=== PATIENT | male | born 1935 | race Caucasian/White ===

== ENCOUNTER 2016-09-07 09:44 | Observation (INO) | payer MEDICARE, MEDICAID ==
[~2016-09-07] VITALS: Ht 170.2 cm; Wt 79.4 kg
[~2016-09-07 09:44] MED LIST: ALLO15TA PO; AMLO5TAB2 PO; ASPI325T PO; ASPI32ECTA PO; CIPR-250 PO; EZETIMIBE 10 MG TAB (ZETIA) PO SCH; FEBU40TA PO; FEBUXOSTAT 40 MG TABLET (ULORIC) PO SCH; FERR325T3 PO; FLAG250T PO; FLOM5CAP PO; HYDR-4267 PO; HYDR25TAB PO; ISOS30TA4 PO; ISOSORBIDE MON. (IMDUR) 30 MG XR TAB PO SCH; LEVO25TA5 PO; LEVO500T32 PO; LEVO75TA4 PO; LEVOTHYROXINE 0.025 MG TAB (25 MCG) PO SCH; METO100T PO; METOPROLOL TARTRATE 100 MG TAB PO SCH; PROC1INJ5 INJ; TAMSULOSIN 0.4 MG CAP PO SCH; VITAMIN D 1,000 INTERNATIONAL UNITS TABLET PO SCH; ZETI10TA2 PO; ZYLO300T4 PO; [UNRECOGNIZED DRUG - OTHER] PO; amLODIPine 5 MG TAB PO SCH
[2016-09-07] MEDS ORDERED: IPRATROPIUM 0.5MG/ALBUTEROL 2.5MG INH SOL UD 3ML (DUONEB)(J7620) As Ordered ONE ×2 (10:26→15:51)
[2016-09-07] MEDS ORDERED: ALBUTEROL SULFATE 2.5 MG/0.5 ML INH NEB SOLN As Ordered ONE (10:27)
[2016-09-07] MEDS ORDERED: ONDANSETRON 4MG/2ML VIAL (J2405) As Ordered ONE ×2 (10:34→13:14)
[2016-09-07] MEDS ORDERED: MORPHINE 2 MG/ML 1ML SYRINGE As Ordered ONE ×4 (10:34→15:01)
[2016-09-07 11:08] LABS: BASO % 0.2 % (0.0-1.0); EOS # 0.2 K/mm3 (0.0-0.50); EOS % 1.8 % (0.0-3.0); LARGE UNSTAINED CELL # 0.2 K/mm3 (0.0-0.4); LARGE UNSTAINED CELL % 1.7 % (0.0-4.0); LYMPH # 0.5 K/mm3 (1.5-4.5); LYMPH % 4.6 % (24.0-44.0); MEAN CORPUSCULAR HGB CONC 32.2 g/dl (32.0-36.5); MEAN CORPUSCULAR VOLUME 96.4 fl (80.0-96.0); MONO # 0.6 K/mm3 (0.0-0.8); NEUTROPHILS # 9.9 K/mm3 (1.8-7.7); NEUTROPHILS % 86.7 % (36.0-66.0); RED CELL DISTRIBUTION WIDTH 14.6 % (11.5-14.5); WHITE BLOOD COUNT 11.4 K/mm3 (4.0-10.0)
[2016-09-07 11:12] LABS: PLATELET COUNT, AUTOMATED 81 k/mm3 (150-450)
[2016-09-07 11:43] LABS: ALBUMIN 3.2 GM/DL (3.2-5.2); ALBUMIN/GLOBULIN RATIO 0.73 (1.00-1.93); ALKALINE PHOSPHATASE 73 U/L (45-117); ALT/SGPT 12 U/L (12-78); AMYLASE 66 U/L (25-115); ANION GAP 12 MEQ/L (8-16); AST/SGOT 7 U/L (15-37); BILIRUBIN,DIRECT 0.1 MG/DL (0.0-0.2); BILIRUBIN,TOTAL 0.4 MG/DL (0.2-1.0); BLOOD UREA NITROGEN 54 MG/DL (7-18); CALCIUM LEVEL 8.1 MG/DL (8.8-10.2); CARBON DIOXIDE LEVEL 27 MEQ/L (21-32); CHLORIDE LEVEL 103 MEQ/L (98-107); CREATININE FOR GFR 7.62 MG/DL (0.70-1.30); GLOMERULAR FILTRATION RATE 7.3 (>35); GLUCOSE, FASTING 96 MG/DL (83-110); SODIUM LEVEL 142 MEQ/L (136-145); TOTAL PROTEIN 7.6 GM/DL (6.4-8.2)
[2016-09-07] MEDS ORDERED: PERCOCET 5MG/325MG TAB As Ordered ONE (12:15)
[2016-09-07] MEDS ORDERED: CYCLOBENZAPRINE 10 MG TAB As Ordered ONE (12:15)
[2016-09-07] MEDS ORDERED: AZITHROMYCIN INJ 500MG VIAL (J0456) As Ordered ONE (12:31)
[2016-09-07] MEDS ORDERED: cefTRIAXone SOD 1 GM VIAL (J0696) As Ordered ONE (12:31)
[2016-09-07] MEDS ORDERED: IBUP800T23 PO (12:54)
[2016-09-07] MEDS ORDERED: VITA100066 PO (12:54)
[2016-09-07] MEDS ORDERED: AMLO5TAB2 PO (12:54)
[2016-09-07] MEDS ORDERED: RENV2TAB PO (12:54)
--- NOTE | 2016-09-07 13:08 | REP ---
AP PORTABLE CHEST: 09/07/2016. Comparison: 02/19/2016. Clinical history: Dyspnea. Findings: Aortic stent graft in the descending aorta is seen from about the level of the left hilum inferior margin to the upper abdomen is unchanged. Heart size shows slight increase compared to previous study but there is a lower level of inflation. Pulmonary artery hypertension is noted prominently. There is some venous hypertension noted without pulmonary edema. Some basilar atelectasis or patchy infiltrate in the right infrahilar region seen. No gross effusion or dense consolidation with air bronchograms. Airway intact. Impression: 1. Infrahilar patchy atelectasis or infiltrate on the right with lesser degree of inflation which may be exaggerating heart size. 2. Aortic stent graft in the descending thoracic aorta unchanged with some tortuosity. 3. Degenerative changes of spine and shoulders with airway midline. No definite effusion. Signed by Caesar Zelaya MD 09/07/2016 06:40 P
[2016-09-07 13:11] LABS: ABG BASE EXCESS -4.7 (-2.0-2.0); ABG DEVICE NASAL CANN; ABG HCO3 20.6 MEQ/L (22.0-26.0); ABG PARTIAL PRESSURE O2 86.3 mmHg (75.0-100.0); ABG STANDARD HCO3 20.6 MEQ/L (22.0-26.0); ABG TOTAL CO2 21.8 MEQ/L (23.0-31.0); ABG pH (ARTERIAL) 7.341 UNITS (7.350-7.450)
[2016-09-07] MEDS ORDERED: ONDANSETRON 4MG/2ML VIAL (J2405) IV PRN (13:15)
[2016-09-07] MEDS ORDERED: MORPHINE 2 MG/ML 1ML SYRINGE IV PRN (13:15)
[2016-09-07] MEDS ORDERED: MORPHINE 4 MG/ML 1ML SYRINGE IV ONE (13:15)
[2016-09-07] MEDS ORDERED: ACETAMINOPHEN TAB 650MG DOSE (2X325MG) PO PRN (13:15)
[2016-09-07] MEDS ORDERED: PERCOCET 5MG/325MG TAB PO PRN (13:15)
[2016-09-07] MEDS ORDERED: ALBUTEROL SULFATE 2.5 MG/0.5 ML INH NEB SOLN INH PRN (13:30)
--- NOTE | 2016-09-07 13:32 | HPEPDOC ---
Medical History and Physical Date of Admission 09/07/16 History and Physical PRIMARY CARE PROVIDER: ATTENDING: Adelina Alegre M.D. CHIEF COMPLAINT: Intractable back pain HISTORY OF PRESENT ILLNESS: This is a 80-year-old male past medical history of CAD status post PCI, AAA repair, thoracic aortic aneurysm repair, hypertension, hypothyroidism, pancytopenia, COPD, BPH, ESRD on HD //Fri who presents complaining of intractable back pain. Patient states that he was throwing some Wood on Friday or afterwards he started to right sided shoulder/scapular pain on . Patient states pain has pressure-like, nonradiating, nonexertional, non-positional. States that the right shoulder/scapular pain is nonreproducible. Patient also complains of right lower thoracic/lumbar pain with radiation to the mid abdomen. States that pain occurred around the same time. This pain is reproducible on palpation. States the pain is excruciating, and has not responded to morphine, Percocet, Flexeril in the ED. Patient has also been short of breath over the past few days denies any cough. Was found to be hypoxic in the ED 88% in room air. Received nebs with some improvement. He does have a history of COPD however is not on oxygen and no prior intubations. Denies chest pain/palpitations/syncopal episodes. Was supposed to go for hemodialysis today however states the pain was excruciating and he was unable to go hemodialysis. PAST MEDICAL HISTORY: As per HPI PAST SURGICAL HISTORY: AAA repair, thoracic aortic aneurysm repair, PCI, aVF left arm SOCIAL HISTORY: History of 1 pack per day tobacco abuse 30 years. No alcohol or illicit drug use. FAMILY HISTORY: Noncontributory ALLERGIES: Please see below. REVIEW OF SYSTEMS: HEENT: Denies sore throat/headache CARDIOVASCULAR: Denies chest pain/palpitations RESPIRATORY: + shortness of breath. No cough GASTROINTESTINAL: denies nausea/vomiting GENITOURINARY: Denies dysuria/urinary urgency. MUSCULOSKELETAL: Denies myalgias/arthralgias NEUROLOGICAL: Denies any focal weakness Rest of ROS negative. HOME MEDICATIONS: Please see below. PHYSICAL EXAMINATION: Vitals: (see below) General: No acute distress, laying comfortably in bed. HEENT: Moist mucous membranes. Neck: No JVD or lymphadenopathy Cardiac: RRR, No murmurs Pulm: Diminished breath sounds and minimal coarse crackles at the bases b/l. No wheezing. Prolonged expiration. Minimal bilateral rhonchi. No stridor use of accessory muscles. Abd: NT/ND + BS Ext: No edema or cyanosis. Right shoulder with full range of motion and no pain elicited with active movements. Distal pulses intact. Right thoracic/lumbar paraspinal pain, as well as right flank and mid abdominal pain on palpation. LABORATORY DATA: See below. IMAGING: CXR 09/07/16 Impression: 1. Infrahilar patchy atelectasis or infiltrate on the right with lesser degree of inflation which may be exaggerating heart size. 2. Aortic stent graft in the descending thoracic aorta unchanged with some tortuosity. 3. Degenerative changes of spine and shoulders with airway midline. No definite effusion. MICROBIOLOGY: Please see below. ASSESSMENT/PLAN Endovascular T11 leak, with prior thoracic aortic aneurysm repair. Presented with intractable scapular/ lumbar/mid abdominal pain - CTA of the chest/abd noting T11 2.5x1.2x2.5 endo leak per radiology. I have spoken to Dr. Niño at [facility] in [place], who has accepted the patient to his service so that the patient may get this repaired. H/H stable. Hemodynamically stable. In the meantime will avoid NSAIDs given the thrombocytopenia. Percocet, morphine as needed. Will be sending CD with all the CT scans on it. HCAP with loculated right pleural effusion. Cultures sent. Started on Vanc/ zosyn. May need thoracentesis. COPD exacerbation, questionable infiltrates in the right lower lung field. Continue nebs, steroids, antibiotics. End-stage renal disease on hemodialysis- Friday//Friday- will be getting hemodialysis today. Please make note of the dialyzer he is allergic to. He is currently being dialyzed with Exeltra High Flux Dialyzer Model Exeltra 170. History of CAD status post PCI- continue aspirin, metoprolol, and statin Hypertension - controlled continue home meds. Thrombocytopenia- chronic, no active bleeding, we'll continue to monitor. Avoid NSAIDs. Hypothyroidism- continue Synthroid Vital Signs Blood pressure 130/69, heart rate 77, respiratory 16, afebrile, oxygen saturation 95% on room air. Laboratory Data Labs 24H Laboratory Tests 2 09/07/16 10:48: Aspartate Amino Transf (AST/SGOT) 7L, Alanine Aminotransferase (ALT/SGPT) 12, Alkaline Phosphatase 73, Total Bilirubin 0.4, Direct Bilirubin 0.1, Albumin 3.2 , Albumin/Globulin Ratio 0.73L, Amylase Level 66, Anion Gap 12, White Blood Count 11.4H, Red Blood Count 3.61L, Hemoglobin 11.2L, Hematocrit 34.8L, Mean Corpuscular Volume 96.4H, Mean Corpuscular Hemoglobin 31.0, Mean Corpuscular Hemoglobin Concent 32.2, Red Cell Distribution Width 14.6H, Platelet Count 81L, Neutrophils (%) (Auto) 86.7H, Lymphocytes (%) (Auto) 4.6L, Monocytes (%) (Auto) 5.0, Eosinophils (%) (Auto) 1.8, Basophils (%) (Auto) 0.2, Neutrophils # (Auto) 9.9H, Lymphocytes # (Auto) 0.5L, Monocytes # (Auto) 0.6, Eosinophils # (Auto) 0.2, Basophils # (Auto) 0.0, Calcium Level 8.1L, Creatine Kinase MB 1.5, Creatine Kinase MB Relative Index 3.57, Glomerular Filtration Rate 7.3L, Large Unclassified Cells # 0.2, Large Unclassified Cells % 1.7, Lipase 217, Total Creatine Kinase 42, Total Protein 7.6, Troponin I < 0.02 09/07/16 12:27: Arterial Blood pH 7.341L, Arterial Blood Partial Pressure CO2 39.0, Arterial Blood Partial Pressure O2 86.3, Arterial Blood Total CO2 21.8L, Arterial Blood HCO3 20.6L, Arterial Blood Base Excess -4.7L, Arterial Blood Oxygen Saturation 95.7, Blood Gas Bicarbonate Standard 20.6L, Oxygen Delivery Device NASAL CAMRYN CBC/BMP Laboratory Tests 09/07/16 10:48 Red Blood Count 3.61 L, Mean Corpuscular Volume 96.4 H, Mean Corpuscular Hemoglobin 31.0, Mean Corpuscular Hemoglobin Concent 32.2, Red Cell Distribution Width 14.6 H, Neutrophils (%) (Auto) 86.7 H, Lymphocytes (%) (Auto ) 4.6 L, Monocytes (%) (Auto) 5.0, Eosinophils (%) (Auto) 1.8, Basophils (%) ( Auto) 0.2, Neutrophils # (Auto) 9.9 H, Lymphocytes # (Auto) 0.5 L, Monocytes # ( Auto) 0.6, Eosinophils # (Auto) 0.2, Basophils # (Auto) 0.0 Microbiology Microbiology 09/07/16 Blood Culture, Received Pending 09/07/16 Blood Culture, Received Pending 09/07/16 Influenza Virus Type A Antigen - Final, Complete 09/07/16 Influenza Virus Type B Antigen - Final, Complete Home Medications Scheduled Amlodipine Besylate (Amlodipine Besylate) 5 Mg Tab 5 MG PO DAILY Cholecalciferol (Vitamin D) 1,000 Unit Tab 1,000 UNIT PO DAILY Ezetimibe (Zetia) 10 Mg Tab 10 MG PO DAILY Febuxostat (Uloric) 40 Mg Tab 40 MG PO DAILY Isosorbide Mononitrate (Isosorbide Mononitrate ER) 30 Mg Tab 30 MG PO DAILY Levothyroxine Sodium (Synthroid) 25 Mcg Tab 25 MCG PO DAILY Metoprolol Tartrate (Metoprolol Tartrate) 100 Mg Tab 100 MG PO BID Sevelamer Carbonate (Renvela) 800 Mg Tab 800 MG PO WM Tamsulosin Hydrochloride (Flomax) 0.4 Mg Cap 0.4 MG PO DAILY Scheduled PRN Ibuprofen (Ibuprofen) 800 Mg Tab 800 MG PO TID PRN PRN PAIN Allergies Coded Allergies: Unclassified Drugs (Unverified Allergy, Unknown, "SLEEPING PILLS", 02/17/16 ) Heparin (Verified Adverse Reaction, Intermediate, bleeding, 02/23/16) Patient with bleeding tendency, noted to have mildly elvated Heparin induced antibody, would avoid in future if possible Uncoded Allergies: [id number] Optiflux polysulfone Dialyzer (Allergy, Intermediate, thrombocytopenia and hemoptysis, 09/07/16) ADELINA ALEGRE MD Sep 07, 2016 13:32
[2016-09-07] MEDS ORDERED: ISOVUE-370 76% 100ML VIAL (Q9967) As Ordered ONE (14:20)
[2016-09-07] MEDS ORDERED: IPRATROPIUM 0.5MG/ALBUTEROL 2.5MG INH SOL UD 3ML (DUONEB)(J7620) NEB SCH (16:00)
[2016-09-07] MEDS ORDERED: PIPERACILLIN/TAZOBACTAM SOD 3.375 GM in D5W MINI-BAG PLUS 50 ML IV SCH (16:30)
[2016-09-07] MEDS ORDERED: (RENVELA) SEVELAMER **CARBONate** 800 MG TAB PO SCH (18:00)
[2016-09-07] MEDS ORDERED: VANCOMYCIN HCL 1,000 MG, VIAL MATE ADAPTER 1 EACH in D5W 250 ML IV ONE (18:00)
[2016-09-07] MEDS ORDERED: hydrALAZINE INJ 20 MG/ML VIAL As Ordered ONE (18:40)
[2016-09-07] MEDS ORDERED: MORPHINE 4 MG/ML 1ML SYRINGE As Ordered ONE (18:40)
[2016-09-07] MEDS ORDERED: LABETALOL HCL 100 MG/20 ML VIAL As Ordered ONE (18:42)
[2016-09-07] MEDS ORDERED: fentaNYL 100 MCG/2 ML INJECTION (J3010) As Ordered ONE ×2 (18:49→19:14)
[2016-09-07 19:14] LABS: MEAN CORPUSCULAR HEMOGLOBIN 31.6 pg (27.0-33.0); MEAN CORPUSCULAR HGB CONC 31.6 g/dl (32.0-36.5); MEAN CORPUSCULAR VOLUME 100.1 fl (80.0-96.0); RED CELL DISTRIBUTION WIDTH 14.4 % (11.5-14.5); WHITE BLOOD COUNT 12.1 K/mm3 (4.0-10.0)
--- NOTE | 2016-09-07 19:25 | EDDOCDS ---
Physician Documentation [facility] Name: Donovan Gibson Age: 80 yrs Sex: Male : 1935 Arrival Date: 09/07/2016 Time: 09:44 Bed 2 Private MD: Luca Bernabe P Disposition: 09/07/16 12:27 Hospitalization ordered by Austin Alegre for Inpatient Admission. Preliminary diagnosis are Pneumonia, unspecified organism, Acute respiratory failure with hypoxia, Acute pain due to trauma - upper back . - Bed requested for Admit. - Status is Inpatient Admission. sls1 - Condition is Stable. - Problem is new. - Symptoms are unchanged. Historical: - Allergies: Ambien; - Home Meds: 1. tamsulosin 0.4 mg oral cp24 1 cap once daily 2. Zetia 10 mg Oral tab 1 tab once daily 3. levothyroxine 25 mcg Oral tab 1 tab once daily 4. Isosorbide ER 30 mg daily 5. metoprolol tartrate 50 mg Oral tab 2 tabs 2 times per day 6. ibuprofen 800 mg Oral tab 1 tab 3 times per day as needed (Last dose: 09/07/2016 03:00) 7. Uloric 40 mg oral tab 1 tab once daily 8. isosorbide mononitrate 30 mg Oral Tb24 1 tab once daily 9. Kionex 15 gram/60 mL oral susp 60 mL once daily as needed 10. Renvela 800 mg oral tab 1 tab 3 times per day 11. amlodipine 5 mg Oral tab 1 tab once daily - PMHx: AAA; High Cholesterol; Hypertension; NE; Renal Failure with Dialysis; Thyroid problem; - PSHx: Stents, Coronary; AV Fistula- Left arm; AAA Repair; - Social history: Smoking status: Patient states former smoker of tobacco. No barriers to communication noted, The patient speaks fluent Moroccan, Speaks appropriately for age. - Family history: Not pertinent. - : The pt / caregiver states he / she is not on anticoagulants. Home medication list is obtained from the patient. - Exposure Risk Screening:: None identified. Vital Signs: 09/07 09:47 BP 151 / 69; Pulse 77; Resp 22; Temp 97.4; Pulse Ox 95% on R/A; Weight 79.38 kg / 175 dem1 lbs (R); Height 5 ft. 7 in. (170.18 cm) (R); 10:24 BP 136 / 63 (auto/); jjr 10:25 Pulse 66 MON; Pulse Ox 97% ; jjr 11:04 BP 162 / 69 (auto/); jjr 11:06 Pulse 76 MON; Pulse Ox 94% ; jjr 11:24 BP 138 / 60 (auto/); jjr 11:24 Pulse 78 MON; Resp 20; Pulse Ox 94% on 3 lpm NC; jjr 11:44 BP 128 / 58 (auto/); jjr 11:44 Pulse 82 MON; Pulse Ox 94% ; jjr 12:04 BP 133 / 60 (auto/); jjr 12:04 Pulse 84 MON; Pulse Ox 90% ; jjr 12:44 BP 143 / 65 (auto/); jjr 12:44 Pulse 92 MON; Pulse Ox 96% ; jjr 13:04 BP 130 / 71 (auto/); jjr 13:04 Pulse 86 MON; Resp 20; Pulse Ox 96% on 3 lpm NC; jjr 15:08 Temp 96.9(O); jjr 18:48 BP 133 / 65; Pulse 110; Resp 36; Temp 98.5(TE); Pulse Ox 93% 5 lpm ; rn1 18:57 BP 133 / 65 (auto/); jjr 19:03 Pulse Ox 95% on 3 lpm NC; jjr 19:04 BP 144 / 67 (auto/); jjr 19:04 Pulse 111 MON; Pulse Ox 95% ; jjr 19:10 BP 154 / 65 (auto/); jjr 19:10 Pulse 117 MON; Resp 24; Pulse Ox 94% on 3 lpm NC; jjr 09:47 Body Mass Index 27.41 (79.38 kg, 170.18 cm) dem1 18:48 PT O2 stat ranges from 88 to 94 rn1 MDM: 10:10 ECG WITH READING ER PHYS+CARDIAG ordered. EDMS 10:24 IV Saline Lock ordered. ml 10:24 -Blood Culture (Adults Only), peripheral from different site, or from device/port/PICC ml etc. if present ordered. 10:24 Albuterol 5 mg Nebulizer once ordered. ml 10:24 Albuterol-Ipratropium 3 ml Inhalation once ordered. ml 10:24 Call Respiratory ordered. ml 10:25 Oxygen at 4L/Min NC or Home dosage ordered. ml 10:25 Ondansetron 4 mg IVP once ordered. ml 10:25 morphine 2 mg IVP once ordered. ml 10:25 CBC with Diff Ordered. EDMS 10:25 MED Profile Ordered. EDMS 10:25 CIP Ordered. EDMS 10:25 Troponin Ordered. EDMS 10:25 Liver Profile Ordered. EDMS 10:25 Lipase Ordered. EDMS 10:25 Amylase Ordered. EDMS 10:26 Call Respiratory complete. jrd 10:26 Chest, 1 View Ordered. EDMS 10:26 -Blood Culture (Adults Only), peripheral from different site, or from device/port/PICC deg etc. if present complete. 10:27 BLOOD CULTURES Ordered. EDMS 10:35 Financial registration complete. mm15 10:36 [facility] Payment Agreement was scanned into adicate timeads and attached to record. mm15 10:56 morphine 2 mg IVP every 15 minutes; Document pain score/vitals after each dose (Hold if ml SBP < 90mmHg) x3 ordered. 11:38 CBC with Diff Reviewed. ml 11:59 MED Profile Reviewed. ml 11:59 Liver Profile Reviewed. ml 11:59 CIP Reviewed. ml 11:59 Troponin Reviewed. ml 11:59 Lipase Reviewed. ml 11:59 Amylase Reviewed. ml 12:00 Obtain sample by nasopharyngeal swab ordered. ml 12:01 -Influenza A&B Rapid Antigen - Nose Ordered. EDMS 12:08 oxyCODONE-acetaminophen 5 mg-325 mg 1 tabs PO once ordered. ml 12:08 Cyclobenzaprine 10 mg PO once ordered. ml 12:21 cefTRIAXone 1 grams IVPB once over 30 mins; dilute in 50mL of NS or D5W ordered. ml 12:21 azithromycin 500 mg IVPB once over 1 hrs; dilute in 250mL of D5W or NS ordered. ml 12:22 Call Respiratory ordered. ml 12:23 Call Respiratory complete. deg 12:23 BED REQUEST+ADM ordered. EDMS 12:23 -Arterial Blood Gas Ordered. EDMS 12:33 BLOOD CULTURES Ordered. EDMS 13:02 Ondansetron 4 mg IVP once ordered. ml 13:06 CT ANGIO CHEST Ordered. EDMS 13:06 CT ANGIO ABDOMEN Ordered. EDMS 13:06 CT Spine, lumbar w/o contrast Ordered. EDMS 13:07 CT Spine,thoracic w/o contrast Ordered. EDMS 13:20 LEGIONELLA ANTIGEN URINE Ordered. EDMS 13:20 URINE STREP PNEUMONIAE ANTIGEN Ordered. EDMS 13:21 INFLUENZA A&B RAPID ANTIGEN Ordered. EDMS 13:21 SPUTUM CULTURE AND GRAM STAIN Ordered. EDMS 13:22 Admission / Observation Status ordered. EDMS 13:23 CONSISTENT CARBOHYDRATES ordered. EDMS 13:29 -Arterial Blood Gas Reviewed. ml 13:29 -Influenza A&B Rapid Antigen - Nose Reviewed. ml 18:41 Type and Cross, Packed Cells Ordered. EDMS 18:41 TYPE & SCREEN Ordered. EDMS 18:53 fentaNYL (PF) 25 mcg IVP once ordered. jjr 18:55 Transfuse PRBC's 2 units, ensure PRBCs ordered in lab ordered. dy 19:01 fentaNYL (PF) 25 mcg IVP once ordered. jjr 19:02 Labetalol 10 mg IVP at bolus once over 2 mins ordered. jjr 19:10 CBC Ordered. EDMS 19:10 MED Profile Ordered. EDMS 19:13 fentaNYL (PF) 25 mcg IVP once ordered. jjr 19:13 fentaNYL (PF) 25 mcg IVP once ordered. jjr Administered Medications: 10:40 Drug: Albuterol 5 mg [albuterol sulfate 2.5 mg/0.5 mL solution for nebulization (1 mL)] [facility] Route: Nebulizer; 10:47 Follow up: Response: Nebulizer completed [facility] 10:40 Drug: Albuterol-Ipratropium 3 ml [ipratropium-albuterol 0.5 mg-3 mg(2.5 mg base)/3 mL [facility] nebulization soln (3 mL)] Route: Inhalation; 10:47 Follow up: Response: Nebulizer completed [facility] 10:40 Drug: Ondansetron 4 mg [ondansetron HCl 2 mg/mL intravenous solution (2 mL)] Route: jjr IVP; Site: right hand; 10:40 Drug: morphine 2 mg [morphine 2 mg/mL intravenous cartridge (1 mL)] Route: IVP; Site: jjr right hand; 11:17 Drug: morphine 2 mg [morphine 2 mg/mL intravenous cartridge (1 mL)] Route: IVP; Site: dy right hand; 11:38 Drug: morphine 2 mg [morphine 2 mg/mL intravenous cartridge (1 mL)] Route: IVP; Site: [facility] right hand; 12:18 Drug: oxyCODONE-acetaminophen 5 mg-325 mg 1 tabs Route: PO; jr 12:18 Drug: Cyclobenzaprine 10 mg [cyclobenzaprine 10 mg tablet (1 tabs)] Route: PO; jr 12:41 Drug: cefTRIAXone 1 grams [ceftriaxone 1 gram solution for injection] Route: IVPB; jjr Infused Over: 30 mins; Site: right hand; Delivery: Syringe pump; 13:09 Drug: azithromycin 500 mg [azithromycin 500 mg intravenous solution] Route: IVPB; jjr Infused Over: 1 hrs; Site: right hand; 14:13 Follow up: IV Status: Completed infusion; IV Intake: 250ml r 13:20 Drug: Ondansetron 4 mg [ondansetron HCl 2 mg/mL intravenous solution (2 mL)] Route: jr IVP; Site: right hand; 15:06 Drug: morphine 2 mg [morphine 2 mg/mL intravenous cartridge (1 mL)] Route: IVP; Site: r right hand; 18:50 Drug: Labetalol 10 mg [labetalol 5 mg/mL intravenous solution (2 mL)] {Note: verbal Dr jameson Ahbed at bedside given by Jacquie FIELDS.} Route: IVP; Rate: bolus; Infused Over: 2 mins; Site: right antecubital; 18:53 Drug: fentaNYL (PF) 25 mcg [fentanyl (PF) 50 mcg/mL injection solution (0.5 mL)] Route: jjr IVP; Site: right antecubital; 19:02 Drug: fentaNYL (PF) 25 mcg [fentanyl (PF) 50 mcg/mL injection solution (0.5 mL)] Route: jjr IVP; Site: right hand; 19:08 Drug: fentaNYL (PF) 25 mcg [fentanyl (PF) 50 mcg/mL injection solution (0.5 mL)] Route: jjr IVP; Site: right hand; 19:13 Drug: fentaNYL (PF) 25 mcg [fentanyl (PF) 50 mcg/mL injection solution (0.5 mL)] Route: jjr IVP; Site: right hand; Signatures: Dispatcher [employer] EDMS Chester Elkins MD MD ml Fernando, Benita, Applications Trainer Unit deg Jaziel , Magalis, RN RN daq Chuck Gracia, RN RN Maxime Sarmiento RN RN [id number] Queta Richards, RN RN jChina Ibrahim RN RN sls1 Shaka Reynoso mm15 Lazaro Kraus, [employer] RECEIVABLE SPECIALIST jrd Treva Henson [id number] The chart was reviewed and I authenticate all verbal orders and agree with the evaluation and treatment provided.Corrections: (The following items were deleted from the chart) 12:33 10:26 -BLOOD CULTURES+CATHERINE ordered. EDMS EDMS 19:14 19:06 COMPLETE BLOOD COUNT ordered. EDMS EDMS Attachments: 10:36 [facility] Payment Agreement mm15 MTDD
--- NOTE | 2016-09-07 19:26 | EDDOCDS ---
Nurse's Notes [facility] Name: Donovan Gibson Age: 80 yrs Sex: Male : 1935 Arrival Date: 09/07/2016 Time: 09:44 Bed 2 Private MD: Luca Bernabe P Diagnosis: Pneumonia, unspecified organism;Acute respiratory failure with hypoxia;Acute pain due to trauma-upper back Presentation: 09/07 09:50 Presenting complaint: Patient states: Right anterior and posterior chest wall pain mlb1 radiating to left scapular area began . Adult Sepsis Screening: The patient does not have new or worsening altered mentation. Patient's respiratory rate is less than 22. Systolic blood pressure is greater than 100. Patient has a qSOFA score of 0- Negative Sepsis Screen. Suicide/Homicide risk assessment- the patient denies having any suicidal and/or homicidal ideations and does not present with any other emotional, behavioral or mental health complaints. 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 Transition of care: patient was not received from another setting of care. 09:50 Acuity: MARLENA Level 3 mlb1 09:50 Method Of Arrival: Walkin/Carried/Asstd mlb1 Triage Assessment: 09:57 General: Appears distressed, Behavior is anxious, cooperative. Pain: Location: right mlb1 lateral anterior chest and right lateral posterior chest Pain currently is 8 out of 10 on a pain scale. Pain radiates to right scapular area. Historical: - Allergies: Ambien; - Home Meds: 1. tamsulosin 0.4 mg oral cp24 1 cap once daily 2. Zetia 10 mg Oral tab 1 tab once daily 3. levothyroxine 25 mcg Oral tab 1 tab once daily 4. Isosorbide ER 30 mg daily 5. metoprolol tartrate 50 mg Oral tab 2 tabs 2 times per day 6. ibuprofen 800 mg Oral tab 1 tab 3 times per day as needed (Last dose: 09/07/2016 03:00) 7. Uloric 40 mg oral tab 1 tab once daily 8. isosorbide mononitrate 30 mg Oral Tb24 1 tab once daily 9. Kionex 15 gram/60 mL oral susp 60 mL once daily as needed 10. Renvela 800 mg oral tab 1 tab 3 times per day 11. amlodipine 5 mg Oral tab 1 tab once daily - PMHx: AAA; High Cholesterol; Hypertension; PR; Renal Failure with Dialysis; Thyroid problem; - PSHx: Stents, Coronary; AV Fistula- Left arm; AAA Repair; - Social history: Smoking status: Patient states former smoker of tobacco. No barriers to communication noted, The patient speaks fluent Samoan, Speaks appropriately for age. - Family history: Not pertinent. - : The pt / caregiver states he / she is not on anticoagulants. Home medication list is obtained from the patient. - Exposure Risk Screening:: None identified. Screenin:57 Fall Risk. jjr 11:28 Screening information is obtained from the patient. Fall risk: At risk due to age, The jjr following interventions are performed due to a positive Fall Risk Screen: added to special handling. Assistance ADL's: Requires assistance with meal preparation, this assistance is provided by family members, housework, assistance is provided by family members. Abuse/DV Screen: The patient / caregiver reports he/she is: not in a situation that causes fear, pain or injury. Nutritional screening: No deficits noted. Advance Directives: Currently, there is a health care proxy, Destini Gibson . There is no active DNR order. home support is adequate. Assessment: 10:57 General: Appears uncomfortable, well nourished, well groomed, Behavior is appropriate jjr for age. Pain: Location: right trapezius, thoracic area and anterior aspect of right shoulder. Pain: Aggravated by increased activity. Neurological: No deficits noted. Respiratory: Airway is patent Respiratory effort is even, labored, Respiratory pattern is regular, congested cough. Derm: Skin is pink, warm & dry. 11:25 Respiratory: Breath sounds are diminished bilaterally. jjr 12:10 General: Appears in no apparent distress, Behavior is appropriate for age, sitting in jjr chair at bedside continues to report ache to thoracic spine abdomen and right shoulder. Neurological: No deficits noted. Cardiovascular: Rhythm is sinus rhythm. Respiratory: Reports pain with movement pain with respiration. Derm: No deficits noted. 13:10 General: Appears in no apparent distress, no change in pain to back right shoulder and jjr tender to palpation to right lateral abdomen. Cardiovascular: Rhythm is sinus rhythm. Respiratory: Airway is patent Respiratory effort is even, unlabored, Respiratory pattern is regular. Derm: No deficits noted. (+) thrill to left biceps AV fistula. 14:29 General: Appears in no apparent distress, reports some relief of back right shoulder jjr and right lateral abdominal pain, family attentive at bedside. Neurological: No deficits noted. Cardiovascular: Rhythm is sinus rhythm. Respiratory: Airway is patent Respiratory effort is even, unlabored, Respiratory pattern is regular. GI: other pt tolerated jello. Derm: Skin is pink, warm & dry. 15:09 General: pt to dialysis via WC. jjr 18:54 General: Appears uncomfortable, Behavior is restless. Neurological: No deficits noted. jjr Cardiovascular: Rhythm is sinus tachycardia. Respiratory: Airway is patent Respiratory effort is even, unlabored, Respiratory pattern is regular. Derm: Skin is dry, Skin temperature is warm. Vital Signs: 09:47 BP 151 / 69; Pulse 77; Resp 22; Temp 97.4; Pulse Ox 95% on R/A; Weight 79.38 kg (R); dem1 Height 5 ft. 7 in. (170.18 cm) (R); 10:24 BP 136 / 63 (auto/); jjr 10:25 Pulse 66 MON; Pulse Ox 97% ; jjr 11:04 BP 162 / 69 (auto/); jjr 11:06 Pulse 76 MON; Pulse Ox 94% ; jjr 11:24 BP 138 / 60 (auto/); jjr 11:24 Pulse 78 MON; Resp 20; Pulse Ox 94% on 3 lpm NC; jjr 11:44 BP 128 / 58 (auto/); jjr 11:44 Pulse 82 MON; Pulse Ox 94% ; jjr 12:04 BP 133 / 60 (auto/); jjr 12:04 Pulse 84 MON; Pulse Ox 90% ; jjr 12:44 BP 143 / 65 (auto/); jjr 12:44 Pulse 92 MON; Pulse Ox 96% ; jjr 13:04 BP 130 / 71 (auto/); jjr 13:04 Pulse 86 MON; Resp 20; Pulse Ox 96% on 3 lpm NC; jjr 15:08 Temp 96.9(O); jjr 18:48 BP 133 / 65; Pulse 110; Resp 36; Temp 98.5(TE); Pulse Ox 93% 5 lpm ; rn1 18:57 BP 133 / 65 (auto/); jjr 19:03 Pulse Ox 95% on 3 lpm NC; jjr 19:04 BP 144 / 67 (auto/); jjr 19:04 Pulse 111 MON; Pulse Ox 95% ; jjr 19:10 BP 154 / 65 (auto/); jjr 19:10 Pulse 117 MON; Resp 24; Pulse Ox 94% on 3 lpm NC; jjr 09:47 Body Mass Index 27.41 (79.38 kg, 170.18 cm) dem1 18:48 PT O2 stat ranges from 88 to 94 rn1 Vitals: 09:47 Log In Time: September 07, 2016 at 09:45. [facility] ED Course: 09:46 Patient visited by Yuri Beavers. dem1 09:46 Patient moved to Waiting dem1 09:47 Luca Bernabe is Private Physician. dem1 09:48 Patient visited by Yuri Beavers. dem1 09:49 Patient moved to Pre RCE dem1 09:50 Patient visited by Maxime Hunter, RN. mlb1 09:51 Triage Initiated mlb1 09:58 Patient visited by Maxime Hunter, RN. mlb1 09:58 Patient moved to Triage 3 mlb1 09:59 Patient visited by Maxime Hunter, RN. mlb1 10:07 Queta Richards, RN is Primary Nurse. ck1 10:07 Patient moved to 17 ck1 10:15 Chester Elkins MD is Attending Physician. ml 10:15 Patient visited by Chester Elkins MD. ml 10:24 EKG done. (by ED staff). Reviewed by Chester Elkins MD. jrd 10:36 [facility] Payment Agreement was scanned into [employer] and attached to record. mm15 10:57 Inserted saline lock: 20 gauge in right hand and blood collected. Labs/Blood culture jjr drawn. 10:57 Missed attempts: 20 gauge X 1 in right antecubital area, Bleeding controlled, band aid jjr applied, catheter tip intact. 10:58 Patient visited by Queta Richards, RN. jjr 10:58 The patient / caregiver is instructed regarding the plan of care and ED course. Cardiac jjr monitor on. Pulse ox on. NIBP on. 10:58 O2 via nasal cannula \T\ 3L/min. jjr 12:11 Patient visited by Queta Richards RN. jjr 12:11 -Influenza A&B Rapid Antigen - Nose Sent. jjr 12:27 Austin Alegre is Hospitalizing Provider. ml 12:32 Patient visited by Suzie Myers. sew 12:32 Labs/Blood culture drawn. sew 12:38 -Arterial Blood Gas Sent. km6 13:11 Patient visited by Queta Richards RN. jjr 13:31 Chest, 1 View Returned. EDMS 14:30 Patient visited by Queta Richards, DONNIE. jjr 15:29 Patient moved to Admit Hold dy 15:38 Patient moved to 21 dy 18:48 Patient moved to 2 rn1 18:55 Patient visited by Queta Richards, DONNIE. jjr 18:59 Patient visited by William Ibarra. rn1 19:03 No procedures done that require assistance. jjr 19:11 Samantha Knutosn,RN is Primary Nurse. af2 19:15 Primary Nurse role handed off by Queta Richards, DONNIE jjr Administered Medications: 10:40 Drug: Albuterol 5 mg [albuterol sulfate 2.5 mg/0.5 mL solution for nebulization (1 mL)] [facility] Route: Nebulizer; 10:47 Follow up: Response: Nebulizer completed 6 10:40 Drug: Albuterol-Ipratropium 3 ml [ipratropium-albuterol 0.5 mg-3 mg(2.5 mg base)/3 mL [facility] nebulization soln (3 mL)] Route: Inhalation; 10:47 Follow up: Response: Nebulizer completed 6 10:40 Drug: Ondansetron 4 mg [ondansetron HCl 2 mg/mL intravenous solution (2 mL)] Route: jjr IVP; Site: right hand; 10:40 Drug: morphine 2 mg [morphine 2 mg/mL intravenous cartridge (1 mL)] Route: IVP; Site: jjr right hand; 11:17 Drug: morphine 2 mg [morphine 2 mg/mL intravenous cartridge (1 mL)] Route: IVP; Site: dy right hand; 11:38 Drug: morphine 2 mg [morphine 2 mg/mL intravenous cartridge (1 mL)] Route: IVP; Site: [facility] right hand; 12:18 Drug: oxyCODONE-acetaminophen 5 mg-325 mg 1 tabs Route: PO; jr 12:18 Drug: Cyclobenzaprine 10 mg [cyclobenzaprine 10 mg tablet (1 tabs)] Route: PO; jr 12:41 Drug: cefTRIAXone 1 grams [ceftriaxone 1 gram solution for injection] Route: IVPB; jjr Infused Over: 30 mins; Site: right hand; Delivery: Syringe pump; 13:09 Drug: azithromycin 500 mg [azithromycin 500 mg intravenous solution] Route: IVPB; jjr Infused Over: 1 hrs; Site: right hand; 14:13 Follow up: IV Status: Completed infusion; IV Intake: 250ml jr 13:20 Drug: Ondansetron 4 mg [ondansetron HCl 2 mg/mL intravenous solution (2 mL)] Route: jr IVP; Site: right hand; 15:06 Drug: morphine 2 mg [morphine 2 mg/mL intravenous cartridge (1 mL)] Route: IVP; Site: r right hand; 18:50 Drug: Labetalol 10 mg [labetalol 5 mg/mL intravenous solution (2 mL)] {Note: verbal Dr jameson Ahbed at bedside given by Jacquie FIELDS.} Route: IVP; Rate: bolus; Infused Over: 2 mins; Site: right antecubital; 18:53 Drug: fentaNYL (PF) 25 mcg [fentanyl (PF) 50 mcg/mL injection solution (0.5 mL)] Route: jjr IVP; Site: right antecubital; 19:02 Drug: fentaNYL (PF) 25 mcg [fentanyl (PF) 50 mcg/mL injection solution (0.5 mL)] Route: jjr IVP; Site: right hand; 19:08 Drug: fentaNYL (PF) 25 mcg [fentanyl (PF) 50 mcg/mL injection solution (0.5 mL)] Route: jjr IVP; Site: right hand; 19:13 Drug: fentaNYL (PF) 25 mcg [fentanyl (PF) 50 mcg/mL injection solution (0.5 mL)] Route: jjr IVP; Site: right hand; Intake: 14:13 IV: 250.00ml; Total: 250.00ml. jjr RT: 10:46 Initial Med Neb Given as ordered Patient was instructed and evaluated on procedure km6 Patient tolerated procedure well without adverse effect. Respiratory: Breath sounds are coarse bilaterally. Breath sounds with rhonchi bilaterally. 12:38 ABG's drawn from right radial artery allens test done and positive pressure held for 5 km6 minutes specimen sent pt. tolerated well. Order Results: Lab Order: CBC with Diff; SPEC'M 09/07/16 10:48 Test: WHITE BLOOD COUNT; Value: 11.4; Range: 4.0-10.0; Abnormal: Above high normal; Units: K/mm3; Status: F Test: RED BLOOD COUNT; Value: 3.61; Range: 4.30-6.10; Abnormal: Below low normal; Units: M/mm3; Status: F Test: HEMOGLOBIN; Value: 11.2; Range: 14.0-18.0; Abnormal: Below low normal; Units: g/dl; Status: F Test: HEMATOCRIT; Value: 34.8; Range: 42.0-52.0; Abnormal: Below low normal; Units: %; Status: F Test: MEAN CORPUSCULAR VOLUME; Value: 96.4; Range: 80.0-96.0; Abnormal: Above high normal; Units: fl; Status: F Test: MEAN CORPUSCULAR HEMOGLOBIN; Value: 31.0; Range: 27.0-33.0; Units: pg; Status: F Test: MEAN CORPUSCULAR HGB CONC; Value: 32.2; Range: 32.0-36.5; Units: g/dl; Status: F Test: RED CELL DISTRIBUTION WIDTH; Value: 14.6; Range: 11.5-14.5; Abnormal: Above high normal; Units: %; Status: F Test: PLATELET COUNT, AUTOMATED; Value: 81; Range: 150-450; Abnormal: Below low normal; Units: k/mm3; Status: F Test: NEUTROPHILS %; Value: 86.7; Range: 36.0-66.0; Abnormal: Above high normal; Units: %; Status: F Test: LYMPH %; Value: 4.6; Range: 24.0-44.0; Abnormal: Below low normal; Units: %; Status: F Test: MONO %; Value: 5.0; Range: 0.0-5.0; Units: %; Status: F Test: EOS %; Value: 1.8; Range: 0.0-3.0; Units: %; Status: F Test: BASO %; Value: 0.2; Range: 0.0-1.0; Units: %; Status: F Test: LARGE UNSTAINED CELL %; Value: 1.7; Range: 0.0-4.0; Units: %; Status: F Test: NEUTROPHILS #; Value: 9.9; Range: 1.8-7.7; Abnormal: Above high normal; Units: K/mm3; Status: F Test: LYMPH #; Value: 0.5; Range: 1.5-4.5; Abnormal: Below low normal; Units: K/mm3; Status: F Test: MONO #; Value: 0.6; Range: 0.0-0.8; Units: K/mm3; Status: F Test: EOS #; Value: 0.2; Range: 0.0-0.50; Units: K/mm3; Status: F Test: BASO #; Value: 0.0; Range: 0.0-0.2; Units: K/mm3; Status: F Test: LARGE UNSTAINED CELL #; Value: 0.2; Range: 0.0-0.4; Units: K/mm3; Status: F Lab Order: MED Profile; SPEC'M 09/07/16 10:48 Test: GLUCOSE, FASTING; Value: 96; Range: 83-110; Units: MG/DL; Status: F Test: BLOOD UREA NITROGEN; Value: 54; Range: 7-18; Abnormal: Above high normal; Units: MG/DL; Status: F Test: CREATININE FOR GFR; Value: 7.62; Range: 0.70-1.30; Abnormal: Above high normal; Units: MG/DL; Status: F Test: GLOMERULAR FILTRATION RATE; Value: 7.3; Range: >35; Abnormal: Below low normal; Status: F Test: SODIUM LEVEL; Value: 142; Range: 136-145; Units: MEQ/L; Status: F Test: POTASSIUM SERUM; Value: 4.0; Range: 3.5-5.1; Units: MEQ/L; Status: F Test: CHLORIDE LEVEL; Value: 103; Range: 98-107; Units: MEQ/L; Status: F Test: CARBON DIOXIDE LEVEL; Value: 27; Range: 21-32; Units: MEQ/L; Status: F Test: ANION GAP; Value: 12; Range: 8-16; Units: MEQ/L; Status: F Test: CALCIUM LEVEL; Value: 8.1; Range: 8.8-10.2; Abnormal: Below low normal; Units: MG/DL; Status: F Test Note: ; Units are mL/min/1.73 m2 Chronic Kidney Disease Staging per NKF: Stage I & II GFR >=60 Normal to Mildly Decreased Stage III GFR 30-59 Moderately Decreased Stage IV GFR 15-29 Severely Decreased Stage V GFR <15 Very Little GFR Left ESRD GFR <15 on [employer] Lab Order: CIP; [facility] 09/07/16 10:48 Test: CPK CREATINE PHOSPHOKINASE; Value: 42; Range: 39-308; Units: U/L; Status: F Test: CK-MB VALUE MASS; Value: 1.5; Range: 0.0-3.6; Units: NG/ML; Status: F Test: MB/CK RELATIVE INDEX; Value: 3.57; Range: < OR =4; Status: F Test Note: ; DIAGNOSIS CRITERIA MMB ng/ml Relative Index (RI) NON-AMI < or = 5 N/A ROMERO ZONE > 5 < or = 4 AMI > 5 > 4 Lab Order: Troponin; [facility] 09/07/16 10:48 Test: TROPONIN I; Value: < 0.02; Range: < 0.10; Units: NG/ML; Status: F Test Note: ; Troponin I Reference Interval for [employer] LOCI: 99th Percentile= 0.00-0.045 ng/ml Risk Stratification: <= 0.10 ng/ml Decreased Risk for Adverse Clinical Events. 0.10-1.50 ng/ml Increased Risk for Adverse Clinical Events. Evaluation of additional criterion and/or repeat testing in 2-6 hours is suggested to rule out myocardial damage. >= 1.50 ng/ml Indicative of Myocardial Injury. Lab Order: Liver Profile; SPEC09/07/16 10:48 Test: AST/SGOT; Value: 7; Range: 15-37; Abnormal: Below low normal; Units: U/L; Status: F Test: ALT/SGPT; Value: 12; Range: 12-78; Units: U/L; Status: F Test: ALKALINE PHOSPHATASE; Value: 73; Range: 45-117; Units: U/L; Status: F Test: BILIRUBIN,TOTAL; Value: 0.4; Range: 0.2-1.0; Units: MG/DL; Status: F Test: BILIRUBIN,DIRECT; Value: 0.1; Range: 0.0-0.2; Units: MG/DL; Status: F Test: TOTAL PROTEIN; Value: 7.6; Range: 6.4-8.2; Units: GM/DL; Status: F Test: ALBUMIN; Value: 3.2; Range: 3.2-5.2; Units: GM/DL; Status: F Test: ALBUMIN/GLOBULIN RATIO; Value: 0.73; Range: 1.00-1.93; Abnormal: Below low normal; Status: F Lab Order: Lipase; [facility]' 09/07/16 10:48 Test: LIPASE; Value: 217; Range: 73-393; Units: U/L; Status: F Lab Order: Amylase; SPEC'M 09/07/16 10:48 Test: AMYLASE; Value: 66; Range: 25-115; Units: U/L; Status: F Lab Order: -Influenza A&B Rapid Antigen - Nose; SPEC' 09/07/16 12:08 Test: INFLUENZA A RAPID SCR by ICA; Value: INFLUENZA A RESULTS NEGATIVE; Status: F Test: INFLUENZA A RAPID SCR by ICA; Value: Comments:; Status: F Test: INFLUENZA B RAPID SCR by ICA; Value: INFLUENZA B RESULTS NEGATIVE; Status: F Test Note: ; The Influenza test is a direct rapid immunoassay for the qualitative detection of Influenza viral antigen. Cell culture (Viral Culture) testing should be considered to confirm NEGATIVE results and to assist in detecting other viruses that can provide similar clinical symptoms. Please contact the lab within 24 hours [phone]) if confirmatory testing is desired. Lab Order: -Arterial Blood Gas; SPEC'M 09/07/16 12:27 Test: ABG pH (ARTERIAL); Value: 7.341; Range: 7.350-7.450; Abnormal: Below low normal; Units: UNITS; Status: F Test: ABG PARTIAL PRESSURE CO2; Value: 39.0; Range: 35.0-45.0; Units: mmHg; Status: F Test: ABG PARTIAL PRESSURE O2; Value: 86.3; Range: 75.0-100.0; Units: mmHg; Status: F Test: ABG TOTAL CO2; Value: 21.8; Range: 23.0-31.0; Abnormal: Below low normal; Units: MEQ/L; Status: F Test: ABG HCO3; Value: 20.6; Range: 22.0-26.0; Abnormal: Below low normal; Units: MEQ/L; Status: F Test: ABG BASE EXCESS; Value: -4.7; Range: -2.0-2.0; Abnormal: Below low normal; Status: F Test: ABG STANDARD HCO3; Value: 20.6; Range: 22.0-26.0; Abnormal: Below low normal; Units: MEQ/L; Status: F Test: ABG O2 SATURATION; Value: 95.7; Range: 95.0-99.0; Units: %; Status: F Test: ABG DEVICE; Value: NASAL CAMRYN; Status: F Lab Order: CBC; SPEC'M 09/07/16 19:08 Test: WHITE BLOOD COUNT; Value: 12.1; Range: 4.0-10.0; Abnormal: Above high normal; Units: K/mm3; Status: F Test: RED BLOOD COUNT; Value: 3.03; Range: 4.30-6.10; Abnormal: Below low normal; Units: M/mm3; Status: F Test: HEMOGLOBIN; Value: 9.6; Range: 14.0-18.0; Abnormal: Below low normal; Units: g/dl; Status: F Test: HEMATOCRIT; Value: 30.3; Range: 42.0-52.0; Abnormal: Below low normal; Units: %; Status: F Test: MEAN CORPUSCULAR VOLUME; Value: 100.1; Range: 80.0-96.0; Abnormal: Above high normal; Units: fl; Status: F Test: MEAN CORPUSCULAR HEMOGLOBIN; Value: 31.6; Range: 27.0-33.0; Units: pg; Status: F Test: MEAN CORPUSCULAR HGB CONC; Value: 31.6; Range: 32.0-36.5; Abnormal: Below low normal; Units: g/dl; Status: F Test: RED CELL DISTRIBUTION WIDTH; Value: 14.4; Range: 11.5-14.5; Units: %; Status: F Test: PLATELET COUNT, AUTOMATED; Value: 63; Range: 150-450; Abnormal: Below low normal; Units: k/mm3; Status: F Radiology Order: Chest, 1 View Test: Chest, 1 View REASON FOR EXAMINATION: sob; AP PORTABLE CHEST: 09/07/2016.; ; Comparison: 02/19/2016.; ; Clinical history: Dyspnea.; ; Findings: Aortic stent graft in the descending aorta is seen from about the; level of the left hilum inferior margin to the upper abdomen is unchanged. Heart; size shows slight increase compared to previous study but there is a lower level; of inflation. Pulmonary artery hypertension is noted prominently. There is some; venous hypertension noted without pulmonary edema. Some basilar atelectasis or; patchy infiltrate in the right infrahilar region seen. No gross effusion or; dense consolidation with air bronchograms. Airway intact.; ; Impression:; ; 1. Infrahilar patchy atelectasis or infiltrate on the right with lesser degree; of inflation which may be exaggerating heart size.; ; 2. Aortic stent graft in the descending thoracic aorta unchanged with some; tortuosity.; ; 3. Degenerative changes of spine and shoulders with airway midline. No definite; effusion.; ; ; Signed by; Caesar Zelaya MD 09/07/2016 06:40 P; Outcome: 12:27 Decision to Hospitalize by Provider. 19:22 Discharge Assessment: patient administered narcotics - yes. Patient was admitted to the [address] or transferred to another facility. The following High Risk Discharge criteria are identified: Yes, critical transport. Transferred to [facility]. by EMS ground [facility]. critical. CT Study completed. Property :Personal belongings accompany Pt. 19:25 Patient left the ED. [facility] Signatures: Dispatcher [employer] EDMS Chester Elkins MD MD ml Youngs, David, DONNIE FIELDS dy Maxime Hunter RN RN mlb1 Treva Henson 6 Leigh Mendieta RN RN ck1 Queta Richards RN RN China Armstrong RN RN sls1 uYri Beavers dem1 Suzie Myers Marlynn mm15 Lazaro Kraus, LEONARDO TIMBER CRUISER d Samantha Knutson,RN RN af2 William Ibarra rn1 Corrections: (The following items were deleted from the chart) 12:33 12:32 -BLOOD CULTURES+CATHERINE sent. yonathan EDMS MTDD
[2016-09-07 19:27] LABS: GLOMERULAR FILTRATION RATE 22.6 (>35); POTASSIUM SERUM 3.2 MEQ/L (3.5-5.1)
[2016-09-07 19:48] LABS: CALCIUM LEVEL 6.6 MG/DL (8.8-10.2); CREATININE FOR GFR 2.87 MG/DL (0.70-1.30)
[2016-09-07] MEDS ORDERED: PIPERACILLIN/TAZOBACTAM SOD 2.25 GM in D5W MINI-BAG PLUS 50 ML IV SCH (20:00)
--- NOTE | 2016-09-07 20:05 | CR ---
DATE OF CONSULTATION: 09/07/2016 REQUESTING PHYSICIAN: Dr. Austin Alegre CONSULTING PHYSICIAN: Dr. Walton REASON FOR CONSULTATION: Management of end stage renal disease and hemodialysis. CHIEF COMPLAINT: The patient presented to the emergency room with intractable right sided chest pain and back pain. HISTORY OF PRESENT ILLNESS: Mr. Donovan Gibson is an 80-year-old male with a past medical history of end stage renal disease on hemodialysis every Friday, and Friday, extensive comorbidities in the past, including coronary artery disease, history of thoracic aortic aneurysm repair, history of abdominal aortic aneurysm repair as well, hypertension, multiple other comorbidities, as mentioned below, he presented to the emergency room today with a severe right sided chest pain radiating to the back, almost 10/10 intensity, and going to the right shoulder as well. It was a pressure like pain. It was not positional. The patient also reported some cough, chills, and rigors. He denied any fevers. The patient missed his hemodialysis today so nephrology service was called for further management of end stage renal disease. The patient was admitted for further investigation of his thoracic aortic aneurysm and possible right sided pneumonia, which was shown on the chest x-ray. The patient got a CT angiogram of the chest and abdomen, which showed right sided lung consolidation and preliminary report also showed small endovascular leak. Primary team is trying to arrange transportation of the patient from our hospital to a higher level of care after hemodialysis is done today. PAST MEDICAL HISTORY: He has a history of: 1. End stage renal disease on hemodialysis every Friday, and Friday. 2. Coronary artery disease status post stents. 3. History of abdominal aortic aneurysm repair, status post thoracic aortic aneurysm repair. 4. Hypertension. 5. Hypothyroidism. 6. History of pancytopenia. 7. Chronic obstructive pulmonary disease (COPD). 8. Benign prostatic hypertrophy (BPH) . PAST SURGICAL HISTORY: 1. Abdominal aortic aneurysm repair. 2. Thoracic aortic aneurysm repair. 3. PCI and stent to the coronaries. 4. Status post left arm AV fistula placement. ALLERGIES: The patient is allergic to HEPARIN and he is allergic to FRESENIUS F160 OPTI FLUX DIALYZER. Now he is being dialyzed with a Cunningham dialyzer membrane. FAMILY HISTORY: No significant family history of end stage renal disease requiring hemodialysis. SOCIAL HISTORY: The patient denies any alcohol abuse or drug abuse. There is a past history of 30 pack years of smoking. REVIEW OF SYSTEMS: CONSTITUTIONAL: The patient reports chills and rigors. He denies any fever. EYES: He denies any blurry vision or decreased vision or double vision. ENT: He denies any dysphagia or odynophagia or any ear discharge. CARDIOVASCULAR: The patient does report right sided chest pain. There is no left sided chest pain. He denies any palpitations. RESPIRATORY : The patient did report some shortness of breath and mild cough. He is not bringing up any phlegm at this time. GASTROINTESTINAL: He denies any nausea or vomiting or diarrhea. GENITOURINARY: The patient denies any dysuria or hematuria. MUSCULOSKELETAL: The patient denies any muscle aches or pains. NEUROLOGIC: The patient denies any history of strokes or seizures. He denies any weakness. PSYCHIATRIC: He denies any history of depression or anxiety. HEMATOLOGIC/ONCOLOGIC: The patient reports a history of pancytopenia and anemia secondary to end stage renal disease. ENDOCRINE: The patient has a history of secondary hyperparathyroidism. All other review of systems is negative. CURRENT MEDICATIONS: The patient is currently on: - Zosyn 3.375 grams IV every 6 hours - vancomycin 1 gram IV with hemodialysis - Tylenol as needed - albuterol as needed - amlodipine 5 mg by mouth daily - DuoNeb every 4 hours - Zetia 10 mg by mouth daily - Uloric 40 mg by mouth daily - isosorbide 30 mg by mouth daily - levothyroxine 25 mcg by mouth daily - Solu-Medrol 60 mg IV twice a day - metoprolol 100 mg by mouth twice a day - morphine 2 mg IV every 2 hours as needed - Zofran 4 mg IV every 4 hours as needed for nausea - Percocet one tablet every 4 hours as needed for moderate pain - Renvela 800 mg by mouth with meals - Flomax 0.4 mg by mouth daily - vitamin D PHYSICAL EXAMINATION: GENERAL: The patient is awake, alert, oriented times three. Sitting in bed in moderate pain at this time. He reports that the morphine is working now. VITAL SIGNS: Temperature 98 degrees Fahrenheit. Blood pressure is 130/69, pulse is 77, respiratory rate of 16, saturating 95% on room air. HEAD AND NECK EXAM: Extraocular muscles intact. Pupils are equal, round and reactive to light. Mucous membranes are moist. NECK: Supple. There is no jugular venous distention (JVD). CARDIOVASCULAR: S1, S2. Regular rate. No murmur, rub or gallop. RESPIRATORY: The patient has decreased breath sounds and some crepitations on the right base. There are no rhonchi. ABDOMEN: Soft. Positive bowel sounds. Nontender. No ascites. No organomegaly. EXTREMITIES: No clubbing or cyanosis. Normal range of movement of all extremities. NEUROLOGIC: No focal neurological deficits. Power is 5/5 in all extremities. PSYCHIATRIC: Normal mood and affect. AV ACCESS: The patient has a left upper arm AV fistula with positive thrill and bruit. LABORATORY REVIEW: Complete blood count (CBC) showed a WBC of 11.4, hemoglobin 11.2, platelets 81. Basic metabolic panel (BMP) showed sodium 142, potassium 4.0, chloride 103, bicarbonate 27, BUN 54, creatinine 7.6, calcium is 8.1. Microbiology: Blood cultures are pending. Influenza A is negative. IMAGING: Chest x-ray done in the emergency room showed infrahilar patchy infiltrate on the right side. The patient had a CT angiogram of the chest and abdomen, official report is still pending, but as per preliminary report reported to me by the primary team, the patient has pneumonia on the right side and he has an endovascular leak as well. ASSESSMENT: 80-year-old male with a past medical history of end stage renal disease on hemodialysis every Friday, , Friday, history of thoracic and abdominal aortic repair in the past, admitted this time with healthcare associated pneumonia and endovascular leakage in the aortic graft. PLAN: 1. End stage renal disease on hemodialysis. The patient is being dialyzed at this time in the dialysis center. We are going to dialyze him for 3-1/2 hours with a 3K bath. I am not going to remove a lot of fluid in this patient, who is sick and has pneumonia. Ultrafiltration will be only 1 liter today. 2. Healthcare-associated pneumonia. The patient has already been started on vancomycin and Zosyn by the primary team. 3. Endovascular leak in the aortic graft. Primary team is actively trying to get a bed for the patient in [place] once a vascular surgeon accepts the patient. 4. Hypertension. Blood pressure is acceptable at this time. Continue current dose of antihypertensive medications. 5. Chronic kidney disease, mineral bone disease. Continue current dose of Renvela 800 mg by mouth three times a day with meals. 6. History of gout secondary to end stage renal disease. Continue current dose of Uloric 40 mg by mouth daily. 7. 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 The patient's hemoglobin is above 11 at this time. I will not give him a dose of Aranesp today. Thank you for involving us in the care of this patient. We shall be happy to follow the patient along with you tomorrow morning. Plan of care was discussed with the hospitalist team, Dr. Austin Alegre. I also informed the patient about the preliminary CAT scan results and possible need to transfer the patient to a higher level of care in [place]. We shall keep on dialyzing the patient at this time. As soon as a bed is available in [place], the patient will be transferred.
[2016-09-07] MEDS ORDERED: methylPREDNISolone INJ 125 MG/2 ML VIAL (J2930) IV SCH (21:00)
--- NOTE | 2016-09-08 06:26 | ECGEPIP ---
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
[2016-09-08] MEDS ORDERED: IPRATROPIUM 0.5MG/ALBUTEROL 2.5MG INH SOL UD 3ML (DUONEB)(J7620) As Ordered ONE (06:48)
--- NOTE | 2016-09-08 07:15 | REP ---
CT THORACIC SPINE WITHOUT CONTRAST: 09/07/2016. Comparison: Bone windows from CT angiogram chest 02/17/2016. Clinical history: Intractable thoracic pain. Findings: The patient has had a CT angiogram of the chest dedicated thoracic reconstructions are provided. There is discogenic endplate change at C5-6 with posterior osteophytic ridging. I do not see any acute compression deformities from the thoracic vertebral levels. There is minor endplate spurs at multiple levels of the thoracic spine. Mild thoracic kyphosis is seen. I do not see definite central canal stenosis. Posterior rib articulations and foramina were intact. The spinous processes, lamina, facets, and transverse processes were all unremarkable. Right pleural effusion and compressive atelectatic changes in the right base. The aortic stent graft lower thoracic aorta into the upper abdominal aorta is noted. Posterior and just to the right aspect of the stent graft is a curvilinear 2.5 x 1.2 x 2.5 cm hyperdense collection representing an endoleak which was not present at that same location on the 02/17/2016 study. I do not see dissection. This is just below the area where the very large aneurysm projects which is otherwise unchanged, I did not see leak into it. Please see the CT angiogram report this date for further detail . Impression: 1. There is no acute compression deformity or destructive lesion in the thoracic spine. No central canal stenosis or foraminal encroachment present. 2. The aortic stent graft from the lower thoracic to upper abdominal aorta shows an endoleak at about the T11 level. This measures 2.5 x 1.2 x 2.5 cm and is immediately adjacent to the posterior right aspect of that aortic stent graft and was not present on the previous CT angio in January 2016. Please see the CT angio report this date. Signed by Caesar Zelaya MD 09/08/2016 07:28 A
--- NOTE | 2016-09-08 07:18 | REP ---
CT LUMBAR SPINE WITHOUT CONTRAST: 09/07/2016. Axial thin-section images from the T11 through L5-S1 were performed. Coronal and sagittal bone window reconstructions were provided. Clinical history intractable back pain. Fur Finisher Tailor image shows the distal thoracic proximal abdominal aortic stent graft. Findings: The disc space heights of the lumbar spine are intact. There is mild superior endplate depression of the right lateral aspect of L1 as noted on a previous CT angio chest 02/17/2016, unchanged. There is no acute compression deformity. Degenerative disc changes are noted at multiple levels with posterior osteophytes at L4-5 and disc bulges at L4-5 and L5-S1, but no significant central canal stenosis. There is an aortic stent graft in the proximal aspect of the aorta which terminates at the superior aspect of L1. Please see the CT angiogram chest and abdomen this date for more detail. No paraspinal hematoma or retroperitoneal leak noted. There are degenerative changes in the facets of the lower lumbar spine. Vacuum phenomenon at L5- S1. SI joints grossly intact. Atherosclerotic calcifications and ectasia of the iliacs. Impression: 1. Degenerative disc changes at L3-4 through L5-S1 with old minor superior endplate depression right lateral L1, stable. No acute compression fracture, spinal or foraminal stenosis. Please see description of the stent graft on the CT angiogram this date. Signed by Caesar Zelaya MD 09/08/2016 07:38 A
--- NOTE | 2016-09-08 07:47 | REP ---
CT ANGIOGRAM ABDOMEN WITH CONTRAST: 09/07/2016. Clinical history: Intractable back pain as endovascular stent graft of the distal thoracic and upper abdominal aorta. Helical scanning through the abdomen and pelvis after bolus of 100 mL of Isovue 370. Coronal and sagittal reconstructions to evaluate the thoracic and abdominal aorta in this field of view. Findings: There is a right pleural effusion of moderate size. Consolidative atelectatic changes in the right lower lobe with compressive atelectasis in the right lower and middle lobes. There is also a left base subsegmental atelectatic or change peripherally versus lesion in the left lower lobe. No left effusion, calcified pleural plaque in the paraspinal region of the posterior medial basal segment of both lower lungs. The heart is mildly enlarged. There is no pericardial thickening or effusion. Stent graft is seen from the uppermost image in the lower chest to the L1 level. There is patency of the lumen without thrombus however at the T11 level there is a 2.5 x 1.2 x 2.5 cm endoleak along the posterior and right lateral aspect of the stent graft and this is new compared to the CT angiogram in 02/17/2016. The large aneurysm adjacent is otherwise remained clotted and unchanged. This is the only site of Endograft leak. That portion of liver included is unremarkable. The gallbladder was without calcified stone or masses. There is no splenomegaly hepatomegaly, focal hepatic or splenic lesion. There is no retroperitoneal hematoma. Adrenal gland show somewhat nodular appearance, left greater than right suggesting adrenal adenomas and hyperplasia. No hiatal hernia. 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 There is a gradual caliber change as seen on images 72-67. The small bowel loops are unremarkable. Distally small bowel loops and colon grossly intact. There are a few scattered diverticula in the colon. In the pelvis inguinal canals are slightly distended with omental fat. There are surgical clips in the right inguinal region vascular clips are also noted at the periaortic region below the stent graft. Bladder is not enlarged. There is no stone or mass. Prostate indents the bladder base diverticulosis distal left colon and sigmoid noted without diverticulitis, colitis, stricture or mass. Post surgical changes in both inguinal regions. Impression: 1. Aortic stent graft from the lower thoracic through upper abdominal aorta but now with an endoleak at the level of T11 posterior toward the right, new since the January 2016 study. The graft has patent lumen throughout. There are no other leaks. The large thrombosed component of the aneurysm at the thoracolumbar junction is otherwise unchanged with no other new finding. No retroperitoneal hematoma. 2. Dilated bowel loops and central upper abdomen that appear to be colon.3. Moderate sized right pleural effusion with compressive atelectasis or consolidative atelectasis, infiltrate right base. Soft tissue lesion or atelectasis left base. Please see CT chest report. Signed by Caesar Zelaya MD 09/08/2016 06:51 P
--- NOTE | 2016-09-08 07:54 | REP ---
CT ANGIOGRAM OF THE CHEST: 09/07/2016. Clinical history: Intractable back pain. Known thoracic and abdominal aortic stent graft for aneurysm. Comparison: CT angiogram 02/17/2016. Portable chest 09/07/2016. Technique: Bolus of 100 mL of Isovue 370 with scanning through the chest with our CT angiogram protocol. Findings: Small to moderate right pleural effusion as suggested on chest x-ray with compressive/consolidative atelectasis or infiltrate right lower lobe and some in the right middle lobe. There is compressive atelectatic change in the left base as well in the left lower lobe near the fissure anteriorly. These areas could certainly hide small nodules or lesions. I do not see a left effusion. There is some minor calcified pleural plaques evident paraspinal regions. Mid and upper lung zones were clear. There is some loculated fluid in the upper lung zone separate from the lower lung zone on that right side. Heart size is enlarged. There is left atrial and ventricular enlargement. No pericardial thickening or effusion. The main, right, left and lobar pulmonary arteries are without filling defects. There is no pathologic sized mediastinal or hilar adenopathy. No supraclavicular mass. Atherosclerotic calcifications are noted in the ascending and/or arch portion of the aorta which are not dilated. However, the descending thoracic aorta shows a stent graft from its mid course into the upper abdomen to the level of upper aspect L1. There is contrast through the lumen of the stent graft. However, at the level of T11 posteriorly and towards the right is a 2.5 x 1.2 x 2.5 cm curvilinear contrast collection representing an endoleak. This is new compared to the 02/17/2016 prior. The remainder of the large aneurysm at this level does not show any a change nor further projection of the endoleak into that thrombosed aneurysmal segment. The distal end of the Endograft was intact. The upper abdominal aorta without thrombus or aneurysm below that graft. Adrenal glands show nodular appearance. Origins of the great vessels off the arch are unchanged. There were no other findings. Please see the CT thoracic spine this date for discussion of the bony structures. Impression: 1. Descending thoracic and upper abdominal aortic aneurysm with a Endograft stent from the mid descending thoracic aorta to the upper abdominal aorta at the level of superior endplate of L1. An endoleak is now present at about the T11 level posteriorly and towards the right as a new finding compared to the January 2016 study. A phone call pending to the requesting physician about this finding. 2. Right effusions lower and upper chest separate with consolidative compressive atelectasis or infiltrate right lower lobe and some right middle lobe. This is a new finding compared to the previous study which had extensive consolidation in the right lower lobe. The mass-like density at the base on the previous chest CT cannot be clearly defined on this study and may have been consolidation. Due to extensive consolidation and effusion, a lesion could still be hidden by the these findings. There is some minor atelectatic change in the left base. Signed by Caesar Zelaya MD 09/08/2016 06:52 P
[2016-09-08] MEDS ORDERED: MOXIFLOXACIN HCL 400 MG in APPROPRIATE DILUENT 1 EA IV SCH (09:00)
[2016-09-08] MEDS ORDERED: CHECK TO SEE IF PATIENT IS RECEIVING DIALYSIS TODAY AND REFER TO THE VANCOMYCIN ORDER XX SCH (16:00)
[2016-09-08] MEDS ORDERED: VANCOMYCIN HCL 1,000 MG, VIAL MATE ADAPTER 1 EACH in D5W 250 ML IV SCH (16:45)
--- NOTE | 2016-09-09 20:26 | EDDOCDS ---
Physician Documentation [facility] Name: Donovan Gibson Age: 80 yrs Sex: Male : 1935 Arrival Date: 09/07/2016 Time: 09:44 Bed 2 Private MD: Luca Bernabe P Disposition: 09/07/16 12:27 Hospitalization ordered by Austin Alegre for Inpatient Admission. Preliminary diagnosis are Pneumonia, unspecified organism, Acute respiratory failure with hypoxia, Acute pain due to trauma - upper back . - Bed requested for Admit. - Status is Inpatient Admission. sls1 - Condition is Stable. - Problem is new. - Symptoms are unchanged. Historical: - Allergies: Ambien; - Home Meds: 1. tamsulosin 0.4 mg oral cp24 1 cap once daily 2. Zetia 10 mg Oral tab 1 tab once daily 3. levothyroxine 25 mcg Oral tab 1 tab once daily 4. Isosorbide ER 30 mg daily 5. metoprolol tartrate 50 mg Oral tab 2 tabs 2 times per day 6. ibuprofen 800 mg Oral tab 1 tab 3 times per day as needed (Last dose: 09/07/2016 03:00) 7. Uloric 40 mg oral tab 1 tab once daily 8. isosorbide mononitrate 30 mg Oral Tb24 1 tab once daily 9. Kionex 15 gram/60 mL oral susp 60 mL once daily as needed 10. Renvela 800 mg oral tab 1 tab 3 times per day 11. amlodipine 5 mg Oral tab 1 tab once daily - PMHx: AAA; High Cholesterol; Hypertension; [place]; Renal Failure with Dialysis; Thyroid problem; - PSHx: Stents, Coronary; AV Fistula- Left arm; AAA Repair; - Social history: Smoking status: Patient states former smoker of tobacco. No barriers to communication noted, The patient speaks fluent Brazilian, Speaks appropriately for age. - Family history: Not pertinent. - : The pt / caregiver states he / she is not on anticoagulants. Home medication list is obtained from the patient. - Exposure Risk Screening:: None identified. Vital Signs: 09/07 09:47 BP 151 / 69; Pulse 77; Resp 22; Temp 97.4; Pulse Ox 95% on R/A; Weight 79.38 kg / 175 dem1 lbs (R); Height 5 ft. 7 in. (170.18 cm) (R); 10:24 BP 136 / 63 (auto/); jjr 10:25 Pulse 66 MON; Pulse Ox 97% ; jjr 11:04 BP 162 / 69 (auto/); jjr 11:06 Pulse 76 MON; Pulse Ox 94% ; jjr 11:24 BP 138 / 60 (auto/); jjr 11:24 Pulse 78 MON; Resp 20; Pulse Ox 94% on 3 lpm NC; jjr 11:44 BP 128 / 58 (auto/); jjr 11:44 Pulse 82 MON; Pulse Ox 94% ; jjr 12:04 BP 133 / 60 (auto/); jjr 12:04 Pulse 84 MON; Pulse Ox 90% ; jjr 12:44 BP 143 / 65 (auto/); jjr 12:44 Pulse 92 MON; Pulse Ox 96% ; jjr 13:04 BP 130 / 71 (auto/); jjr 13:04 Pulse 86 MON; Resp 20; Pulse Ox 96% on 3 lpm NC; jjr 15:08 Temp 96.9(O); jjr 18:48 BP 133 / 65; Pulse 110; Resp 36; Temp 98.5(TE); Pulse Ox 93% 5 lpm ; rn1 18:57 BP 133 / 65 (auto/); jjr 19:03 Pulse Ox 95% on 3 lpm NC; jjr 19:04 BP 144 / 67 (auto/); jjr 19:04 Pulse 111 MON; Pulse Ox 95% ; jjr 19:10 BP 154 / 65 (auto/); jjr 19:10 Pulse 117 MON; Resp 24; Pulse Ox 94% on 3 lpm NC; jjr 09:47 Body Mass Index 27.41 (79.38 kg, 170.18 cm) dem1 18:48 PT O2 stat ranges from 88 to 94 rn1 MDM: 10:10 ECG WITH READING ER PHYS+CARDIAG ordered. EDMS 10:24 IV Saline Lock ordered. ml 10:24 -Blood Culture (Adults Only), peripheral from different site, or from device/port/PICC ml etc. if present ordered. 10:24 Albuterol 5 mg Nebulizer once ordered. ml 10:24 Albuterol-Ipratropium 3 ml Inhalation once ordered. ml 10:24 Call Respiratory ordered. ml 10:25 Oxygen at 4L/Min NC or Home dosage ordered. ml 10:25 Ondansetron 4 mg IVP once ordered. ml 10:25 morphine 2 mg IVP once ordered. ml 10:25 CBC with Diff Ordered. EDMS 10:25 MED Profile Ordered. EDMS 10:25 CIP Ordered. EDMS 10:25 Troponin Ordered. EDMS 10:25 Liver Profile Ordered. EDMS 10:25 Lipase Ordered. EDMS 10:25 Amylase Ordered. EDMS 10:26 Call Respiratory complete. jrd 10:26 Chest, 1 View Ordered. EDMS 10:26 -Blood Culture (Adults Only), peripheral from different site, or from device/port/PICC deg etc. if present complete. 10:27 BLOOD CULTURES Ordered. EDMS 10:35 Financial registration complete. mm15 10:36 [facility] [place] Agreement was scanned into [employer] and attached to record. mm15 10:56 morphine 2 mg IVP every 15 minutes; Document pain score/vitals after each dose (Hold if ml SBP < 90mmHg) x3 ordered. 11:38 CBC with Diff Reviewed. ml 11:59 MED Profile Reviewed. ml 11:59 Liver Profile Reviewed. ml 11:59 CIP Reviewed. ml 11:59 Troponin Reviewed. ml 11:59 Lipase Reviewed. ml 11:59 Amylase Reviewed. ml 12:00 Obtain sample by nasopharyngeal swab ordered. ml 12:01 -Influenza A&B Rapid Antigen - Nose Ordered. EDMS 12:08 oxyCODONE-acetaminophen 5 mg-325 mg 1 tabs PO once ordered. ml 12:08 Cyclobenzaprine 10 mg PO once ordered. ml 12:21 cefTRIAXone 1 grams IVPB once over 30 mins; dilute in 50mL of NS or D5W ordered. ml 12:21 azithromycin 500 mg IVPB once over 1 hrs; dilute in 250mL of D5W or NS ordered. ml 12:22 Call Respiratory ordered. ml 12:23 Call Respiratory complete. deg 12:23 BED REQUEST+ADM ordered. EDMS 12:23 -Arterial Blood Gas Ordered. EDMS 12:33 BLOOD CULTURES Ordered. EDMS 13:02 Ondansetron 4 mg IVP once ordered. ml 13:06 CT ANGIO CHEST Ordered. EDMS 13:06 CT ANGIO ABDOMEN Ordered. EDMS 13:06 CT Spine, lumbar w/o contrast Ordered. EDMS 13:07 CT Spine,thoracic w/o contrast Ordered. EDMS 13:20 LEGIONELLA ANTIGEN URINE Ordered. EDMS 13:20 URINE STREP PNEUMONIAE ANTIGEN Ordered. EDMS 13:21 INFLUENZA A&B RAPID ANTIGEN Ordered. EDMS 13:21 SPUTUM CULTURE AND GRAM STAIN Ordered. EDMS 13:22 Admission / Observation Status ordered. EDMS 13:23 CONSISTENT CARBOHYDRATES ordered. EDMS 13:29 -Arterial Blood Gas Reviewed. ml 13:29 -Influenza A&B Rapid Antigen - Nose Reviewed. ml 18:41 Type and Cross, Packed Cells Ordered. EDMS 18:41 TYPE & SCREEN Ordered. EDMS 18:53 fentaNYL (PF) 25 mcg IVP once ordered. jjr 18:55 Transfuse PRBC's 2 units, ensure PRBCs ordered in lab ordered. dy 19:01 fentaNYL (PF) 25 mcg IVP once ordered. jjr 19:02 Labetalol 10 mg IVP at bolus once over 2 mins ordered. jjr 19:10 CBC Ordered. EDMS 19:10 MED Profile Ordered. EDMS 19:13 fentaNYL (PF) 25 mcg IVP once ordered. jjr 19:13 fentaNYL (PF) 25 mcg IVP once ordered. jjr 21:54 T-Sheet-- Draft Copy was scanned into W[employer] and attached to record. klr 02/ 10:22 ECG/EKG was scanned into [employer] and attached to record. gb 10:23 Radiology Report was scanned into W[employer]able and attached to record. gb Administered Medications: 09/07 10:40 Drug: Albuterol 5 mg [albuterol sulfate 2.5 mg/0.5 mL solution for nebulization (1 mL)] [facility] Route: Nebulizer; 10:47 Follow up: Response: Nebulizer completed km6 10:40 Drug: Albuterol-Ipratropium 3 ml [ipratropium-albuterol 0.5 mg-3 mg(2.5 mg base)/3 mL [facility] nebulization soln (3 mL)] Route: Inhalation; 10:47 Follow up: Response: Nebulizer completed km6 10:40 Drug: Ondansetron 4 mg [ondansetron HCl 2 mg/mL intravenous solution (2 mL)] Route: jjr IVP; Site: right hand; 10:40 Drug: morphine 2 mg [morphine 2 mg/mL intravenous cartridge (1 mL)] Route: IVP; Site: jr right hand; 11:17 Drug: morphine 2 mg [morphine 2 mg/mL intravenous cartridge (1 mL)] Route: IVP; Site: dy right hand; 11:38 Drug: morphine 2 mg [morphine 2 mg/mL intravenous cartridge (1 mL)] Route: IVP; Site: jjr right hand; 12:18 Drug: oxyCODONE-acetaminophen 5 mg-325 mg 1 tabs Route: PO; jjr 12:18 Drug: Cyclobenzaprine 10 mg [cyclobenzaprine 10 mg tablet (1 tabs)] Route: PO; jjr 12:41 Drug: cefTRIAXone 1 grams [ceftriaxone 1 gram solution for injection] Route: IVPB; jjr Infused Over: 30 mins; Site: right hand; Delivery: Syringe pump; 13:09 Drug: azithromycin 500 mg [azithromycin 500 mg intravenous solution] Route: IVPB; jjr Infused Over: 1 hrs; Site: right hand; 14:13 Follow up: IV Status: Completed infusion; IV Intake: 250ml jjr 13:20 Drug: Ondansetron 4 mg [ondansetron HCl 2 mg/mL intravenous solution (2 mL)] Route: jjr IVP; Site: right hand; 15:06 Drug: morphine 2 mg [morphine 2 mg/mL intravenous cartridge (1 mL)] Route: IVP; Site: jr right hand; 18:50 Drug: Labetalol 10 mg [labetalol 5 mg/mL intravenous solution (2 mL)] {Note: verbal Dr jameson Ahbed at bedside given by Jacquie RESENDIZ} Route: IVP; Rate: bolus; Infused Over: 2 mins; Site: right antecubital; 18:53 Drug: fentaNYL (PF) 25 mcg [fentanyl (PF) 50 mcg/mL injection solution (0.5 mL)] Route: jjr IVP; Site: right antecubital; 19:02 Drug: fentaNYL (PF) 25 mcg [fentanyl (PF) 50 mcg/mL injection solution (0.5 mL)] Route: jjr IVP; Site: right hand; 19:08 Drug: fentaNYL (PF) 25 mcg [fentanyl (PF) 50 mcg/mL injection solution (0.5 mL)] Route: jjr IVP; Site: right hand; 19:13 Drug: fentaNYL (PF) 25 mcg [fentanyl (PF) 50 mcg/mL injection solution (0.5 mL)] Route: jjr IVP; Site: right hand; Signatures: Dispatcher Med[employer] EDMS Chester Elkins MD MD ml Murray, Benita, Track Laborer Unit deg [place] HC, Magalis, RN RN daPadma Watt, Reg Reg gb Chuck Garcia, RN RN Maxime Sarmiento, RN RN mlb1 Queta Richards, RN RN jjChina Fry RN RN sls1 Shaka Reynoso mm15 aLzaro Kraus, RUG HOOKER RUG HOOKER Queenie Vaca Kimberly [facility] The chart was reviewed and I authenticate all verbal orders and agree with the evaluation and treatment provided.Corrections: (The following items were deleted from the chart) 12:33 10:26 -BLOOD CULTURES+CATHERINE ordered. EDMS EDMS 19:14 19:06 COMPLETE BLOOD COUNT ordered. EDMS EDMS Attachments: 10:36 [facility] Payment Agreement mm15 21:54 T-Sheet-- Draft Copy [facility] 09/09 10:22 ECG/EKG gb Chart Complete MTDD
--- NOTE | 2016-09-09 20:26 | EDDOCDS ---
Physician Documentation [facility] Name: Donovan Gibson Age: 80 yrs Sex: Male : 1935 Arrival Date: 09/07/2016 Time: 09:44 Bed 2 Private MD: Luca Bernabe P Disposition: 09/07/16 12:27 Hospitalization ordered by Austin Alegre for Inpatient Admission. Preliminary diagnosis are Pneumonia, unspecified organism, Acute respiratory failure with hypoxia, Acute pain due to trauma - upper back . - Bed requested for Admit. - Status is Inpatient Admission. sls1 - Condition is Stable. - Problem is new. - Symptoms are unchanged. Historical: - Allergies: Ambien; - Home Meds: 1. tamsulosin 0.4 mg oral cp24 1 cap once daily 2. Zetia 10 mg Oral tab 1 tab once daily 3. levothyroxine 25 mcg Oral tab 1 tab once daily 4. Isosorbide ER 30 mg daily 5. metoprolol tartrate 50 mg Oral tab 2 tabs 2 times per day 6. ibuprofen 800 mg Oral tab 1 tab 3 times per day as needed (Last dose: 09/07/2016 03:00) 7. Uloric 40 mg oral tab 1 tab once daily 8. isosorbide mononitrate 30 mg Oral Tb24 1 tab once daily 9. Kionex 15 gram/60 mL oral susp 60 mL once daily as needed 10. Renvela 800 mg oral tab 1 tab 3 times per day 11. amlodipine 5 mg Oral tab 1 tab once daily - PMHx: AAA; High Cholesterol; Hypertension; [place]; Renal Failure with Dialysis; Thyroid problem; - PSHx: Stents, Coronary; AV Fistula- Left arm; AAA Repair; - Social history: Smoking status: Patient states former smoker of tobacco. No barriers to communication noted, The patient speaks fluent Palauan, Speaks appropriately for age. - Family history: Not pertinent. - : The pt / caregiver states he / she is not on anticoagulants. Home medication list is obtained from the patient. - Exposure Risk Screening:: None identified. Vital Signs: 09/07 09:47 BP 151 / 69; Pulse 77; Resp 22; Temp 97.4; Pulse Ox 95% on R/A; Weight 79.38 kg / 175 dem1 lbs (R); Height 5 ft. 7 in. (170.18 cm) (R); 10:24 BP 136 / 63 (auto/); jjr 10:25 Pulse 66 MON; Pulse Ox 97% ; jjr 11:04 BP 162 / 69 (auto/); jjr 11:06 Pulse 76 MON; Pulse Ox 94% ; jjr 11:24 BP 138 / 60 (auto/); jjr 11:24 Pulse 78 MON; Resp 20; Pulse Ox 94% on 3 lpm NC; jjr 11:44 BP 128 / 58 (auto/); jjr 11:44 Pulse 82 MON; Pulse Ox 94% ; jjr 12:04 BP 133 / 60 (auto/); jjr 12:04 Pulse 84 MON; Pulse Ox 90% ; jjr 12:44 BP 143 / 65 (auto/); jjr 12:44 Pulse 92 MON; Pulse Ox 96% ; jjr 13:04 BP 130 / 71 (auto/); jjr 13:04 Pulse 86 MON; Resp 20; Pulse Ox 96% on 3 lpm NC; jjr 15:08 Temp 96.9(O); jjr 18:48 BP 133 / 65; Pulse 110; Resp 36; Temp 98.5(TE); Pulse Ox 93% 5 lpm ; rn1 18:57 BP 133 / 65 (auto/); jjr 19:03 Pulse Ox 95% on 3 lpm NC; jjr 19:04 BP 144 / 67 (auto/); jjr 19:04 Pulse 111 MON; Pulse Ox 95% ; jjr 19:10 BP 154 / 65 (auto/); jjr 19:10 Pulse 117 MON; Resp 24; Pulse Ox 94% on 3 lpm NC; jjr 09:47 Body Mass Index 27.41 (79.38 kg, 170.18 cm) dem1 18:48 PT O2 stat ranges from 88 to 94 rn1 MDM: 10:10 ECG WITH READING ER PHYS+CARDIAG ordered. EDMS 10:24 IV Saline Lock ordered. ml 10:24 -Blood Culture (Adults Only), peripheral from different site, or from device/port/PICC ml etc. if present ordered. 10:24 Albuterol 5 mg Nebulizer once ordered. ml 10:24 Albuterol-Ipratropium 3 ml Inhalation once ordered. ml 10:24 Call Respiratory ordered. ml 10:25 Oxygen at 4L/Min NC or Home dosage ordered. ml 10:25 Ondansetron 4 mg IVP once ordered. ml 10:25 morphine 2 mg IVP once ordered. ml 10:25 CBC with Diff Ordered. EDMS 10:25 MED Profile Ordered. EDMS 10:25 CIP Ordered. EDMS 10:25 Troponin Ordered. EDMS 10:25 Liver Profile Ordered. EDMS 10:25 Lipase Ordered. EDMS 10:25 Amylase Ordered. EDMS 10:26 Call Respiratory complete. jrd 10:26 Chest, 1 View Ordered. EDMS 10:26 -Blood Culture (Adults Only), peripheral from different site, or from device/port/PICC deg etc. if present complete. 10:27 BLOOD CULTURES Ordered. EDMS 10:35 Financial registration complete. mm15 10:36 [facility] Payment Agreement was scanned into [employer] and attached to record. mm15 10:56 morphine 2 mg IVP every 15 minutes; Document pain score/vitals after each dose (Hold if ml SBP < 90mmHg) x3 ordered. 11:38 CBC with Diff Reviewed. ml 11:59 MED Profile Reviewed. ml 11:59 Liver Profile Reviewed. ml 11:59 CIP Reviewed. ml 11:59 Troponin Reviewed. ml 11:59 Lipase Reviewed. ml 11:59 Amylase Reviewed. ml 12:00 Obtain sample by nasopharyngeal swab ordered. ml 12:01 -Influenza A&B Rapid Antigen - Nose Ordered. EDMS 12:08 oxyCODONE-acetaminophen 5 mg-325 mg 1 tabs PO once ordered. ml 12:08 Cyclobenzaprine 10 mg PO once ordered. ml 12:21 cefTRIAXone 1 grams IVPB once over 30 mins; dilute in 50mL of NS or D5W ordered. ml 12:21 azithromycin 500 mg IVPB once over 1 hrs; dilute in 250mL of D5W or NS ordered. ml 12:22 Call Respiratory ordered. ml 12:23 Call Respiratory complete. deg 12:23 BED REQUEST+ADM ordered. EDMS 12:23 -Arterial Blood Gas Ordered. EDMS 12:33 BLOOD CULTURES Ordered. EDMS 13:02 Ondansetron 4 mg IVP once ordered. ml 13:06 CT ANGIO CHEST Ordered. EDMS 13:06 CT ANGIO ABDOMEN Ordered. EDMS 13:06 CT Spine, lumbar w/o contrast Ordered. EDMS 13:07 CT Spine,thoracic w/o contrast Ordered. EDMS 13:20 LEGIONELLA ANTIGEN URINE Ordered. EDMS 13:20 URINE STREP PNEUMONIAE ANTIGEN Ordered. EDMS 13:21 INFLUENZA A&B RAPID ANTIGEN Ordered. EDMS 13:21 SPUTUM CULTURE AND GRAM STAIN Ordered. EDMS 13:22 Admission / Observation Status ordered. EDMS 13:23 CONSISTENT CARBOHYDRATES ordered. EDMS 13:29 -Arterial Blood Gas Reviewed. ml 13:29 -Influenza A&B Rapid Antigen - Nose Reviewed. ml 18:41 Type and Cross, Packed Cells Ordered. EDMS 18:41 TYPE & SCREEN Ordered. EDMS 18:53 fentaNYL (PF) 25 mcg IVP once ordered. jjr 18:55 Transfuse PRBC's 2 units, ensure PRBCs ordered in lab ordered. dy 19:01 fentaNYL (PF) 25 mcg IVP once ordered. jjr 19:02 Labetalol 10 mg IVP at bolus once over 2 mins ordered. jjr 19:10 CBC Ordered. EDMS 19:10 MED Profile Ordered. EDMS 19:13 fentaNYL (PF) 25 mcg IVP once ordered. jjr 19:13 fentaNYL (PF) 25 mcg IVP once ordered. jjr 21:54 T-Sheet-- Draft Copy was scanned into [employer] and attached to record. klr 02/ 10:22 ECG/EKG was scanned into [employer] and attached to record. gb 10:23 Radiology Report was scanned into [employer] and attached to record. gb Administered Medications: 09/07 10:40 Drug: Albuterol 5 mg [albuterol sulfate 2.5 mg/0.5 mL solution for nebulization (1 mL)] [facility] Route: Nebulizer; 10:47 Follow up: Response: Nebulizer completed km6 10:40 Drug: Albuterol-Ipratropium 3 ml [ipratropium-albuterol 0.5 mg-3 mg(2.5 mg base)/3 mL [facility] nebulization soln (3 mL)] Route: Inhalation; 10:47 Follow up: Response: Nebulizer completed km6 10:40 Drug: Ondansetron 4 mg [ondansetron HCl 2 mg/mL intravenous solution (2 mL)] Route: jjr IVP; Site: right hand; 10:40 Drug: morphine 2 mg [morphine 2 mg/mL intravenous cartridge (1 mL)] Route: IVP; Site: jr right hand; 11:17 Drug: morphine 2 mg [morphine 2 mg/mL intravenous cartridge (1 mL)] Route: IVP; Site: dy right hand; 11:38 Drug: morphine 2 mg [morphine 2 mg/mL intravenous cartridge (1 mL)] Route: IVP; Site: jjr right hand; 12:18 Drug: oxyCODONE-acetaminophen 5 mg-325 mg 1 tabs Route: PO; jjr 12:18 Drug: Cyclobenzaprine 10 mg [cyclobenzaprine 10 mg tablet (1 tabs)] Route: PO; jjr 12:41 Drug: cefTRIAXone 1 grams [ceftriaxone 1 gram solution for injection] Route: IVPB; jjr Infused Over: 30 mins; Site: right hand; Delivery: Syringe pump; 13:09 Drug: azithromycin 500 mg [azithromycin 500 mg intravenous solution] Route: IVPB; jjr Infused Over: 1 hrs; Site: right hand; 14:13 Follow up: IV Status: Completed infusion; IV Intake: 250ml jjr 13:20 Drug: Ondansetron 4 mg [ondansetron HCl 2 mg/mL intravenous solution (2 mL)] Route: jjr IVP; Site: right hand; 15:06 Drug: morphine 2 mg [morphine 2 mg/mL intravenous cartridge (1 mL)] Route: IVP; Site: jr right hand; 18:50 Drug: Labetalol 10 mg [labetalol 5 mg/mL intravenous solution (2 mL)] {Note: verbal Dr jameson Ahbed at bedside given by Jacquie RESENDIZ} Route: IVP; Rate: bolus; Infused Over: 2 mins; Site: right antecubital; 18:53 Drug: fentaNYL (PF) 25 mcg [fentanyl (PF) 50 mcg/mL injection solution (0.5 mL)] Route: jjr IVP; Site: right antecubital; 19:02 Drug: fentaNYL (PF) 25 mcg [fentanyl (PF) 50 mcg/mL injection solution (0.5 mL)] Route: jjr IVP; Site: right hand; 19:08 Drug: fentaNYL (PF) 25 mcg [fentanyl (PF) 50 mcg/mL injection solution (0.5 mL)] Route: jjr IVP; Site: right hand; 19:13 Drug: fentaNYL (PF) 25 mcg [fentanyl (PF) 50 mcg/mL injection solution (0.5 mL)] Route: jjr IVP; Site: right hand; Signatures: Dispatcher Med[employer] EDMS Chester Elkins MD MD ml Murray, Benita, Machine Ii Cutter Unit deg [place] HC, Magalis, RN RN daPadma Watt, Reg Reg gb Chuck Garcia, RN RN Maxime Sarmiento, RN RN mlb1 Queta Richards, RN RN jjChina Fry RN RN sls1 Shaka Reynoso mm15 Lazaro Kraus, PASTA MAKER PASTA MAKER Queenie Vaca Kimberly [facility] The chart was reviewed and I authenticate all verbal orders and agree with the evaluation and treatment provided.Corrections: (The following items were deleted from the chart) 12:33 10:26 -BLOOD CULTURES+CATHERINE ordered. EDMS EDMS 19:14 19:06 COMPLETE BLOOD COUNT ordered. EDMS EDMS Attachments: 10:36 [facility] Payment Agreement mm15 21:54 T-Sheet-- Draft Copy [facility] 09/09 10:22 ECG/EKG gb Chart Complete MTDD
--- NOTE | 2016-09-09 20:26 | EDDOCDS ---
Nurse's Notes [facility] Name: Donovan Gibson Age: 80 yrs Sex: Male : 1935 Arrival Date: 09/07/2016 Time: 09:44 Bed 2 Private MD: Luca Bernabe P Diagnosis: Pneumonia, unspecified organism;Acute respiratory failure with hypoxia;Acute pain due to trauma-upper back Presentation: 09/07 09:50 Presenting complaint: Patient states: Right anterior and posterior chest wall pain mlb1 radiating to left scapular area began . Adult Sepsis Screening: The patient does not have new or worsening altered mentation. Patient's respiratory rate is less than 22. Systolic blood pressure is greater than 100. Patient has a qSOFA score of 0- Negative Sepsis Screen. Suicide/Homicide risk assessment- the patient denies having any suicidal and/or homicidal ideations and does not present with any other emotional, behavioral or mental health complaints. Status: Patient is not a environmental services aide or dependent. Transition of care: patient was not received from another setting of care. 09:50 Acuity: MARLENA Level 3 mlb1 09:50 Method Of Arrival: Walkin/Carried/Asstd mlb1 Triage Assessment: 09:57 General: Appears distressed, Behavior is anxious, cooperative. Pain: Location: right mlb1 lateral anterior chest and right lateral posterior chest Pain currently is 8 out of 10 on a pain scale. Pain radiates to right scapular area. Historical: - Allergies: Ambien; - Home Meds: 1. tamsulosin 0.4 mg oral cp24 1 cap once daily 2. Zetia 10 mg Oral tab 1 tab once daily 3. levothyroxine 25 mcg Oral tab 1 tab once daily 4. Isosorbide ER 30 mg daily 5. metoprolol tartrate 50 mg Oral tab 2 tabs 2 times per day 6. ibuprofen 800 mg Oral tab 1 tab 3 times per day as needed (Last dose: 09/07/2016 03:00) 7. Uloric 40 mg oral tab 1 tab once daily 8. isosorbide mononitrate 30 mg Oral Tb24 1 tab once daily 9. Kionex 15 gram/60 mL oral susp 60 mL once daily as needed 10. Renvela 800 mg oral tab 1 tab 3 times per day 11. amlodipine 5 mg Oral tab 1 tab once daily - PMHx: AAA; High Cholesterol; Hypertension; [place]; Renal Failure with Dialysis; Thyroid problem; - PSHx: Stents, Coronary; AV Fistula- Left arm; AAA Repair; - Social history: Smoking status: Patient states former smoker of tobacco. No barriers to communication noted, The patient speaks fluent Bahamian, Speaks appropriately for age. - Family history: Not pertinent. - : The pt / caregiver states he / she is not on anticoagulants. Home medication list is obtained from the patient. - Exposure Risk Screening:: None identified. Screenin:57 Fall Risk. jjr 11:28 Screening information is obtained from the patient. Fall risk: At risk due to age, The jjr following interventions are performed due to a positive Fall Risk Screen: added to special handling. Assistance ADL's: Requires assistance with meal preparation, this assistance is provided by family members, housework, assistance is provided by family members. Abuse/DV Screen: The patient / caregiver reports he/she is: not in a situation that causes fear, pain or injury. Nutritional screening: No deficits noted. Advance Directives: Currently, there is a health care proxy, Destini Gibson . There is no active DNR order. home support is adequate. Assessment: 10:57 General: Appears uncomfortable, well nourished, well groomed, Behavior is appropriate jjr for age. Pain: Location: right trapezius, thoracic area and anterior aspect of right shoulder. Pain: Aggravated by increased activity. Neurological: No deficits noted. Respiratory: Airway is patent Respiratory effort is even, labored, Respiratory pattern is regular, congested cough. Derm: Skin is pink, warm & dry. 11:25 Respiratory: Breath sounds are diminished bilaterally. jjr 12:10 General: Appears in no apparent distress, Behavior is appropriate for age, sitting in jjr chair at bedside continues to report ache to thoracic spine abdomen and right shoulder. Neurological: No deficits noted. Cardiovascular: Rhythm is sinus rhythm. Respiratory: Reports pain with movement pain with respiration. Derm: No deficits noted. 13:10 General: Appears in no apparent distress, no change in pain to back right shoulder and jjr tender to palpation to right lateral abdomen. Cardiovascular: Rhythm is sinus rhythm. Respiratory: Airway is patent Respiratory effort is even, unlabored, Respiratory pattern is regular. Derm: No deficits noted. (+) thrill to left biceps AV fistula. 14:29 General: Appears in no apparent distress, reports some relief of back right shoulder jjr and right lateral abdominal pain, family attentive at bedside. Neurological: No deficits noted. Cardiovascular: Rhythm is sinus rhythm. Respiratory: Airway is patent Respiratory effort is even, unlabored, Respiratory pattern is regular. GI: other pt tolerated jello. Derm: Skin is pink, warm & dry. 15:09 General: pt to dialysis via WC. jjr 18:54 General: Appears uncomfortable, Behavior is restless. Neurological: No deficits noted. jjr Cardiovascular: Rhythm is sinus tachycardia. Respiratory: Airway is patent Respiratory effort is even, unlabored, Respiratory pattern is regular. Derm: Skin is dry, Skin temperature is warm. Vital Signs: 09:47 BP 151 / 69; Pulse 77; Resp 22; Temp 97.4; Pulse Ox 95% on R/A; Weight 79.38 kg (R); dem1 Height 5 ft. 7 in. (170.18 cm) (R); 10:24 BP 136 / 63 (auto/); jjr 10:25 Pulse 66 MON; Pulse Ox 97% ; jjr 11:04 BP 162 / 69 (auto/); jjr 11:06 Pulse 76 MON; Pulse Ox 94% ; jjr 11:24 BP 138 / 60 (auto/); jjr 11:24 Pulse 78 MON; Resp 20; Pulse Ox 94% on 3 lpm NC; jjr 11:44 BP 128 / 58 (auto/); jjr 11:44 Pulse 82 MON; Pulse Ox 94% ; jjr 12:04 BP 133 / 60 (auto/); jjr 12:04 Pulse 84 MON; Pulse Ox 90% ; jjr 12:44 BP 143 / 65 (auto/); jjr 12:44 Pulse 92 MON; Pulse Ox 96% ; jjr 13:04 BP 130 / 71 (auto/); jjr 13:04 Pulse 86 MON; Resp 20; Pulse Ox 96% on 3 lpm NC; jjr 15:08 Temp 96.9(O); jjr 18:48 BP 133 / 65; Pulse 110; Resp 36; Temp 98.5(TE); Pulse Ox 93% 5 lpm ; rn1 18:57 BP 133 / 65 (auto/); jjr 19:03 Pulse Ox 95% on 3 lpm NC; jjr 19:04 BP 144 / 67 (auto/); jjr 19:04 Pulse 111 MON; Pulse Ox 95% ; jjr 19:10 BP 154 / 65 (auto/); jjr 19:10 Pulse 117 MON; Resp 24; Pulse Ox 94% on 3 lpm NC; jjr 09:47 Body Mass Index 27.41 (79.38 kg, 170.18 cm) dem1 18:48 PT O2 stat ranges from 88 to 94 rn1 Vitals: 09:47 Log In Time: September 07, 2016 at 09:45. [facility] ED Course: 09:46 Patient visited by Yuri Beavers. dem1 09:46 Patient moved to Waiting dem1 09:47 Luca Bernabe is Private Physician. dem1 09:48 Patient visited by Yuri Beavers. dem1 09:49 Patient moved to Pre RCE dem1 09:50 Patient visited by Maxime Hunter, RN. mlb1 09:51 Triage Initiated mlb1 09:58 Patient visited by Maxime Hunter, RN. mlb1 09:58 Patient moved to Triage 3 mlb1 09:59 Patient visited by Maxime Hunter, RN. mlb1 10:07 Queta Richards, RN is Primary Nurse. ck1 10:07 Patient moved to 17 ck1 10:15 Chester Elkins MD is Attending Physician. ml 10:15 Patient visited by Chester Elkins MD. ml 10:24 EKG done. (by ED staff). Reviewed by Chester Elkins MD. jrd 10:36 [facility] Payment Agreement was scanned into [employer]vers[employer] and attached to record. mm15 10:57 Inserted saline lock: 20 gauge in right hand and blood collected. Labs/Blood culture jjr drawn. 10:57 Missed attempts: 20 gauge X 1 in right antecubital area, Bleeding controlled, band aid jjr applied, catheter tip intact. 10:58 Patient visited by Queta Richards, RN. jjr 10:58 The patient / caregiver is instructed regarding the plan of care and ED course. Cardiac jjr monitor on. Pulse ox on. NIBP on. 10:58 O2 via nasal cannula \T\ 3L/min. jjr 12:11 Patient visited by Queta Richards, DONNIE. jjr 12:11 -Influenza A&B Rapid Antigen - Nose Sent. jjr 12:27 Sis Austin is Hospitalizing Provider. ml 12:32 Patient visited by Suzie Myers. sew 12:32 Labs/Blood culture drawn. sew 12:38 -Arterial Blood Gas Sent. km6 13:11 Patient visited by Queta Richards, DONNIE. jjr 13:31 Chest, 1 View Returned. EDMS 14:30 Patient visited by Queta Richards, DONNIE. jjr 15:29 Patient moved to Admit Hold dy 15:38 Patient moved to 21 dy 18:48 Patient moved to 2 rn1 18:55 Patient visited by Queta Richards, DONNIE. jjr 18:59 Patient visited by William Ibarra. rn1 19:03 No procedures done that require assistance. jjr 19:11 Samantha Knutson,RN is Primary Nurse. af2 19:15 Primary Nurse role handed off by Queta Richards, RN jjr 21:54 T-Sheet-- Draft Copy was scanned into Uvers[employer] and attached to record. klr 09/08 06:44 EKG-ADULT Returned. EDMS 07:42 CT Spine,thoracic w/o contrast Returned. EDMS 07:42 CT Spine, lumbar w/o contrast Returned. EDMS 08:11 CT ANGIO ABDOMEN Returned. EDMS 08:11 CT ANGIO CHEST Returned. EDMS 02 10:22 ECG/EKG was scanned into [employer] and attached to record. gb 10:23 Radiology Report was scanned into Uversity and attached to record. gb Administered Medications: 09/07 10:40 Drug: Albuterol 5 mg [albuterol sulfate 2.5 mg/0.5 mL solution for nebulization (1 mL)] [facility] Route: Nebulizer; 10:47 Follow up: Response: Nebulizer completed km6 10:40 Drug: Albuterol-Ipratropium 3 ml [ipratropium-albuterol 0.5 mg-3 mg(2.5 mg base)/3 mL [facility] nebulization soln (3 mL)] Route: Inhalation; 10:47 Follow up: Response: Nebulizer completed km6 10:40 Drug: Ondansetron 4 mg [ondansetron HCl 2 mg/mL intravenous solution (2 mL)] Route: jjr IVP; Site: right hand; 10:40 Drug: morphine 2 mg [morphine 2 mg/mL intravenous cartridge (1 mL)] Route: IVP; Site: jjr right hand; 11:17 Drug: morphine 2 mg [morphine 2 mg/mL intravenous cartridge (1 mL)] Route: IVP; Site: dy right hand; 11:38 Drug: morphine 2 mg [morphine 2 mg/mL intravenous cartridge (1 mL)] Route: IVP; Site: jr right hand; 12:18 Drug: oxyCODONE-acetaminophen 5 mg-325 mg 1 tabs Route: PO; jjr 12:18 Drug: Cyclobenzaprine 10 mg [cyclobenzaprine 10 mg tablet (1 tabs)] Route: PO; jjr 12:41 Drug: cefTRIAXone 1 grams [ceftriaxone 1 gram solution for injection] Route: IVPB; jjr Infused Over: 30 mins; Site: right hand; Delivery: Syringe pump; 13:09 Drug: azithromycin 500 mg [azithromycin 500 mg intravenous solution] Route: IVPB; jjr Infused Over: 1 hrs; Site: right hand; 14:13 Follow up: IV Status: Completed infusion; IV Intake: 250ml jjr 13:20 Drug: Ondansetron 4 mg [ondansetron HCl 2 mg/mL intravenous solution (2 mL)] Route: jjr IVP; Site: right hand; 15:06 Drug: morphine 2 mg [morphine 2 mg/mL intravenous cartridge (1 mL)] Route: IVP; Site: jr right hand; 18:50 Drug: Labetalol 10 mg [labetalol 5 mg/mL intravenous solution (2 mL)] {Note: verbal Dr jameson Ahbed at bedside given by Jacquie RESENDIZ} Route: IVP; Rate: bolus; Infused Over: 2 mins; Site: right antecubital; 18:53 Drug: fentaNYL (PF) 25 mcg [fentanyl (PF) 50 mcg/mL injection solution (0.5 mL)] Route: jjr IVP; Site: right antecubital; 19:02 Drug: fentaNYL (PF) 25 mcg [fentanyl (PF) 50 mcg/mL injection solution (0.5 mL)] Route: jjr IVP; Site: right hand; 19:08 Drug: fentaNYL (PF) 25 mcg [fentanyl (PF) 50 mcg/mL injection solution (0.5 mL)] Route: jjr IVP; Site: right hand; 19:13 Drug: fentaNYL (PF) 25 mcg [fentanyl (PF) 50 mcg/mL injection solution (0.5 mL)] Route: jjr IVP; Site: right hand; Intake: 14:13 IV: 250.00ml; Total: 250.00ml. jjr RT: 10:46 Initial Med Neb Given as ordered Patient was instructed and evaluated on procedure km6 Patient tolerated procedure well without adverse effect. Respiratory: Breath sounds are coarse bilaterally. Breath sounds with rhonchi bilaterally. 12:38 ABG's drawn from right radial artery allens test done and positive pressure held for 5 km6 minutes specimen sent pt. tolerated well. Order Results: Lab Order: CBC with Diff; SPEC'M 09/07/16 10:48 Test: WHITE BLOOD COUNT; Value: 11.4; Range: 4.0-10.0; Abnormal: Above high normal; Units: K/mm3; Status: F Test: RED BLOOD COUNT; Value: 3.61; Range: 4.30-6.10; Abnormal: Below low normal; Units: M/mm3; Status: F Test: HEMOGLOBIN; Value: 11.2; Range: 14.0-18.0; Abnormal: Below low normal; Units: g/dl; Status: F Test: HEMATOCRIT; Value: 34.8; Range: 42.0-52.0; Abnormal: Below low normal; Units: %; Status: F Test: MEAN CORPUSCULAR VOLUME; Value: 96.4; Range: 80.0-96.0; Abnormal: Above high normal; Units: fl; Status: F Test: MEAN CORPUSCULAR HEMOGLOBIN; Value: 31.0; Range: 27.0-33.0; Units: pg; Status: F Test: MEAN CORPUSCULAR HGB CONC; Value: 32.2; Range: 32.0-36.5; Units: g/dl; Status: F Test: RED CELL DISTRIBUTION WIDTH; Value: 14.6; Range: 11.5-14.5; Abnormal: Above high normal; Units: %; Status: F Test: PLATELET COUNT, AUTOMATED; Value: 81; Range: 150-450; Abnormal: Below low normal; Units: k/mm3; Status: F Test: NEUTROPHILS %; Value: 86.7; Range: 36.0-66.0; Abnormal: Above high normal; Units: %; Status: F Test: LYMPH %; Value: 4.6; Range: 24.0-44.0; Abnormal: Below low normal; Units: %; Status: F Test: MONO %; Value: 5.0; Range: 0.0-5.0; Units: %; Status: F Test: EOS %; Value: 1.8; Range: 0.0-3.0; Units: %; Status: F Test: BASO %; Value: 0.2; Range: 0.0-1.0; Units: %; Status: F Test: LARGE UNSTAINED CELL %; Value: 1.7; Range: 0.0-4.0; Units: %; Status: F Test: NEUTROPHILS #; Value: 9.9; Range: 1.8-7.7; Abnormal: Above high normal; Units: K/mm3; Status: F Test: LYMPH #; Value: 0.5; Range: 1.5-4.5; Abnormal: Below low normal; Units: K/mm3; Status: F Test: MONO #; Value: 0.6; Range: 0.0-0.8; Units: K/mm3; Status: F Test: EOS #; Value: 0.2; Range: 0.0-0.50; Units: K/mm3; Status: F Test: BASO #; Value: 0.0; Range: 0.0-0.2; Units: K/mm3; Status: F Test: LARGE UNSTAINED CELL #; Value: 0.2; Range: 0.0-0.4; Units: K/mm3; Status: F Lab Order: [facility]; [facility] 09/07/16 10:48 Test: GLUCOSE, FASTING; Value: 96; Range: 83-110; Units: MG/DL; Status: F Test: BLOOD UREA NITROGEN; Value: 54; Range: 7-18; Abnormal: Above high normal; Units: MG/DL; Status: F Test: CREATININE FOR GFR; Value: 7.62; Range: 0.70-1.30; Abnormal: Above high normal; Units: MG/DL; Status: F Test: GLOMERULAR FILTRATION RATE; Value: 7.3; Range: >35; Abnormal: Below low normal; Status: F Test: SODIUM LEVEL; Value: 142; Range: 136-145; Units: MEQ/L; Status: F Test: POTASSIUM SERUM; Value: 4.0; Range: 3.5-5.1; Units: MEQ/L; Status: F Test: CHLORIDE LEVEL; Value: 103; Range: 98-107; Units: MEQ/L; Status: F Test: CARBON DIOXIDE LEVEL; Value: 27; Range: 21-32; Units: MEQ/L; Status: F Test: ANION GAP; Value: 12; Range: 8-16; Units: MEQ/L; Status: F Test: CALCIUM LEVEL; Value: 8.1; Range: 8.8-10.2; Abnormal: Below low normal; Units: MG/DL; Status: F Test Note: ; Units are mL/min/1.73 m2 Chronic Kidney Disease Staging per NKF: Stage I & II GFR >=60 Normal to Mildly Decreased Stage III GFR 30-59 Moderately Decreased Stage IV GFR 15-29 Severely Decreased Stage V GFR <15 Very Little GFR Left ESRD GFR <15 on TURPENTINE DISTILLER Lab Order: CIP; SPEC'09/07/16 10:48 Test: CPK CREATINE PHOSPHOKINASE; Value: 42; Range: 39-308; Units: U/L; Status: F Test: CK-MB VALUE MASS; Value: 1.5; Range: 0.0-3.6; Units: NG/ML; Status: F Test: MB/CK RELATIVE INDEX; Value: 3.57; Range: < OR =4; Status: F Test Note: ; DIAGNOSIS CRITERIA MMB ng/ml Relative Index (RI) NON-AMI < or = 5 N/A [place] > 5 < or = 4 AMI > 5 > 4 Lab Order: Troponin; SPEC'09/07/16 10:48 Test: TROPONIN I; Value: < 0.02; Range: < 0.10; Units: NG/ML; Status: F Test Note: ; Troponin I Reference Interval for [place] LOCI: 99th Percentile= 0.00-0.045 ng/ml Risk Stratification: <= 0.10 ng/ml Decreased Risk for Adverse Clinical Events. 0.10-1.50 ng/ml Increased Risk for Adverse Clinical Events. Evaluation of additional criterion and/or repeat testing in 2-6 hours is suggested to rule out myocardial damage. >= 1.50 ng/ml Indicative of Myocardial Injury. Lab Order: Liver Profile; [facility] 09/07/16 10:48 Test: AST/SGOT; Value: 7; Range: 15-37; Abnormal: Below low normal; Units: U/L; Status: F Test: ALT/SGPT; Value: 12; Range: 12-78; Units: U/L; Status: F Test: ALKALINE PHOSPHATASE; Value: 73; Range: 45-117; Units: U/L; Status: F Test: BILIRUBIN,TOTAL; Value: 0.4; Range: 0.2-1.0; Units: MG/DL; Status: F Test: BILIRUBIN,DIRECT; Value: 0.1; Range: 0.0-0.2; Units: MG/DL; Status: F Test: TOTAL PROTEIN; Value: 7.6; Range: 6.4-8.2; Units: GM/DL; Status: F Test: ALBUMIN; Value: 3.2; Range: 3.2-5.2; Units: GM/DL; Status: F Test: ALBUMIN/GLOBULIN RATIO; Value: 0.73; Range: 1.00-1.93; Abnormal: Below low normal; Status: F Lab Order: Lipase; [facility] 09/07/16 10:48 Test: LIPASE; Value: 217; Range: 73-393; Units: U/L; Status: F Lab Order: Amylase; [facility] 09/07/16 10:48 Test: AMYLASE; Value: 66; Range: 25-115; Units: U/L; Status: F Lab Order: BLOOD CULTURES; [facility] 09/07/16 10:47 Test: BLOOD CULTURE; Value: No growth after 24 hours . All specimens observed; Status: F Test: BLOOD CULTURE; Value: for 5 days. Results final at that time.; Status: F Test: BLOOD CULTURE; Value: No Growth after 48 hours. All Specimens observed; Status: F Test: BLOOD CULTURE; Value: for 7 days. Results final at that time.; Status: F Lab Order: -Influenza A&B Rapid Antigen - Nose; SPEC'M 09/07/16 12:08 Test: INFLUENZA A RAPID SCR by ICA; Value: INFLUENZA A RESULTS NEGATIVE; Status: F Test: INFLUENZA A RAPID SCR by ICA; Value: Comments:; Status: F Test: INFLUENZA B RAPID SCR by ICA; Value: INFLUENZA B RESULTS NEGATIVE; Status: F Test Note: ; The Influenza test is a direct rapid immunoassay for the qualitative detection of Influenza viral antigen. Cell culture (Viral Culture) testing should be considered to confirm NEGATIVE results and to assist in detecting other viruses that can provide similar clinical symptoms. Please contact the lab within 24 hours ([phone]) if confirmatory testing is desired. Lab Order: -Arterial Blood Gas; SPEC'M 09/07/16 12:27 Test: ABG pH (ARTERIAL); Value: 7.341; Range: 7.350-7.450; Abnormal: Below low normal; Units: UNITS; Status: F Test: ABG PARTIAL PRESSURE CO2; Value: 39.0; Range: 35.0-45.0; Units: mmHg; Status: F Test: ABG PARTIAL PRESSURE O2; Value: 86.3; Range: 75.0-100.0; Units: mmHg; Status: F Test: ABG TOTAL CO2; Value: 21.8; Range: 23.0-31.0; Abnormal: Below low normal; Units: MEQ/L; Status: F Test: ABG HCO3; Value: 20.6; Range: 22.0-26.0; Abnormal: Below low normal; Units: MEQ/L; Status: F Test: ABG BASE EXCESS; Value: -4.7; Range: -2.0-2.0; Abnormal: Below low normal; Status: F Test: ABG STANDARD HCO3; Value: 20.6; Range: 22.0-26.0; Abnormal: Below low normal; Units: MEQ/L; Status: F Test: ABG O2 SATURATION; Value: 95.7; Range: 95.0-99.0; Units: %; Status: F Test: ABG DEVICE; Value: NASAL CAMRYN; Status: F Lab Order: BLOOD CULTURES; SPEC'M 09/07/16 12:30 Test: BLOOD CULTURE; Value: No growth after 24 hours . All specimens observed; Status: F Test: BLOOD CULTURE; Value: for 5 days. Results final at that time.; Status: F Test: BLOOD CULTURE; Value: No Growth after 48 hours. All Specimens observed; Status: F Test: BLOOD CULTURE; Value: for 7 days. Results final at that time.; Status: F Lab Order: CBC; SPEC'M 09/07/16 19:08 Test: WHITE BLOOD COUNT; Value: 12.1; Range: 4.0-10.0; Abnormal: Above high normal; Units: K/mm3; Status: F Test: RED BLOOD COUNT; Value: 3.03; Range: 4.30-6.10; Abnormal: Below low normal; Units: M/mm3; Status: F Test: HEMOGLOBIN; Value: 9.6; Range: 14.0-18.0; Abnormal: Below low normal; Units: g/dl; Status: F Test: HEMATOCRIT; Value: 30.3; Range: 42.0-52.0; Abnormal: Below low normal; Units: %; Status: F Test: MEAN CORPUSCULAR VOLUME; Value: 100.1; Range: 80.0-96.0; Abnormal: Above high normal; Units: fl; Status: F Test: MEAN CORPUSCULAR HEMOGLOBIN; Value: 31.6; Range: 27.0-33.0; Units: pg; Status: F Test: MEAN CORPUSCULAR HGB CONC; Value: 31.6; Range: 32.0-36.5; Abnormal: Below low normal; Units: g/dl; Status: F Test: RED CELL DISTRIBUTION WIDTH; Value: 14.4; Range: 11.5-14.5; Units: %; Status: F Test: PLATELET COUNT, AUTOMATED; Value: 63; Range: 150-450; Abnormal: Below low normal; Units: k/mm3; Status: F Lab Order: MED Profile; SPEC'M 09/07/16 19:08 Test: GLUCOSE, FASTING; Value: 95; Range: 83-110; Units: MG/DL; Status: F Test: BLOOD UREA NITROGEN; Value: 17; Range: 7-18; Abnormal: Delta; Units: MG/DL; Status: F Test: CREATININE FOR GFR; Value: 2.87; Range: 0.70-1.30; Abnormal: High; Units: MG/DL; Status: F Test: GLOMERULAR FILTRATION RATE; Value: 22.6; Range: >35; Abnormal: Below low normal; Status: F Test: SODIUM LEVEL; Value: 148; Range: 136-145; Abnormal: Above high normal; Units: MEQ/L; Status: F Test: POTASSIUM SERUM; Value: 3.2; Range: 3.5-5.1; Abnormal: Below low normal; Units: MEQ/L; Status: F Test: CHLORIDE LEVEL; Value: 114; Range: 98-107; Abnormal: Above high normal; Units: MEQ/L; Status: F Test: CARBON DIOXIDE LEVEL; Value: 23; Range: 21-32; Units: MEQ/L; Status: F Test: ANION GAP; Value: 11; Range: 8-16; Units: MEQ/L; Status: F Test: CALCIUM LEVEL; Value: 6.6; Range: 8.8-10.2; Units: MG/DL; Status: F Test Note: ; Units are mL/min/1.73 m2 Chronic Kidney Disease Staging per NKF: Stage I & II GFR >=60 Normal to Mildly Decreased Stage III GFR 30-59 Moderately Decreased Stage IV GFR 15-29 Severely Decreased Stage V GFR <15 Very Little GFR Left ESRD GFR <15 on TURPENTINE DISTILLER Radiology Order: EKG-ADULT Test: EKG-ADULT REASON FOR EXAMINATION: Chest Pain; Stationary ECG Study; [facility] - ED; ; Test Date: 2016-09-07; Pat Name: DONOVAN GIBSON Department:; Room: -; Gender: M 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; : 1935 Requested By: Chester Elkins; Order Number: [id number] Reading MD: Chester Elkins; Measurements; Intervals [place]; Rate: 65 P: -3; [place]: 134 QRS: -44; QRSD: 122 T: 64; QT: 433; QTc: 453; Interpretive Statements; SINUS RHYTHM; MARKED LEFT AXIS DEVIATION; LAFB; MODERATE INTRAVENTRICULAR CONDUCTION DELAY; BASELINE WANDERING MAY EFFECT READING; NONSPECIFIC ST T WAVE CHANGES; ; 02/19/16 RATE DECREASED; Electronically Signed On 09-08-2016 6:26:20 EST by Chester Elkins; Radiology Order: Chest, 1 View Test: Chest, 1 View REASON FOR EXAMINATION: sob; AP PORTABLE CHEST: 09/07/2016.; ; Comparison: 02/19/2016.; ; Clinical history: Dyspnea.; ; Findings: Aortic stent graft in the descending aorta is seen from about the; level of the left hilum inferior margin to the upper abdomen is unchanged. Heart; size shows slight increase compared to previous study but there is a lower level; of inflation. Pulmonary artery hypertension is noted prominently. There is some; venous hypertension noted without pulmonary edema. Some basilar atelectasis or; patchy infiltrate in the right infrahilar region seen. No gross effusion or; dense consolidation with air bronchograms. Airway intact.; ; Impression:; ; 1. Infrahilar patchy atelectasis or infiltrate on the right with lesser degree; of inflation which may be exaggerating heart size.; ; 2. Aortic stent graft in the descending thoracic aorta unchanged with some; tortuosity.; ; 3. Degenerative changes of spine and shoulders with airway midline. No definite; effusion.; ; ; Signed by; Caesar Zelaya MD 09/07/2016 06:40 P; Radiology Order: CT ANGIO CHEST Test: CT ANGIO CHEST REASON FOR EXAMINATION: s/p Thoracic aneursym repair with intractable mid scap pain; CT ANGIOGRAM OF THE CHEST: 09/07/2016.; ; Clinical history: Intractable back pain. Known thoracic and abdominal aortic; stent graft for aneurysm.; ; Comparison: CT angiogram 02/17/2016. Portable chest 09/07/2016.; ; Technique: Bolus of 100 mL of Isovue 370 with scanning through the chest with; our CT angiogram protocol.; ; Findings: Small to moderate right pleural effusion as suggested on chest x-ray; with compressive/consolidative atelectasis or infiltrate right lower lobe and; some in the right middle lobe. There is compressive atelectatic change in the; left base as well in the left lower lobe near the fissure anteriorly. These; areas could certainly hide small nodules or lesions. I do not see a left; effusion. There is some minor calcified pleural plaques evident paraspinal; regions. Mid and upper lung zones were clear. There is some loculated fluid in; the upper lung zone separate from the lower lung zone on that right side. Heart; size is enlarged. There is left atrial and ventricular enlargement. No; pericardial thickening or effusion. The main, right, left and lobar pulmonary; arteries are without filling defects. There is no pathologic sized mediastinal; or hilar adenopathy. No supraclavicular mass. Atherosclerotic calcifications; are noted in the ascending and/or arch portion of the aorta which are not; dilated. However, the descending thoracic aorta shows a stent graft from its mid; course into the upper abdomen to the level of upper aspect L1. There is contrast; through the lumen of the stent graft. However, at the level of T11 posteriorly; and towards the right is a 2.5 x 1.2 x 2.5 cm curvilinear contrast collection; representing an endoleak. This is new compared to the 02/17/2016 prior. The; remainder of the large aneurysm at this level does not show any a change nor; further projection of the endoleak into that thrombosed aneurysmal segment. The; distal end of the Endograft was intact. The upper abdominal aorta without; thrombus or aneurysm below that graft. Adrenal glands show nodular appearance.; Origins of the great vessels off the arch are unchanged. There were no other; findings. Please see the CT thoracic spine this date for discussion of the bony; structures.; ; Impression:; ; 1. 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 An endoleak is now present at about the T11; level posteriorly and towards the right as a new finding compared to the 2015 study. A phone call pending to the requesting physician about this; finding.; ; 2. Right effusions lower and upper chest separate with consolidative compressive; atelectasis or infiltrate right lower lobe and some right middle lobe. This is a; new finding compared to the previous study which had extensive consolidation in; the right lower lobe. The mass-like density at the base on the previous chest CT; cannot be clearly defined on this study and may have been consolidation. Due to; extensive consolidation and effusion, a lesion could still be hidden by the these; findings. There is some minor atelectatic change in the left base.; ; ; Signed by; Caesar Zelaya MD 09/08/2016 06:52 P; Radiology Order: CT ANGIO ABDOMEN Test: CT ANGIO ABDOMEN REASON FOR EXAMINATION: s/p AAA repair with intractable right/mid abd pain; CT ANGIOGRAM ABDOMEN WITH CONTRAST: 09/07/2016.; ; Clinical history: Intractable back pain as endovascular stent graft of the; distal thoracic and upper abdominal aorta.; ; Helical scanning through the abdomen and pelvis after bolus of 100 mL of Isovue; 370. Coronal and sagittal reconstructions to evaluate the thoracic and abdominal; aorta in this field of view.; ; Findings: There is a right pleural effusion of moderate size. Consolidative; atelectatic changes in the right lower lobe with compressive atelectasis in the; right lower and middle lobes. There is also a left base subsegmental atelectatic; or change peripherally versus lesion in the left lower lobe. No left effusion,; calcified pleural plaque in the paraspinal region of the posterior medial basal; segment of both lower lungs. The heart is mildly enlarged. There is no; pericardial thickening or effusion. Stent graft is seen from the uppermost image; in the lower chest to the L1 level. There is patency of the lumen without; thrombus however at the T11 level there is a 2.5 x 1.2 x 2.5 cm endoleak along; the posterior and right lateral aspect of the stent graft and this is new; compared to the CT angiogram in 02/17/2016. The large aneurysm adjacent is; otherwise remained clotted and unchanged. This is the only site of Endograft; leak. That portion of liver included is unremarkable. The gallbladder was; without calcified stone or masses. There is no splenomegaly hepatomegaly, focal; hepatic or splenic lesion. There is no retroperitoneal hematoma. Adrenal gland; show somewhat nodular appearance, left greater than right suggesting adrenal; adenomas and hyperplasia. No hiatal hernia. Some transverse colon loops; centrally in the mid upper abdomen are somewhat dilated focally as seen on the; admissions evaluator film without wall thickening or mass. There is a gradual caliber change as; seen on images 72-67. The small bowel loops are unremarkable. Distally small; bowel loops and colon grossly intact. There are a few scattered diverticula in; the colon. In the pelvis inguinal canals are slightly distended with omental; fat. There are surgical clips in the right inguinal region vascular clips are; also noted at the periaortic region below the stent graft. Bladder is not; enlarged. There is no stone or mass. Prostate indents the bladder base; diverticulosis distal left colon and sigmoid noted without diverticulitis,; colitis, stricture or mass. Post surgical changes in both inguinal regions.; ; Impression:; ; 1. Aortic stent graft from the lower thoracic through upper abdominal aorta but; now with an endoleak at the level of T11 posterior toward the right, new since; the January 2016 study. The graft has patent lumen throughout. There are no other; leaks. The large thrombosed component of the aneurysm at the thoracolumbar; junction is otherwise unchanged with no other new finding. No retroperitoneal; hematoma.; ; 2. Dilated bowel loops and central upper abdomen that appear to be colon.3.; Moderate sized right pleural effusion with compressive atelectasis or; consolidative atelectasis, infiltrate right base. Soft tissue lesion or; atelectasis left base. Please see CT chest report.; ; ; Signed by; Caesar Zelaya MD 09/08/2016 06:51 P; Radiology Order: CT Spine, lumbar w/o contrast Test: CT Spine, lumbar w/o contrast REASON FOR EXAMINATION: intractable lumbar pain; CT LUMBAR SPINE WITHOUT CONTRAST: 09/07/2016.; ; Axial thin-section images from the T11 through L5-S1 were performed. Coronal and; sagittal bone window reconstructions were provided. Clinical history intractable; back pain. [employer] image shows the distal thoracic proximal abdominal aortic stent; graft.; ; Findings: The disc space heights of the lumbar spine are intact. There is mild; superior endplate depression of the right lateral aspect of L1 as noted on a; previous CT angio chest 02/17/2016, unchanged. There is no acute compression; deformity. Degenerative disc changes are noted at multiple levels with posterior; osteophytes at L4-5 and disc bulges at L4-5 and L5-S1, but no significant central; canal stenosis. There is an aortic stent graft in the proximal aspect of the; aorta which terminates at the superior aspect of L1. Please see the CT angiogram; chest and abdomen this date for more detail.; ; No paraspinal hematoma or retroperitoneal leak noted. There are degenerative; changes in the facets of the lower lumbar spine. Vacuum phenomenon at L5- S1.; SI joints grossly intact. Atherosclerotic calcifications and ectasia of the; iliacs.; ; Impression:; ; 1. Degenerative disc changes at L3-4 through L5-S1 with old minor superior; endplate depression right lateral L1, stable. No acute compression fracture,; spinal or foraminal stenosis. Please see description of the stent graft on the; CT angiogram this date.; ; ; Signed by; Caesar Zelaya MD 09/08/2016 07:38 A; Radiology Order: CT Spine,thoracic w/o contrast Test: CT Spine,thoracic w/o contrast REASON FOR EXAMINATION: intractable thoracic pain; CT THORACIC SPINE WITHOUT CONTRAST: 09/07/2016.; ; Comparison: Bone windows from CT angiogram chest 02/17/2016.; ; Clinical history: Intractable thoracic pain.; ; Findings: The patient has had a CT angiogram of the chest dedicated thoracic; reconstructions are provided. There is discogenic endplate change at C5-6 with; posterior osteophytic ridging. I do not see any acute compression deformities; from the thoracic vertebral levels. There is minor endplate spurs at multiple; levels of the thoracic spine. Mild thoracic kyphosis is seen. I do not see; definite central canal stenosis. Posterior rib articulations and foramina were; intact. The spinous processes, lamina, facets, and transverse processes were all; unremarkable. Right pleural effusion and compressive atelectatic changes in the; right base. The aortic stent graft lower thoracic aorta into the upper abdominal; aorta is noted. Posterior and just to the right aspect of the stent graft is a; curvilinear 2.5 x 1.2 x 2.5 cm hyperdense collection representing an endoleak; which was not present at that same location on the 02/17/2016 study. I do not; see dissection. This is just below the area where the very large aneurysm; projects which is otherwise unchanged, I did not see leak into it.; ; Please see the CT angiogram report this date for further detail .; ; Impression:; ; 1. There is no acute compression deformity or destructive lesion in the thoracic; spine. No central canal stenosis or foraminal encroachment present.; ; 2. The aortic stent graft from the lower thoracic to upper abdominal aorta shows; an endoleak at about the T11 level. This measures 2.5 x 1.2 x 2.5 cm and is; immediately adjacent to the posterior right aspect of that aortic stent graft; and was not present on the previous CT angio in January 2016. Please see the CT; angio report this date.; ; ; Signed by; Caesar Zelaya MD 09/08/2016 07:28 A; Outcome: 12:27 Decision to Hospitalize by Provider. 19:22 Discharge Assessment: patient administered narcotics - yes. Patient was admitted to the [address] or transferred to another facility. The following High Risk Discharge criteria are identified: Yes, critical transport. Transferred to [facility]. by EMS ground [facility]. critical. CT Study completed. Property :Personal belongings accompany Pt. 19:25 Patient left the ED. [facility] Signatures: Dispatcher [employer] EDMS Finesse-Chester Lilly MD MD Padma Arceo, Reg Reg Chuck Remy, RN RN Maxime Hunter RN RN mlb1 Treva Henson 6 TarynDolores,LeighRN RN ck1 Queta Richards RN RN China Armstrong RN RN [facility] Yuri Beavers [facility]1 Suzie Myers Marlynn mm15 Lazaro Kraus, INSPECTOR ROUGH CASTINGS INSPECTOR ROUGH CASTINGS d Samantha Knutson,RN RN af2 William Ibarra rn1 Queenie Greenwood Corrections: (The following items were deleted from the chart) 12:33 12:32 -BLOOD CULTURES+CATHERINE sent. [facility] [place] MAYIND Chart Complete MTDD
== END 2016-09-07 19:25 | disposition short-term general hospital (02) ==
LOC: M ED 09:44 → M ED INP 13:13
PROVIDERS: ADMIT Internal Medicine; ATTEND Internal Medicine Nephrology
DX: J18.9 Pneumonia, unspecified organism (principal); J96.01 Acute respiratory failure with hypoxia; T82.330A Leakage of aortic (bifurcation) graft (replacement), initial encounter; I10 Essential (primary) hypertension; E03.9 Hypothyroidism, unspecified; I25.10 Atherosclerotic heart disease of native coronary artery without angina pectoris; Z98.61 Coronary angioplasty status; J44.9 Chronic obstructive pulmonary disease, unspecified; N18.6 End stage renal disease; D63.1 Anemia in chronic kidney disease; Z79.899 Other long term (current) drug therapy; M10.9 Gout, unspecified; F17.210 Nicotine dependence, cigarettes, uncomplicated; D61.818 Other pancytopenia; Z88.8 Allergy status to other drugs, medicaments and biological substances; N40.0 Benign prostatic hyperplasia without lower urinary tract symptoms
CPT/HCPCS: 36415; 36600; 71010; 71275; 72128; 72131; 74175; 80048; 80076; 82150; 82550; 82553; 82803; 83690; 84484; 85025; 85027; 86850; 86900; 86901; 86920; 87040; 87804; 93005; 94640; 96365; 96375; 96376; 99285; G0378; J0456; J0696; J2405; J3010; Q9967

== ENCOUNTER → 2016-10-10 | Outpatient (CLI) | payer MEDICARE, MEDICAID ==
[~2016-10-10] MED LIST changes: -EZETIMIBE 10 MG TAB (ZETIA) PO SCH; -FEBUXOSTAT 40 MG TABLET (ULORIC) PO SCH; +IBUP800T23 PO; -ISOSORBIDE MON. (IMDUR) 30 MG XR TAB PO SCH; -LEVOTHYROXINE 0.025 MG TAB (25 MCG) PO SCH; -METOPROLOL TARTRATE 100 MG TAB PO SCH; +RENV2TAB PO; -TAMSULOSIN 0.4 MG CAP PO SCH; +VITA100066 PO; -VITAMIN D 1,000 INTERNATIONAL UNITS TABLET PO SCH; -amLODIPine 5 MG TAB PO SCH
--- NOTE | 2016-10-10 15:06 | REP ---
CHEST X-RAY: Two views. HISTORY: Pleural effusion. Comparison study September 07, 2016. FINDINGS: The descending aortic stent graft is noted in place. Heart is not felt to be enlarged. There is linear fibrosis in the right base. A nodular opacity projects in the left base laterally. A larger area of atelectasis is seen in this region on the chest CT from September 07, 2016. The aorta is tortuous. IMPRESSION: :Hyperinflation status post distal thoracic aortic stent graft. Somewhat nodular pleuroparenchymal fibrosis left base. Linear pleural and parenchymal fibrosis right base. No acute disease. Signed by Tommy Dickinson MD 10/10/2016 05:39 P
== END ==
LOC: M SMT 10:32
PROVIDERS: ATTEND Internal Medicine Nephrology
DX: J90 Pleural effusion, not elsewhere classified (principal)

== ENCOUNTER 2016-11-09 10:30 | Inpatient (IN) | payer MEDICARE, MEDICAID ==
[~2016-11-09] VITALS: Ht 170.2 cm; Wt 72.1 kg
--- NOTE | 2016-11-09 14:27 | REP ---
REASON: Dyspnea. COMPARISON: 10/10/2016 The small nodule seen in the left lower lobe is unchanged. Chronic lung field changes status quo. No acute findings. No change in the cardiomediastinal silhouette. Aortic stent graft status quo. No change in the osseous structures. Unchanged thickening of the major fissure. IMPRESSION: Stable chest. Signed by Adonay Mcgowan DO 11/09/2016 02:32 P
[2016-11-09 15:06] LABS: BASO % 0.1 % (0.0-1.0); EOS % 0.3 % (0.0-3.0); LARGE UNSTAINED CELL # 0.2 K/mm3 (0.0-0.4); LARGE UNSTAINED CELL % 1.3 % (0.0-4.0); LYMPH # 0.9 K/mm3 (1.5-4.5); LYMPH % 5.7 % (24.0-44.0); MEAN CORPUSCULAR HEMOGLOBIN 31.6 pg (27.0-33.0); MEAN CORPUSCULAR HGB CONC 31.9 g/dl (32.0-36.5); MEAN CORPUSCULAR VOLUME 99.3 fl (80.0-96.0); MONO % 7.6 % (0.0-5.0); NEUTROPHILS # 10.9 K/mm3 (1.8-7.7); NEUTROPHILS % 85.1 % (36.0-66.0); PLATELET COUNT, AUTOMATED 63 k/mm3 (150-450); WHITE BLOOD COUNT 12.8 K/mm3 (4.0-10.0)
[2016-11-09 15:28] LABS: ALBUMIN 3.2 GM/DL (3.2-5.2); ALKALINE PHOSPHATASE 68 U/L (45-117); ALT/SGPT 14 U/L (12-78); ANION GAP 8 MEQ/L (8-16); AST/SGOT 12 U/L (15-37); BILIRUBIN,DIRECT 0.2 MG/DL (0.0-0.2); BILIRUBIN,TOTAL 0.8 MG/DL (0.2-1.0); BLOOD UREA NITROGEN 15 MG/DL (7-18); CALCIUM LEVEL 8.7 MG/DL (8.8-10.2); CARBON DIOXIDE LEVEL 32 MEQ/L (21-32); CHLORIDE LEVEL 101 MEQ/L (98-107); CREATININE FOR GFR 3.61 MG/DL (0.70-1.30); GLOMERULAR FILTRATION RATE 17.3 (>35); GLUCOSE, FASTING 126 MG/DL (83-110); POTASSIUM SERUM 3.9 MEQ/L (3.5-5.1); SODIUM LEVEL 141 MEQ/L (136-145); TOTAL PROTEIN 7.8 GM/DL (6.4-8.2)
[2016-11-09] MEDS ORDERED: GASTROGRAFIN SOLUTION 30ML (Q9963) As Ordered ONE (15:52)
[2016-11-09] MEDS ORDERED: NS 1,000 ML IV SCH ×2 (16:30→21:30)
--- NOTE | 2016-11-09 18:20 | REPUSA ---
CLINICAL HISTORY: Abdominal pain. TECHNIQUE: Multiple axial, sagittal and coronal CT images were obtained through the abdomen and pelvi s without administration of oral or IV contrast material. COMMENTS: The liver is of uniform attenuation without mass or defect. There is no intra or extrahepatic biliary ductal dilatation. The spleen is normal. The gallbladder is within normal limits. The pancreas is of normal contour and attenuation characteristics. There is thickening of the left adrenal gland. The kidneys are normal in size, shape and configuration. No renal or ureteral calculi are identified. There is no hydroureter or hydronephrosis. Several small hyperdense lesions are noted in the right kidney most compatible with hemorrhagic cysts. There is no evidence for appendicitis. There is no bowel wall thickening. No evidence for small or la rge bowel obstruction. There is no evidence of abdominal ascites or lymphadenopathy. There is no evidence of intrinsic or extrinsic bladder mass. There is no pelvic ascites or lymphadeno lo. Prostatic calcifications are present. Evidence of prior right inguinal hernia repair. The bony structures are free of lytic or blastic lesions. Multilevel degenerative changes are seen in volving the thoracolumbar spine. Scattered calcifications are seen involving the aorta and major branches compatible with atherosclero sis. Stent is noted in the lower thoracic and upper abdominal aorta. IMPRESSION: No evidence of acute abdominal pelvic pathology. Thank you for your kind referral of this patient.
--- NOTE | 2016-11-09 19:00 | REPUSA ---
CLINICAL HISTORY: Cough, chills, elevated WBCs. TECHNIQUE: Multiple axial CT images were obtained through chest with no IV contrast material. MPR cor onal and sagittal sequences were obtained. COMMENTS: Comparison is made with the prior study dated 07/07/2017. There is no evidence of pleural or parenchymal mass. There are no pleural effusions. There is no evid ence of hilar or mediastinal lymphadenopathy. The heart and great vessels are within normal limits. The bony structures are free of lytic or blastic lesions. Multilevel degenerative changes are seen in volving the thoracic spine. Scattered calcifications are seen involving the aorta and visualized dionna r branches compatible with atherosclerosis. No evidence for abnormal enhancement. Scattered upper lobe predominance emphysema is noted. There is a bulla noted in the left upper lobe. Scarring is seen in the right middle lobe lingula and both lung bases. The distal thoracic aorta i s individually measuring up to 4.5 cm. There is evidence graft stent noted in distal thoracic and up per abdominal aorta. There is evidence of right paraaortic mass measuring approximately 7 x 6 cm mos t compatible with excluded thrombosed aneurysm. It is located at the level of distal thoracic aorta posterior to the heart. It is unchanged since the prior study. There are scattered pleural based ca lcifications present which may represent prior asbestos exposure or infection. IMPRESSION: 1. No evidence of acute thoracic pathology. 2. Emphysema. 3. Aneurysmal thoracic aorta. 4. Evidence of prior repair as above. 5. 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 Thank you for your kind referral of this patient. We appreciate the opportunity to participate in thi s patient's care.
[2016-11-09] MEDS ORDERED: ONDANSETRON 4MG/2ML VIAL (J2405) IV PRN (21:15)
[2016-11-09] MEDS ORDERED: CEFEPIME HCL 1 GM in D5W MINI-BAG PLUS 50 ML IV ONE (21:15)
[2016-11-09] MEDS: ACETAMINOPHEN TAB 650MG DOSE (2X325MG) PO PRN (21:55)
[2016-11-09] MEDS ORDERED: VANCOMYCIN HCL 1,000 MG, VIAL MATE ADAPTER 1 EACH in D5W 250 ML IV ONE (22:00)
--- NOTE | 2016-11-09 22:40 | HPE ---
DATE OF ADMISSION: 11/09/2016 PRIMARY CARE PROVIDER: Dr. Lepe FUSION OPERATOR: Luca Bernabe MD CHIEF COMPLAINT: Coughing and chills. HISTORY OF PRESENT ILLNESS: This is an 80-year-old male patient with underlying medical history of end-stage renal disease on hemodialysis Friday, , Friday and history of abdominal aortic aneurysm, thoracic aortic aneurysm with repair at [place], dyslipidemia, hypertension, coronary artery disease, hypothyroidism, BPH, thrombocytopenia. The patient was undergoing dialysis and was noticed to be having chills and rigors and subsequently sent to the emergency room. As per patient, over the past 1-2 days patient has been coughing productive of yellow-mcknight phlegm with chills last night, not feeling like himself, and retching of some mucusy material. Patient reported significant cough with pleuritic chest and abdominal discomfort. Denies any diarrhea or constipation. Denies any significant nausea or vomiting. Does have retching due to mucus. Reported nasal congestion. Denies any sick contact. Denies any recent surgery over the last month or so but over the past year patient did have some surgery primarily for aneurysm leaks of the thoracic and abdominal aneurysm and also fistula repair. Patient denies any chest pain, pressure, discomfort, palpitations. Denies any diarrhea, abdominal pain. Denies noticing any rash or any other condition or any bleeding. In the emergency room, patient was found to have lactic acidosis. Otherwise, relatively comfortable. ALLERGIES: Reported allergies to HEPARIN for bleeding and [id number] Optiflux Dialyzer for thrombocytopenia. PAST MEDICAL HISTORY: 1. Thoracic and abdominal aortic aneurysm. 2. Dyslipidemia. 3. Hypertension. 4. End-stage renal disease. 5. Coronary artery disease. 6. Hypothyroidism. 7. Thrombocytopenia with bleeding. PAST SURGICAL HISTORY: Thoracic aortic aneurysm repair with stents and abdominal aortic aneurysm repair and recent leakage of the aneurysm with further repair and coronary artery stent, last stent 2005. Arteriovenous (AV) fistula of left arm and fistula reassessment and evaluation over the past year, but nothing over the last 1-2 months. SOCIAL HISTORY: Patient used to smoke one pack of cigarettes per day for the past 50 years, quit 15 years ago. Denies alcohol use or illicit drug use. FAMILY HISTORY: Noncontributory. REVIEW OF SYSTEMS: 10-point review of systems all negative except for those mentioned in history of present illness (HPI). HOME MEDICATIONS: Patient takes: - Norvasc 5 mg by mouth daily - vitamin D 1000 units by mouth daily - Zetia 10 mg by mouth daily - Uloric 40 mg by mouth daily - ibuprofen 800 mg by mouth three times a day as needed - isosorbide mononitrate 30 mg by mouth daily - Synthroid 25 mcg by mouth daily - metoprolol 100 mg by mouth twice a day - Renvela 800 mg by mouth with meals - Flomax 0.4 mg by mouth daily PHYSICAL EXAMINATION: VITAL SIGNS: Temperature 99.1, pulse ranging from 92-100, respirations 18, blood pressure 164/75, pulse oximetry 94% on room air. GENERAL: Patient alert and oriented times three, in no acute distress, with mild cough. HEENT: Normocephalic, atraumatic. PULMONARY: Bilateral rhonchi. CARDIAC: Mild tachycardia, regular rate and rhythm. ABDOMEN: Soft, nontender, nondistended. EXTREMITIES: No edema bilateral lower extremities. EKG sinus rhythm, left anterior fascicular block. LABORATORY DATA: WBC 12.8, hemoglobin and hematocrit 10.5/32.9, platelets 63. Chemistry: Sodium 141, potassium 3.9, chloride 101, bicarbonate 32, BUN 15, creatinine 3.6, lactic acid 2.4, 3.4, cardiac enzymes negative times one, C-reactive protein 22.5, BNP 637. CT scan of the abdomen shows no evidence of acute intraabdominal pelvic pathology. CT scan of the chest shows emphysema, no evidence of acute thoracic pathology, aneurysm of thoracic aorta, evidence of prior repair, and large right periaortic mass likely representing thrombosed aortic aneurysm without change since prior study. ASSESSMENT AND PLAN: This is an 80-year-old male patient with underlying medical history of end-stage renal disease undergoing dialysis Friday, , Friday, abdominal and thoracic aortic aneurysm with repair, dyslipidemia, hypertension, coronary artery disease, hypothyroidism, BPH, thrombocytopenia. Patient admitted with sepsis possibly due to pneumonia. 1. Sepsis. Patient with leukocytosis and tachycardia, possibly secondary to pneumonia with respiratory symptoms, plus CT scan did not show anything significant. Will obtain blood cultures, sputum cultures. Influenza negative. Followup respiratory panel. Empirically started on azithromycin, cefepime, and vancomycin given patient is a hemodialysis patient with immunocompromise. Followup cultures. IV fluids initially given, will give a total of 1 liter and reassess for lactic acid. Avoid fluid overload. Strict intake and output. Patient currently is euvolemic given patient's end-stage renal disease. Patient currently normotensive. Will continue to follow cultures. 2. Hypertension. Continue Norvasc, Imdur, Lopressor and monitor blood pressure. 3. End-stage renal disease. Nephrology, Dr. Bernabe, is consulted for continuation of hemodialysis. Patient needs certain special dialysis medium given patient has history of thrombocytopenia with alternative agent. 4. Coronary artery disease. Patient with history of stent. Continue Zetia. Thrombocytopenia, therefore unable to give antiplatelet agents. Continue beta blockers. Monitor blood pressure. Telemetry monitoring. Followup cardiac enzymes, first set negative. EKG shows no significant change. 5. BPH. Continue Flomax. 6. Hypothyroidism. Continue Synthroid. 7. History of thoracic and abdominal aortic aneurysm. CT scan shows no significant change. Continue to monitor. 8. Dyslipidemia. Continue medication as ordered. 9. Thrombocytopenia. Avoid heparin. No anticoagulation. Followup platelets. Monitor hemoglobin and hematocrit. Patient needs special dialysis medium given patient had two previous reactions of thrombocytopenia to the regular dialysis medium. Will continue to monitor platelets. 10. Deep venous thrombosis (DVT) prophylaxis. Sequential compression device given patient has history of thrombocytopenia with heparin. DISPOSITION: Pending physical therapy and clinical improvement. Followup to monitor for source of infection.
[2016-11-09] MEDS: SENOKOT S TAB PO SCH (22:51)
[2016-11-09] MEDS: METOPROLOL TARTRATE 100 MG TAB PO SCH (22:52)
[2016-11-09 23:56] VITALS: BP 132/61
--- NOTE | 2016-11-10 00:04 | PHACANCOPD ---
PHARMACY VANCOMYCIN DOSING Pt Demographics Demographics Patient Age:80 , Weight: , Gender: male Adjusted Body Weight Date: 11/10/16, Adjusted Body Weight: [71.3] Kg Events Past 24 Hours Events Past 24 Hours: NO: Change in CrCl, Dialysis, Diuretic Therapy, Elevation in WBC, Fever, Other, Pending Diagnostics, Pending Procedures Vancomycin Vancomycin Target Ranges: 15-20 mcg/ml Vancomycin Load Y/N: Yes Load Dose Date Time Vancomycin Load Dose: 1000MG Date: 11-09 Time: 2200 Vancomycin Dose Date: 11/10/16. Current Vancomycin Dose: Intermittent Dosing?: Yes Labs Labs Item Value Date Time White Blood Count 12.8 K/mm3 H 11/09/16 1452 Vital Signs Label Value Date Time Patient Temperature 99.8 degrees F 11/09/16 2356 Temperature Source Temporal 11/09/16 2356 Micro Microbiology 11/09/16 Blood Culture, Received Pending 11/09/16 Blood Culture, Received Pending 11/09/16 Influenza Virus Type A Antigen - Final, Complete 11/09/16 Influenza Virus Type B Antigen - Final, Complete Creatinine Clearance Date:11/10/16. Creatinine Clearance: . Pending Labs RANDOM IN AM Assessment and Plan Maintaining Current Dose?: Yes Reason for dose change: No Dose Change Pharmacist Note Pharmacist Note Date: 11/10/16. Pharmacist note:Patient on hemodialysis. Gave 1000mg load. Random level ordered for 11-10 in am. Will dose intermittent by levels. Will comtinue to monitor and make adjustments as needed. MANI GORDON PHARMACY Nov 10, 2016 00:04
[2016-11-10] MEDS: AZITHROMYCIN INJ 500 MG, VIAL MATE ADAPTER 1 EACH in D5W 250 ML IV SCH (01:55)
[2016-11-10 04:20] VITALS: BP 137/67
[2016-11-10] MEDS: ACETAMINOPHEN TAB 650MG DOSE (2X325MG) PO PRN ×2 (04:26→16:56)
[2016-11-10] MEDS: LEVOTHYROXINE 0.025 MG TAB (25 MCG) PO SCH (05:32)
[2016-11-10 07:30] LABS: MEAN CORPUSCULAR HEMOGLOBIN 32.2 pg (27.0-33.0); MEAN CORPUSCULAR HGB CONC 32.2 g/dl (32.0-36.5); MEAN CORPUSCULAR VOLUME 99.8 fl (80.0-96.0); WHITE BLOOD COUNT 12.9 K/mm3 (4.0-10.0)
[2016-11-10 07:46] LABS: ALBUMIN 2.7 GM/DL (3.2-5.2); CALCIUM LEVEL 8.6 MG/DL (8.8-10.2); CREATININE FOR GFR 5.07 MG/DL (0.70-1.30); GLOMERULAR FILTRATION RATE 11.7 (>35); MAGNESIUM LEVEL 2.2 MG/DL (1.8-2.4); PHOSPHORUS LEVEL 4.3 MG/DL (2.5-4.9); POTASSIUM SERUM 4.1 MEQ/L (3.5-5.1)
[2016-11-10] MEDS: (RENVELA) SEVELAMER **CARBONate** 800 MG TAB PO SCH ×3 (08:59→18:29)
[2016-11-10] MEDS: ISOSORBIDE MON. (IMDUR) 30 MG XR TAB PO SCH (08:59)
[2016-11-10] MEDS: FEBUXOSTAT 40 MG TABLET (ULORIC) PO SCH (08:59)
[2016-11-10] MEDS: VITAMIN D 1,000 INTERNATIONAL UNITS TABLET PO SCH (08:59)
[2016-11-10] MEDS: SENOKOT S TAB PO SCH ×2 (08:59→20:53)
[2016-11-10] MEDS: amLODIPine 5 MG TAB PO SCH (09:00)
[2016-11-10] MEDS: METOPROLOL TARTRATE 100 MG TAB PO SCH ×2 (09:00→20:53)
[2016-11-10] MEDS: TAMSULOSIN 0.4 MG CAP PO SCH (09:00)
[2016-11-10] MEDS: EZETIMIBE 10 MG TAB (ZETIA) PO SCH (09:00)
--- NOTE | 2016-11-10 09:18 | ECGEPIP ---
Stationary ECG Study [facility] - ED Test Date: 2016-11-09 Pat Name: ROBERTH HUA Department: Room: - Gender: M Grid Maker: PB : 1935 Requested By: Inocencio Nolasco Order Number: [id number] Reading MD: Suzie Hoang Measurements Intervals [place] Rate: 88 P: 35 NM: 170 QRS: -79 QRSD: 125 T: 49 QT: 384 QTc: 467 Interpretive Statements SINUS RHYTHM LEFT ANTERIOR FASCICULAR BLOCK INCREASED RATE 09/07/16 Electronically Signed On 11-10-2016 9:18:06 EDT by Suzie Hoang
[2016-11-10] MEDS ORDERED: VANCOMYCIN HCL 750 MG, VIAL MATE ADAPTER 1 EACH in D5W 250 ML IV ONE (11:00)
[2016-11-10 12:00] VITALS: BP 147/65
--- NOTE | 2016-11-10 12:10 | IPN ---
DATE OF SERVICE: 11/10/2016 This is an 80-year-old gentleman seen at bedside. No overnight issues reported. He denies fevers, chills, rigors, nausea, or vomiting currently. However, he was sent to the emergency department when he did have rigors noted at dialysis yesterday. OBJECTIVE: Maximum temperature (Tmax) is 99.1, currently is 98.9, pulse 77, respiratory rate 18, blood pressure (BP) 137/67, SpO2 is 95% on room air. General: The patient appears to be in no acute distress. He is alert, pleasant. HEENT: Unremarkable. Lungs: Diminished bibasilar breath sounds. Otherwise clear. Heart: Regular rate and rhythm. Abdomen: Soft. Normoactive bowel sounds. No masses. No rebound. Extremities: No edema. No calf tenderness. LABORATORY DATA White count 12.9, hemoglobin 9.7, platelets are 74,000. Sodium is 138, potassium 4.1, chloride 100, bicarbonate 29, anion gap 9, BUN 28, creatinine 5.07, glucose 99. His lactic acid on admission was 2.4, currently 0.8. Phosphorus 4.3, magnesium 2.2, C-reactive protein 24.8. Blood cultures pending. He did have a preliminary on one blood culture that was positive for gram-positive cocci in clusters. Influenza A and B are negative. ASSESSMENT AND PLAN: 1. Sepsis with leukocytosis, tachycardia, and lactic acidosis. He did receive a fluid bolus in the emergency department. Will want to try to avoid volume overload. His lactic acid has trended downward nicely, and will continue with broad-spectrum antibiotics while cultures are pending. 2. End-stage renal disease requiring hemodialysis. Appreciate Dr. Bernabe's input. 3. Hypertension. Norvasc, Imdur, and Lopressor with hold parameters. 4. Chronic thrombocytopenia. Will avoid any heparin products. 5. Coronary artery disease, status post history of stent placement. Continue on Zetia. Unable to give antiplatelet because of thrombocytopenia, which is longstanding. Electrocardiogram (EKG) shows no significant change. Will continue to trend his cardiac enzymes. However, they are negative currently. 6. Benign prostatic hypertrophy (BPH). Continue Flomax. 7. Hypothyroidism. Continue Synthroid. 8. Thoracic and abdominal aortic aneurysm. No change on CT scan. Continue to monitor. 9. Dyslipidemia. Continue Zetia. 10. Thrombocytopenia. Again, avoid heparin products. No anticoagulation. 11. Deep venous thrombosis (DVT) prophylaxis. Sequential compression devices (SCDs). DISPOSITION: The patient will continue with physical therapy. Will reevaluate for clinical improvement. Continue to monitor for a source of infection and for blood culture results with bacteria identification and sensitivities. Based on those, we could plan on de-escalation of antibiotic therapy at that time. Appreciate Dr. Bernabe's input regarding his renal disease.
[2016-11-10] MEDS: CHECK TO SEE IF PATIENT IS RECEIVING DIALYSIS TODAY AND REFER TO THE VANCOMYCIN ORDER XX SCH (12:40)
[2016-11-10 16:00] VITALS: BP 133/60
[2016-11-10 18:35] VITALS: BP 105/56
[2016-11-10 20:00] VITALS: PULSE 85
[2016-11-10 21:00] VITALS: BP 126/55
[2016-11-10] MEDS: CEFEPIME HCL 0.5 GM in D5W MINI-BAG PLUS 50 ML IV SCH (21:50)
[2016-11-11] VITALS (8 sets, daily range): BP systolic 111–149; BP diastolic 56–68; PULSE 68–73
[2016-11-11] MEDS: AZITHROMYCIN INJ 500 MG, VIAL MATE ADAPTER 1 EACH in D5W 250 ML IV SCH (02:43)
[2016-11-11] MEDS: ACETAMINOPHEN TAB 650MG DOSE (2X325MG) PO PRN ×4 (03:36→21:41)
[2016-11-11] MEDS: LEVOTHYROXINE 0.025 MG TAB (25 MCG) PO SCH (05:14)
[2016-11-11 05:54] LABS: MEAN CORPUSCULAR HEMOGLOBIN 31.4 pg (27.0-33.0); MEAN CORPUSCULAR HGB CONC 31.2 g/dl (32.0-36.5); MEAN CORPUSCULAR VOLUME 100.6 fl (80.0-96.0); RED CELL DISTRIBUTION WIDTH 15.4 % (11.5-14.5)
[2016-11-11 06:38] LABS: ALBUMIN 2.3 GM/DL (3.2-5.2); CALCIUM LEVEL 8.6 MG/DL (8.8-10.2); CREATININE FOR GFR 6.49 MG/DL (0.70-1.30); GLOMERULAR FILTRATION RATE 8.8 (>35); MAGNESIUM LEVEL 2.5 MG/DL (1.8-2.4); PHOSPHORUS LEVEL 5.4 MG/DL (2.5-4.9); POTASSIUM SERUM 4.1 MEQ/L (3.5-5.1)
[2016-11-11] MEDS: SENOKOT S TAB PO SCH ×2 (09:17→21:02)
[2016-11-11] MEDS: TAMSULOSIN 0.4 MG CAP PO SCH (09:20)
[2016-11-11] MEDS: VITAMIN D 1,000 INTERNATIONAL UNITS TABLET PO SCH (09:20)
[2016-11-11] MEDS: FEBUXOSTAT 40 MG TABLET (ULORIC) PO SCH (09:20)
[2016-11-11] MEDS: EZETIMIBE 10 MG TAB (ZETIA) PO SCH (09:20)
[2016-11-11] MEDS: amLODIPine 5 MG TAB PO SCH (09:20)
[2016-11-11] MEDS: METOPROLOL TARTRATE 100 MG TAB PO SCH ×2 (09:21→21:02)
[2016-11-11] MEDS: ISOSORBIDE MON. (IMDUR) 30 MG XR TAB PO SCH (09:21)
[2016-11-11] MEDS: (RENVELA) SEVELAMER **CARBONate** 800 MG TAB PO SCH ×3 (09:21→21:02)
--- NOTE | 2016-11-11 10:42 | CR ---
DATE OF CONSULTATION: 11/10/2016 CONSULTATION REPORT FOR: Elizabeth Chavez MD REASON FOR CONSULTATION: To assist in the management of end-stage renal disease and sepsis. HISTORY OF PRESENT ILLNESS: Mr. Gibson is an 80-year-old male with known history of end-stage renal disease, thoracic and abdominal aortic aneurysm, hypertension, coronary artery disease, dyslipidemia, chronic thrombocytopenia, and hypothyroidism. The patient was in hemodialysis yesterday where he reported shivering and chills. He did complete his dialysis treatment and was sent to the emergency room. In the emergency room, his lactic acid level was noticed to be quite elevated at 3.4. He does have a history of pneumonia and pleural effusion just about six weeks ago when he was admitted to the hospital in [place]. We were concerned about the possibility of recurrent pneumonia or other source of infection. He did have blood cultures drawn and broad-spectrum antibiotics were initiated yesterday. The patient is still in the emergency room waiting for a bed where I have seen him this afternoon. PAST MEDICAL AND SURGICAL HISTORY: Significant for: 1. History of thoracic and abdominal aortic aneurysm, status post endovascular repair. 2. Hypertension. 3. End-stage renal disease requiring maintenance hemodialysis. 4. Dyslipidemia. 5. Coronary artery disease. 6. History of chronic thrombocytopenia. 7. Hypothyroidism. 8. History of benign prostatic hypertrophy (BPH). 9. History of anemia. 10. Recent history of pneumonia. PAST SURGICAL HISTORY: Significant for thoracic aortic aneurysm repair and abdominal aortic aneurysm repair previously, arteriovenous (AV) fistula creation in left arm. He also has coronary artery stents. PERSONAL AND SOCIAL HISTORY: The patient is a former smoker. He denies any alcohol or drug use. He lives with his family. FAMILY HISTORY: There is no family history for end-stage renal disease. REVIEW OF SYSTEMS: At present, he denies any fever or chills. Ears, nose and throat are unremarkable. He denies any headache. Cardiovascular system is negative for dyspnea or chest pain. Respiratory system negative for cough or hemoptysis. Gastrointestinal (GI) system is significant for nausea and poor appetite. Genitourinary () system is negative for dysuria or hematuria. Endocrine system is negative for diabetes. Hematological system is significant for chronic thrombocytopenia. Musculoskeletal system is negative for any significant arthritis. Psychosocial system negative for depression or anxiety. Skin is negative for rash or ulcers. Neurological system is negative for seizures or stroke. MEDICATIONS: His home medications include: - Norvasc 5 mg daily - vitamin D 1000 units daily - Zetia 10 mg daily - Uloric 40 mg daily - isosorbide 30 mg daily - Synthroid 25 mcg daily - metoprolol 100 mg twice a day - Renvela 800 mg three times a day with meals - Flomax 0.4 mg daily PHYSICAL EXAMINATION: At the time of my visit, the patient is awake and alert. He is not in any acute distress. Temperature 98.9 degrees Fahrenheit, heart rate 77 per minute and respiratory rate 18 per minute. Blood pressure 137/67 mmHg and oxygen saturation 95% on room air. His head is atraumatic. Ears, nose and throat are unremarkable. Pupils are equal and reactive to light and sclera is anicteric. Neck is supple and jugular venous distention (JVD) is mildly elevated. There is no thyroid enlargement. Heart sounds are regular. Lungs sound clear to auscultation bilaterally. Abdomen is soft and nontender and without any palpable organomegaly. Bowel sounds are normal. Extremities have no cyanosis or clubbing. Left arm arteriovenous (AV) fistula is patent and without any signs of infection. Skin has no rash or ulcers. Neurologically, he is awake and alert and without any focal deficit. LABORATORY DATA: Today's laboratories show WBC count 12.9, hemoglobin 9.7, and hematocrit 30. Platelets are 74,000. Yesterday, his lactic acid level was initially 2.4 and a repeat one was 3.4. Today, his lactic acid is down to 0.8. BUN is 28 and creatinine 5.0. His C-reactive protein is elevated at 24.8. Electrolytes are all within normal range. Blood cultures drawn last evening, one set has already been reported positive for Gram-positive cocci in clusters. PROBLEMS: 1. Gram-positive bacteremia. Source is not obvious at present. I am concerned about the possibility of arteriovenous (AV) fistula-related infection or endovascular graft-related infection. In any event, the final result of cultures is still pending and the patient has been started on cefepime. He also received one dose of vancomycin 1 gram. We will continue with vancomycin after hemodialysis. He is also receiving azithromycin which can probably be stopped. 2. End-stage renal disease. The patient did complete his dialysis treatment yesterday and his next dialysis will be scheduled for Friday. 3. Thrombocytopenia. This is a chronic issue and he does not have any evidence of bleeding at present. We do not give him any heparin during dialysis. 4. Anemia. His anemia has been stable and does not need any urgent intervention. 5. Lactic acidosis, related to sepsis and has already improved. I will stop the IV fluid as the patient is at risk for getting volume overloaded. His blood pressure is stable and I do not feel that intravenous fluid is indicated at this point. I thank you for involving me in the care of Mr. Gibson. I will follow him along with you.
[2016-11-11] MEDS ORDERED: DARBEPOETIN 300 MCG/0.6 ML *DIALYSIS* SYRINGE (J0882) IV SCH (12:00)
--- NOTE | 2016-11-11 14:18 | IPN ---
DATE: 11/11/2016 Mr. Gonzales is seen this morning on his bedside in the progressive care unit. He is feeling better, however, still has no appetite. He denies any dyspnea or chest pain. There is no further chills, shivering or fever. He did have one set of blood cultures positive for Staph aureus and has been on antibiotics including cefepime and vancomycin. Repeat blood cultures are negative so far. On physical exam, this morning his temperature is 99.1 degrees Fahrenheit, heart rate 85 per minute and respiratory rate 18 per minute. Blood pressure 143/67 mmHg and oxygen saturation 96% on room air. His head is atraumatic. Ears, nose and throat are unremarkable. Neck is supple and without thyroid enlargement. Jugular venous distention (JVD) is elevated only about 4-5 cm above the sternal angle. Heart sounds are regular and lungs sound clear to auscultation. Abdomen is soft and nontender and without any palpable organomegaly. Extremities have no cyanosis or clubbing. Today's labs show WBC count 10.0, hemoglobin 8.6 and hematocrit 27.6. Platelets are 73,000. Sodium 136 and potassium 4.1. BUN 49 and creatinine 6.49. C-reactive protein is up to 30.4. Calcium is 8.6 and phosphorus 5.4. PROBLEMS: 1. Staph aureus bacteremia. The patient is still with low grade fever and has been on antibiotics. I suggest to stop his azithromycin and continue with vancomycin 1 gram after each dialysis and cefepime 500 mg every 24 hours. 2. End-stage renal disease. The patient is dialysis dependent and his next dialysis will be scheduled for tomorrow. 3. Increasing C-reactive protein. I am concerned about the possibility of endocarditis or infection in his ascending aortic graft prosthesis. His repeat blood cultures are negative so far. We will need to monitor him closely. 4. Anemia. His anemia is getting worse and we will order Aranesp 300 mcg with hemodialysis tomorrow. 5. Thrombocytopenia. This is chronic and stable and does not need any intervention at this point. 6. Hypertension. Blood pressure is reasonably well-controlled and no changes in antihypertensives are needed.
[2016-11-11] MEDS: CHECK TO SEE IF PATIENT IS RECEIVING DIALYSIS TODAY AND REFER TO THE VANCOMYCIN ORDER XX SCH (16:00)
--- NOTE | 2016-11-11 17:57 | IPNPDOC ---
Date Seen The patient was seen on 11/11/16. Progress Note Hospitalist Progress Note Subjective: The patient does not report any complaints. Objective: Physical Exam: Vitals: Vital Sign - Last 24 Hours 11/10/16 11/10/16 11/10/16 11/10/16 18:35 18:35 20:00 20:00 Temp 99.8 Pulse 64 85 Resp 18 B/P 105/56 Pulse Ox 94 O2 Delivery Room Air Room Air Room Air 11/10/16 11/10/16 11/11/16 11/11/16 20:53 21:00 00:00 00:00 Temp 99.7 Pulse 80 80 73 Resp 18 B/P 126/55 126/55 O2 Delivery Room Air Room Air 11/11/16 11/11/16 11/11/16 11/11/16 00:00 04:00 04:00 05:05 Temp 99.8 99.0 Pulse 75 68 76 Resp 18 18 B/P 136/65 131/62 Pulse Ox 92 91 O2 Delivery Room Air Room Air Room Air 11/11/16 11/11/16 11/11/16 11/11/16 08:00 08:00 09:20 12:00 Temp 99.1 98.9 Pulse 85 82 80 Resp 18 18 B/P 143/67 143/61 139/68 Pulse Ox 96 97 O2 Delivery Room Air Room Air Room Air General: Awake, alert, no acute distress HEENT: Normocephalic, atraumatic, extraocular movements intact CV: Regular rate and rhythm, no murmurs rubs or gallops Lungs: Clear to auscultation bilaterally Abd: Soft, Nontender, nondistended Extremities: No edema Neuro: Alert and oriented 3, normal speech Psych: normal mood and affect Labs and Imaging: Laboratory Tests 11/11/16 05:38 Anion Gap 12, Red Blood Count 2.74 L, Mean Corpuscular Volume 100.6 H, Mean Corpuscular Hemoglobin 31.4, Mean Corpuscular Hemoglobin Concent 31.2 L, Red Cell Distribution Width 15.4 H Assessment and Plan: 80-year-old male with end-stage renal disease on hemodialysis, history of abdominal and thoracic aortic aneurysm status post repair, hypertension, coronary artery disease, hyperlipidemia, hypothyroidism, BPH, chronic thrombocytopenia who presented with coughing and chills, has been found to have severe sepsis secondary to staph aureus bacteremia. 1. Severe sepsis secondary to staph aureus bacteremia: Lactate went up to as high as 3.4, but has now normalized. First set of blood cultures grew staph aureus in 1 out of 2 bottles. Repeat blood cultures are pending. We will continue the patient on vancomycin and cefepime. We will stop the azithromycin at this time. The patient had a fever yesterday afternoon to 100.6, but his white count has now normalized. We will evaluate with an echocardiogram for any possible vegetations, and we will consult Dr. Edwards of infectious disease. CRP is currently increasing. 2. Hypertension: Continue home Norvasc, Imdur, Lopressor. 3. Hypothyroidism: Continue home Synthroid. 4. Coronary artery disease: Continue home beta cornelia. Patient is not currently on a statin, which should be discussed with his outpatient physicians. The patient is unable to tolerate any antiplatelets secondary to his thrombocytopenia. Continue home zetia. 5. BPH: Continue home Flomax. 6. End-stage renal disease on hemodialysis: Continue home Renvela. We appreciate nephrology's assistance with hemodialysis. 7. Chronic anemia: Secondary to end-stage renal disease: Hemoglobin is currently stable. 8. Chronic thrombocytopenia: Platelets appear to currently be at baseline. The patient cannot tolerate heparin or the OPTi flux polysulfone dialyzer. DVT prophylaxis: Teds and SCDs Dispo: pending resolution of staph aureus bacteremia VS, I&O, 24H, Fishbone Vital Signs/I&O Vital Signs Date Time Temp Pulse Resp B/P Pulse Ox O2 Delivery O2 Flow Rate FiO2 11/11/16 12:00 98.9 80 18 139/68 97 Room Air I&O- Last 24 Hours up to 6 AM 11/11/16 05:59 Intake Total 1850 ml Output Total 500 ml Balance 1350 ml Laboratory Data 24H LABS Laboratory Tests 2 11/11/16 05:38: Albumin 2.3L, Blood Urea Nitrogen 49#H, Creatinine 6.49H, Sodium Level 136, Potassium Level 4.1, Chloride Level 98, Carbon Dioxide Level 26, Anion Gap 12, C -Reactive Protein, Quantitative 30.40H, Calcium Level 8.6L, Glomerular Filtration Rate 8.8L, Magnesium Level 2.5H, Phosphorus Level 5.4#H CBC/BMP Laboratory Tests 11/11/16 05:38 Anion Gap 12, Red Blood Count 2.74 L, Mean Corpuscular Volume 100.6 H, Mean Corpuscular Hemoglobin 31.4, Mean Corpuscular Hemoglobin Concent 31.2 L, Red Cell Distribution Width 15.4 H Microbiology Microbiology 11/10/16 Blood Culture - Preliminary, Resulted No growth after 24 hours . All specim... 11/10/16 Blood Culture - Preliminary, Resulted No growth after 24 hours . All specim... 11/09/16 Blood Culture - Preliminary, Resulted Staphylococcus Aureus 11/09/16 Blood Culture - Preliminary, Resulted No Growth after 48 hours. All Specime... 11/09/16 Respiratory Virus Panel (PCR) ([facility]) - Final, Complete 11/09/16 Influenza Virus Type A Antigen - Final, Complete 11/09/16 Influenza Virus Type B Antigen - Final, Complete ADRIANA MOREJON Nov 11, 2016 17:56
[2016-11-11] MEDS ORDERED: SLF 3 ML SYR IV PRN (20:15)
[2016-11-11] MEDS: SLF 3 ML SYR IV SCH (21:41)
[2016-11-11] MEDS: CEFEPIME HCL 0.5 GM in D5W MINI-BAG PLUS 50 ML IV SCH (21:41)
[2016-11-12] VITALS (8 sets, daily range): BP systolic 107–159; BP diastolic 53–88
[2016-11-12 05:39] LABS: MEAN CORPUSCULAR HEMOGLOBIN 31.2 pg (27.0-33.0); MEAN CORPUSCULAR HGB CONC 31.1 g/dl (32.0-36.5); MEAN CORPUSCULAR VOLUME 100.5 fl (80.0-96.0); RED CELL DISTRIBUTION WIDTH 15.4 % (11.5-14.5); WHITE BLOOD COUNT 10.2 K/mm3 (4.0-10.0)
[2016-11-12 05:48] LABS: ALBUMIN 2.3 GM/DL (3.2-5.2); CALCIUM LEVEL 8.2 MG/DL (8.8-10.2); CREATININE FOR GFR 7.46 MG/DL (0.70-1.30); GLOMERULAR FILTRATION RATE 7.5 (>35); MAGNESIUM LEVEL 2.4 MG/DL (1.8-2.4); PHOSPHORUS LEVEL 5.4 MG/DL (2.5-4.9)
[2016-11-12] MEDS: LEVOTHYROXINE 0.025 MG TAB (25 MCG) PO SCH (06:39)
[2016-11-12] MEDS: ACETAMINOPHEN TAB 650MG DOSE (2X325MG) PO PRN ×2 (06:39→12:48)
[2016-11-12] MEDS: FEBUXOSTAT 40 MG TABLET (ULORIC) PO SCH (06:40)
[2016-11-12] MEDS: SENOKOT S TAB PO SCH ×2 (06:40→20:28)
[2016-11-12] MEDS: EZETIMIBE 10 MG TAB (ZETIA) PO SCH (06:40)
[2016-11-12] MEDS: VITAMIN D 1,000 INTERNATIONAL UNITS TABLET PO SCH (06:40)
[2016-11-12] MEDS: METOPROLOL TARTRATE 100 MG TAB PO SCH ×2 (06:40→20:28)
[2016-11-12] MEDS: amLODIPine 5 MG TAB PO SCH (06:40)
[2016-11-12] MEDS: SLF 3 ML SYR IV SCH ×3 (06:41→20:28)
[2016-11-12] MEDS: ISOSORBIDE MON. (IMDUR) 30 MG XR TAB PO SCH (06:41)
[2016-11-12] MEDS: TAMSULOSIN 0.4 MG CAP PO SCH (06:43)
[2016-11-12] MEDS: (RENVELA) SEVELAMER **CARBONate** 800 MG TAB PO SCH ×3 (08:00→18:00)
[2016-11-12] MEDS: VANCOMYCIN HCL 1,000 MG, VIAL MATE ADAPTER 1 EACH in D5W 250 ML IV SCH ×3 (14:05→15:21)
[2016-11-12] MEDS: CHECK TO SEE IF PATIENT IS RECEIVING DIALYSIS TODAY AND REFER TO THE VANCOMYCIN ORDER XX SCH (14:05)
--- NOTE | 2016-11-12 18:10 | IPN ---
DATE: 11/12/2016 Mr. Gibson is seen this morning on his bedside during hemodialysis. He is feeling better today and reports that his nausea has improved and he had a good breakfast. He does get short of breath at times, particularly when he walks. He denies any chest pain. There have been no fever or chills. REVIEW OF SYSTEMS: Otherwise unremarkable. PHYSICAL EXAMINATION: On physical examination, temperature 99.4 degrees Fahrenheit, heart rate 75 per minute and respiratory rate 18 per minute. Blood pressure 116/57 mmHg and oxygen saturation 97% on room air. Head is atraumatic. Ears, nose and throat are unremarkable. Neck is supple and without any jugular venous distention (JVD) or thyroid enlargement. Trachea is midline. Pupils are equal and reactive to light and sclera is anicteric. Heart sounds are regular. Lungs sound clear to auscultation. Abdomen is soft and nontender. There is no palpable organomegaly and bowel sounds are normal. Extremities have no cyanosis or clubbing. Skin has no rash or ulcers. Neurologically, he has no focal deficit. LABORATORY DATA: Today's laboratories show WBC count 10.2, hemoglobin 8.6 and hematocrit 27.7. Platelets 89,000. Sodium 137 and potassium 4.0. BUN 60 and creatinine 7.46. A C-reactive protein is up to 31.40. PROBLEMS: 1. End-stage renal disease. The patient is currently being dialyzed. He will complete his three and a half hour dialysis treatment today. His electrolytes are within normal range and volume status is reasonably well-compensated. We are trying to remove about 1.5 to 2.0 liters of fluid today which he is tolerating very well. 2. Bacteremia with increasing C-reactive protein. I am concerned about the possibility of endocarditis or infection of endovascular aortic graft. The patient has been on broad-spectrum antibiotics for three days and yet, his C-reactive protein is increasing which is quite concerning. I recommend to get a transesophageal echocardiogram. His repeat blood cultures have been negative and we will wait for echocardiogram results. 3. Anemia. The patient has worsening anemia probably related to bacteremia and he will be treated with Aranesp 300 mcg. We will continue to monitor closely. At this point, there is no indication for a transfusion. I would also suggest to repeat CT scan of his chest with IV contrast to rule out any possibility of para-aortic leak from his thoracic aortic aneurysm. 4. Hypertension. Blood pressure has been very well-controlled. 5. Hypoxemia. At present, he seems to be doing well on room air with 95% to 97% oxygen saturation.
--- NOTE | 2016-11-12 18:24 | IPNPDOC ---
Date Seen The patient was seen on 11/12/16. Progress Note Hospitalist Progress Note Subjective: The patient reports intermittent shooting pains in various parts of his body; he is unable to pinpoint more specifically Objective: Physical Exam: Vitals: Vital Sign - Last 24 Hours 11/11/16 11/11/16 11/11/16 11/11/16 20:00 20:00 21:02 23:59 Temp 99.0 99.4 Pulse 80 80 83 Resp 20 20 B/P 149/67 149/67 123/56 Pulse Ox 92 92 O2 Delivery Room Air Room Air Room Air 11/12/16 11/12/16 11/12/16 11/12/16 04:00 06:40 06:40 08:00 Temp 99.8 99.4 Pulse 74 74 74 75 Resp 20 18 B/P 159/68 159/68 159/68 116/57 Pulse Ox 92 97 O2 Delivery Room Air Room Air 11/12/16 11/12/16 11/12/16 11/12/16 12:00 12:30 12:53 13:10 Temp 98.9 99.2 99.2 Pulse 76 88 89 Resp 18 22 B/P 120/60 116/58 116/88 Pulse Ox 97 95 95 O2 Delivery Room Air Room Air Room Air Room Air 11/12/16 16:00 O2 Delivery Room Air General: Awake, alert, no acute distress HEENT: Normocephalic, atraumatic, extraocular movements intact CV: Regular rate and rhythm Lungs: Clear to auscultation bilaterally, no wheeze Abd: Soft, nondistended, TTP of RUQ and epigastrum Extremities: No edema Neuro: Alert and oriented 3, normal speech Psych: normal mood and affect Labs and Imaging: Laboratory Tests 11/12/16 05:16 Anion Gap 10, Red Blood Count 2.76 L, Mean Corpuscular Volume 100.5 H, Mean Corpuscular Hemoglobin 31.2, Mean Corpuscular Hemoglobin Concent 31.1 L, Red Cell Distribution Width 15.4 H Assessment and Plan: 80-year-old male with end-stage renal disease on hemodialysis, 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 1. Severe sepsis secondary to staph aureus bacteremia: Lactate went up to as high as 3.4, but has now normalized. First set of blood cultures grew MSSA in 1 out of 2 bottles. Repeat blood cultures are negative. We will continue the patient on vancomycin and cefepime. The patient has been afebrile and his white count has now normalized. TTE is pending. Unfortunately, we do not have ID coverage this week. CRP is currently increasing. Pending results of TTE, will consider COREY and possibly further imaging of thoracic aortic graft. 2. Hypertension: Continue home Norvasc, Imdur, Lopressor. 3. Hypothyroidism: Continue home Synthroid. 4. Coronary artery disease: Continue home beta cornelia. Patient is not currently on a statin, which should be discussed with his outpatient physicians. The patient is unable to tolerate any antiplatelets secondary to his thrombocytopenia. Continue home zetia. 5. BPH: Continue home Flomax. 6. End-stage renal disease on hemodialysis: Continue home Renvela. We appreciate nephrology's assistance with hemodialysis. 7. Chronic anemia: Secondary to end-stage renal disease: Hemoglobin is currently stable. 8. Chronic thrombocytopenia: Platelets appear to currently be at baseline. The patient cannot tolerate heparin or the OPTi flux polysulfone dialyzer. 9. TTP of RUQ on exam: check LFTS and RUQ US DVT prophylaxis: Teds and SCDs Dispo: pending work up of MSSA bacteremia VS, I&O, 24H, Fishbone Vital Signs/I&O Vital Signs Date Time Temp Pulse Resp B/P Pulse Ox O2 Delivery O2 Flow Rate FiO2 11/12/16 16:00 Room Air 11/12/16 12:53 99.2 89 22 116/88 95 I&O- Last 24 Hours up to 6 AM 11/12/16 06:00 Intake Total 900 ml Output Total 650 ml Balance 250 ml Laboratory Data 24H LABS Laboratory Tests 2 11/12/16 05:16: Albumin 2.3L, Blood Urea Nitrogen 60H, Creatinine 7.46H, Sodium Level 137, Potassium Level 4.0, Chloride Level 99, Carbon Dioxide Level 28, Anion Gap 10, C -Reactive Protein, Quantitative 31.40H, Calcium Level 8.2L, Glomerular Filtration Rate 7.5L, Magnesium Level 2.4, Phosphorus Level 5.4H CBC/BMP Laboratory Tests 11/12/16 05:16 Anion Gap 10, Red Blood Count 2.76 L, Mean Corpuscular Volume 100.5 H, Mean Corpuscular Hemoglobin 31.2, Mean Corpuscular Hemoglobin Concent 31.1 L, Red Cell Distribution Width 15.4 H Microbiology Microbiology 11/10/16 Blood Culture - Preliminary, Resulted No Growth after 48 hours. All Specime... 11/10/16 Blood Culture - Preliminary, Resulted No Growth after 48 hours. All Specime... 11/09/16 Blood Culture - Final, Complete Staphylococcus Aureus 11/09/16 Blood Culture - Preliminary, Resulted No Growth after 72 hours. All specime... 11/09/16 Respiratory Virus Panel (PCR) ([facility]) - Final, Complete 11/09/16 Influenza Virus Type A Antigen - Final, Complete 11/09/16 Influenza Virus Type B Antigen - Final, Complete ADRIANA MOREJON Nov 12, 2016 18:23
--- NOTE | 2016-11-12 18:34 | ECHO ---
DATE OF PROCEDURE: 11/11/2016 REFERRING PHYSICIAN: Vanessa Tucker MD PATIENT LOCATION: Room 3221 REASON FOR ECHOCARDIOGRAM: Bacteremia. 2D MEASUREMENTS: IVS: 1.4 cm LV: 4.5 cm LVPW: 1.4 cm LA: 4.6 cm Aorta: 3.8 cm IVC: 2.0 cm DOPPLER MEASUREMENTS: Peak velocity across the aortic valve: 1.7 m/s Peak velocity across the LVOT: 1.2 m/s Mitral E: 0.81, Mitral A: 1.0, with a ratio of 0.8 Maximum tricuspid valve velocity: 2.8 m/s 2D COMMENTS: 1. Normal left ventricular size with mildly increased left ventricular wall thickness and a normal global left ventricular systolic function. The estimated left ventricular systolic ejection fraction is 60 to 65%. 2. Mildly enlarged left atrium. Normal right atrium and right ventricle. 3. The atrial septum appeared to be normal without evidence of defect or shunt. 4. Mildly enlarged aortic root at 3.8 cm. 5. Moderately calcified aortic valve with minimally restricted leaflet motion. There was an echogenic structure on the aortic side of the aortic valve that may be related to vegetations. 6. Mildly calcified mitral annulus with normal anterior mitral valve leaflet motion. Normal tricuspid valve and pulmonic valve. The proximal pulmonary artery branches were not well visualized. 7. The inferior vena cava was borderline enlarged. DOPPLER: It detects trace aortic regurgitation, mild mitral regurgitation and moderate tricuspid regurgitation. The calculated pulmonary artery systolic pressure varies between 30 to 40 mmHg. Abnormal relaxation pattern was noted across the mitral valve leaflets as well as the mitral valve annulus consistent with delayed relaxation. IMPRESSION: 1. Normal global left ventricular systolic function with mild concentric left ventricular hypertrophy. There are some features of left ventricular diastolic dysfunction, grade 1. 2. Aortic valve sclerosis with trace aortic regurgitation and trivial aortic stenosis. Cannot rule out vegetations on the aortic valve and I will strongly recommend a transesophageal echocardiogram for further evaluation. 3. Mitral annulus calcification with mildly enlarged left atrium and mild mitral regurgitation. 4. Moderate tricuspid regurgitation with mild pulmonary hypertension.
[2016-11-12] MEDS: CEFEPIME HCL 0.5 GM in D5W MINI-BAG PLUS 50 ML IV SCH (20:28)
[2016-11-13] MEDS: ACETAMINOPHEN TAB 650MG DOSE (2X325MG) PO PRN ×3 (02:51→19:03)
[2016-11-13 04:00] VITALS: BP 109/57
[2016-11-13] MEDS: SLF 3 ML SYR IV SCH ×3 (05:27→21:12)
[2016-11-13] MEDS: LEVOTHYROXINE 0.025 MG TAB (25 MCG) PO SCH (05:27)
[2016-11-13 05:57] LABS: MEAN CORPUSCULAR HEMOGLOBIN 32.4 pg (27.0-33.0); MEAN CORPUSCULAR HGB CONC 32.1 g/dl (32.0-36.5); MEAN CORPUSCULAR VOLUME 101.1 fl (80.0-96.0); RED CELL DISTRIBUTION WIDTH 15.7 % (11.5-14.5); WHITE BLOOD COUNT 8.7 K/mm3 (4.0-10.0)
[2016-11-13 06:16] LABS: ALBUMIN 2.3 GM/DL (3.2-5.2); ALBUMIN/GLOBULIN RATIO 0.5 (1.00-1.93); BILIRUBIN,TOTAL 0.4 MG/DL (0.2-1.0); CALCIUM LEVEL 8.5 MG/DL (8.8-10.2); CREATININE FOR GFR 5.27 MG/DL (0.70-1.30); GLOMERULAR FILTRATION RATE 11.2 (>35); MAGNESIUM LEVEL 2.4 MG/DL (1.8-2.4); PHOSPHORUS LEVEL 3.3 MG/DL (2.5-4.9); POTASSIUM SERUM 4.1 MEQ/L (3.5-5.1); TOTAL PROTEIN 6.9 GM/DL (6.4-8.2)
[2016-11-13 08:00] VITALS: BP 129/57
--- NOTE | 2016-11-13 09:17 | REP ---
Right upper quadrant sonography: History: Abdominal pain right upper quadrant. Comparison CT study of the abdomen is from November 09, 2016. CT is also reviewed from September 07, 2016. Findings: Incidental note is made of the right distal middle mediastinal mass consistent with hematoma seen in the lower chest on prior chest CT studies. This is associated with a now stented distal abdominal aortic aneurysm. Scanning through the right upper quadrant of the abdomen demonstrates a somewhat thick-walled but otherwise unremarkable gallbladder. Gallbladder wall measures 4 mm in thickness. No stone or polyp is seen. Common bile duct is at the upper range of normal as well measuring 7.5 mm in diameter. No sonographic evidence of choledocholithiasis seen. Pancreas is obscured by abdominal gas. No focal liver lesion is seen. There is no evidence of ascites. Multiple cysts are seen in the right kidney. The largest of these measures 11 mm x 19 mm x 9 mm. The right kidney measures 9.4 x 4.0 x 4.4 cm. Impression: Mild gallbladder wall thickening. No stone or polyp seen. Incidental note is made of the known hematoma in the lower chest right periaortic location in the middle mediastinum. This is seen on recent CT studies and is unchanged. There are right renal cysts. Signed by Tommy Dickinson MD 11/13/2016 01:38 P
[2016-11-13] MEDS: FEBUXOSTAT 40 MG TABLET (ULORIC) PO SCH (10:09)
[2016-11-13] MEDS: (RENVELA) SEVELAMER **CARBONate** 800 MG TAB PO SCH ×3 (10:09→17:25)
[2016-11-13] MEDS: amLODIPine 5 MG TAB PO SCH (10:09)
[2016-11-13] MEDS: TAMSULOSIN 0.4 MG CAP PO SCH (10:09)
[2016-11-13] MEDS: SENOKOT S TAB PO SCH ×2 (10:09→21:11)
[2016-11-13] MEDS: EZETIMIBE 10 MG TAB (ZETIA) PO SCH (10:10)
[2016-11-13] MEDS: METOPROLOL TARTRATE 100 MG TAB PO SCH ×2 (10:10→21:12)
[2016-11-13] MEDS: ISOSORBIDE MON. (IMDUR) 30 MG XR TAB PO SCH (10:10)
[2016-11-13] MEDS: VITAMIN D 1,000 INTERNATIONAL UNITS TABLET PO SCH (10:10)
[2016-11-13 11:57] VITALS: BP 114/52
[2016-11-13] MEDS ORDERED: ISOVUE-370 76% 100ML VIAL (Q9967) As Ordered ONE (13:22)
[2016-11-13] MEDS: CHECK TO SEE IF PATIENT IS RECEIVING DIALYSIS TODAY AND REFER TO THE VANCOMYCIN ORDER XX SCH (14:21)
--- NOTE | 2016-11-13 14:42 | REP ---
CT ANGIOGRAM OF THE ABDOMEN WITH IV CONTRAST: HISTORY: MSSA bacteremia; evaluate aortic graft for nidus of infection. Comparison exam is from September 07, 2006 CT contrast dose: 100 mL of Isovue [address] ANGIOGRAPHIC FINDINGS: The findings of the distal thoracic aorta will be reviewed in the CT angiogram of the chest report. A proximal abdominal and lower thoracic aortic stent graft is seen in place. There is considerable atherosclerotic irregularity of the abdominal aorta below the level of the stent graft. There is 50 to 60% narrowing of the abdominal aorta just below the origin of the renal arteries. This is unchanged when compared with a August 2016 prior study. There is some atherosclerotic plaquing at the iliac artery origins. 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 The celiac and superior mesenteric arteries are patent arising in the segment of the aorta just below the bottom edge of the graft. The renal arteries are patent. IMPRESSION: Atherosclerotic irregularity thoracoabdominal stent graft in place. No acute arterial abnormality noted in the abdomen. See chest ANGIO report. Signed by Tommy Dickinson MD 11/13/2016 05:04 P
--- NOTE | 2016-11-13 15:03 | REP ---
CT angiography of the chest with IV contrast: History: MRSA bacteremia; evaluate aortic graft for nidus of infection. Comparison study September 07, 2016. That prior study showed an Endoleak in this patient status post thoracoabdominal stent graft. CT contrast dose: 100 ml of Isovue [address] findings: Lung window settings demonstrate mild linear fibrotic changes in the lung bases along with a small quantity of right pleural fluid. There is left coronary artery vascular calcification. Great vessel origins are slightly calcific and tortuous, otherwise unremarkable. There is moderate atherosclerotic calcification of the proximal aorta. There is a descending thoracic aortic aneurysm. Above the stent graft, the proximal descending thoracic aorta is somewhat aneurysmally dilated measuring 4.1 cm in AP dimension. There is some mural thrombus along the anterior wall of this portion of the aorta, unchanged from the prior study. The stent graft remains in place unchanged from prior exam. Again noted is an Endoleak with contrast enhancement extending posteriorly to the stent graft outside of the lumen of the stent graft in the stented aneurysm. This extends to the right into what appears to be predominantly a hematoma along the right or medial wall of the descending aorta. The stent graft is larger than it was in August 2016. An area of contrast enhancement is seen outside the stent graft measuring 4.8 x 2.1 x 6.8 cm. The hematoma contain some calcification and is unchanged in size. No new filling defect is seen within the stent graft or elsewhere in the aorta to suggest nidus of infection focally. Exam is otherwise unremarkable. Impression: 1. 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 This has increased in size when compared with the August 2016 prior study. It now measures 4.8 x 2.1 x 6.8 cm as above. 2. Small right pleural effusion. Signed by Tommy Dickinson MD 11/13/2016 05:04 P
[2016-11-13 16:05] VITALS: BP 131/85
--- NOTE | 2016-11-13 18:19 | DS.PDOC ---
Discharge Summary General Date of Admission Nov 09, 2016 at 21:10 Date of Discharge 11/13/2016 Discharge Summary DATE OF ADMISSION: 11/09/2016 DATE OF DISCHARGE: 11/13/2016 PRIMARY CARE PHYSICIAN: Dr. 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 Also found to have large endoleak in the distal thoracic aortic aneurysm outside and posterior to the graft, increased in size from 2 months ago. 1. Severe sepsis secondary to staph aureus bacteremia: Lactate went up to as high as 3.4, but has now normalized. First set of blood cultures grew MSSA in 1 out of 2 bottles. Repeat blood cultures are negative. We will continue the patient on vancomycin and cefepime. The patient has been afebrile until last night when he developed multiple fevers around 100.8; repeat blood cultures were collected this morning and are pending. White count, however, has now normalized. TTE shows preserved EF with grade 1 diastolic dysfunction, as well as trace AR and trivial , mild MR, mod TR, and mild pHTN. It is unable to rule out vegetations on the aortic valve; he will need a COREY. Unfortunately, we do not have ID coverage. CRP is currently increasing and has been around 30 the past 2 days. 2. Hypertension: Continue home Norvasc, Imdur, Lopressor. 3. Hypothyroidism: Continue home Synthroid. 4. Coronary artery disease: Continue home beta cornelia. Patient is not currently on a statin, which should be discussed with his outpatient physicians. The patient is unable to tolerate any antiplatelets secondary to his thrombocytopenia. Continue home zetia. 5. BPH: Continue home Flomax. 6. End-stage renal disease on hemodialysis: Continue home Renvela. We appreciate nephrology's assistance with hemodialysis. 7. Chronic anemia: Secondary to end-stage renal disease: Hemoglobin is currently stable. 8. Chronic thrombocytopenia: Platelets appear to currently be at baseline. The patient cannot tolerate heparin or the OPTi flux polysulfone dialyzer. 9. TTP of RUQ on exam: LFTS normal; RUQ US shows only mild gallbladder wall thickening and right renal cysts. 10. 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 CTA reveals that the leak has increased since August 2016 from 2.5x1.2x2.5 cm to 4.8x2.1x6.8 cm. I have spoken to [facility], and they have agreed to accept the patient for vascular surgery services, which we do not have here. I suspect that this may explain the vague back and side pain he has been intermittently complaining of. DVT prophylaxis: Teds and SCDs PHYSICAL EXAMINATION ON DISCHARGE: VITAL SIGNS: Vital Sign - Last 24 Hours 11/12/16 11/12/16 11/12/16 11/13/16 20:00 20:00 23:59 04:00 Temp 99.5 100.5 100.8 Pulse 82 94 100 Resp 20 18 20 B/P 107/53 133/60 109/57 Pulse Ox 92 94 94 O2 Delivery Room Air Room Air Room Air Room Air 11/13/16 11/13/16 11/13/16 11/13/16 08:00 08:30 10:09 10:10 Temp 97.8 Pulse 100 100 Resp 20 B/P 129/57 129/57 129/57 Pulse Ox 95 O2 Delivery Room Air Room Air 11/13/16 11/13/16 11/13/16 11/13/16 10:10 11:57 12:00 16:05 Temp 98.8 98.7 Pulse 100 83 77 Resp 18 B/P 129/57 114/52 131/85 Pulse Ox 96 95 O2 Delivery Room Air Room Air Room Air General: Awake, alert, no acute distress HEENT: Normocephalic, atraumatic, extraocular movements intact CV: Regular rate and rhythm Lungs: Clear to auscultation bilaterally, no wheeze Abd: Soft, nondistended, TTP of RUQ and epigastrum Extremities: No edema Neuro: Alert and oriented 3, normal speech Psych: normal mood and affect DISPOSITION: Transfer to [facility] under the care of Dr. Alamo for consultation by vascular surgery and infectious disease services Patient was seen and examined by me on the day of discharge, and I spent a total time of greater than 30 minutes on this discharge. Vital Signs/I&Os Vital Signs Date Time Temp Pulse Resp B/P Pulse Ox O2 Delivery O2 Flow Rate FiO2 11/13/16 16:05 98.7 77 18 131/85 95 Room Air I&O- Last 24 Hours up to 6 AM 11/13/16 05:59 Intake Total 960 ml Output Total 2175 ml Balance -1215 ml Laboratory Data Labs 24H Laboratory Tests 2 11/13/16 05:37: Blood Urea Nitrogen 42H, Creatinine 5.27H, Sodium Level 140, Potassium Level 4.1 , Chloride Level 105, Carbon Dioxide Level 25, Calcium Level 8.5L, Phosphorus Level 3.3#, Aspartate Amino Transf (AST/SGOT) 9L, Alanine Aminotransferase (ALT/ SGPT) 11L, Alkaline Phosphatase 71, Total Bilirubin 0.4, Total Protein 6.9, Albumin 2.3L, Albumin/Globulin Ratio 0.50L, Anion Gap 10, C-Reactive Protein, Quantitative 29.40H, Glomerular Filtration Rate 11.2L, Magnesium Level 2.4 CBC/BMP Laboratory Tests 11/13/16 05:37 Calcium Level 8.5 L, Phosphorus Level 3.3 #, Aspartate Amino Transf (AST/SGOT) 9 L, Alanine Aminotransferase (ALT/SGPT) 11 L, Alkaline Phosphatase 71, Total Bilirubin 0.4, Total Protein 6.9, Albumin 2.3 L, Red Blood Count 2.87 L, Mean Corpuscular Volume 101.1 H, Mean Corpuscular Hemoglobin 32.4, Mean Corpuscular Hemoglobin Concent 32.1, Red Cell Distribution Width 15.7 H Microbiology Microbiology 11/13/16 Blood Culture, Received Pending 11/13/16 Blood Culture, Received Pending 11/10/16 Blood Culture - Preliminary, Resulted No Growth after 72 hours. All specime... 11/10/16 Blood Culture - Preliminary, Resulted No Growth after 72 hours. All specime... 11/09/16 Blood Culture - Final, Complete Staphylococcus Aureus 11/09/16 Blood Culture - Preliminary, Resulted No Growth after 72 hours. All specime... 11/09/16 Respiratory Virus Panel (PCR) (CATHERINE) - Final, Complete 11/09/16 Influenza Virus Type A Antigen - Final, Complete 11/09/16 Influenza Virus Type B Antigen - Final, Complete Discharge Medications Scheduled Amlodipine Besylate (Amlodipine Besylate) 5 Mg Tab 5 MG PO DAILY (Reported) Cholecalciferol (Vitamin D) 1,000 Unit Tab 1,000 UNIT PO DAILY (Reported) Ezetimibe (Zetia) 10 Mg Tab 10 MG PO DAILY (Reported) Febuxostat (Uloric) 40 Mg Tab 40 MG PO DAILY (Reported) Isosorbide Mononitrate (Isosorbide Mononitrate ER) 30 Mg Tab 30 MG PO DAILY ( Reported) Levothyroxine Sodium (Synthroid) 25 Mcg Tab 25 MCG PO DAILY (Reported) Metoprolol Tartrate (Metoprolol Tartrate) 100 Mg Tab 100 MG PO BID (Reported) Sevelamer Carbonate (Renvela) 800 Mg Tab 800 MG PO WM (Reported) Tamsulosin Hydrochloride (Flomax) 0.4 Mg Cap 0.4 MG PO DAILY (Reported) Scheduled PRN Ibuprofen (Ibuprofen) 800 Mg Tab 800 MG PO TID PRN PRN PAIN (Reported) Allergies Coded Allergies: Heparin (Verified Adverse Reaction, Intermediate, bleeding, 02/23/16) Patient with bleeding tendency, noted to have mildly elvated Heparin induced antibody, would avoid in future if possible Uncoded Allergies: [id number] Optiflux polysulfone Dialyzer (Allergy, Intermediate, thrombocytopenia and hemoptysis, 09/07/16) ADRIANA MOREJON Nov 13, 2016 18:19
[2016-11-13] MEDS ORDERED: ISOS30TA4 PO (18:23)
[2016-11-13] MEDS ORDERED: AMLO5TAB2 PO (18:23)
[2016-11-13] MEDS ORDERED: RENV2TAB PO (18:23)
[2016-11-13] MEDS ORDERED: EZET10TA PO (18:23)
[2016-11-13] MEDS ORDERED: FEBU40TA PO (18:23)
[2016-11-13] MEDS ORDERED: LEVO25TA5 PO (18:23)
[2016-11-13] MEDS ORDERED: DARB300VL IV (18:23)
[2016-11-13] MEDS ORDERED: LOPR1TAB7 PO (18:23)
[2016-11-13] MEDS ORDERED: SENN1TAB2 PO (18:23)
[2016-11-13] MEDS ORDERED: ACET65TA PO (18:23)
[2016-11-13] MEDS ORDERED: ONDA4VLL IV (18:23)
[2016-11-13] MEDS ORDERED: FLOM5CAP PO (18:24)
[2016-11-13] MEDS ORDERED: VITAD1000T PO (18:24)
--- NOTE | 2016-11-13 19:17 | IPNPDOC ---
Text Note Date of Service The patient was seen on 11/13/16. NOTE The patient is refusing transfer to [facility]. He understands that we are incapable of treating his enlarging endoleak and that it will only get worse. He understands that it will eventually kill him and he is willing to accept these risks. He would like to remain here and be treated for the bacteremia. He has expressed his wish to be DNR/DNI, which we will honor. We also will honor his desire to not have a central line or pressors. VS,Fishbone, I+O VS, Fishbone, I+O Laboratory Tests 11/13/16 05:37 Calcium Level 8.5 L, Phosphorus Level 3.3 #, Aspartate Amino Transf (AST/SGOT) 9 L, Alanine Aminotransferase (ALT/SGPT) 11 L, Alkaline Phosphatase 71, Total Bilirubin 0.4, Total Protein 6.9, Albumin 2.3 L, Red Blood Count 2.87 L, Mean Corpuscular Volume 101.1 H, Mean Corpuscular Hemoglobin 32.4, Mean Corpuscular Hemoglobin Concent 32.1, Red Cell Distribution Width 15.7 H Vital Signs Date Time Temp Pulse Resp B/P Pulse Ox O2 Delivery O2 Flow Rate FiO2 11/13/16 16:05 98.7 77 18 131/85 95 Room Air I&O- Last 24 Hours up to 6 AM 11/13/16 05:59 Intake Total 960 ml Output Total 2175 ml Balance -1215 ml ADRIANA MOREJON Nov 13, 2016 19:17
[2016-11-13 19:45] VITALS: BP 145/66
[2016-11-13] MEDS: CEFEPIME HCL 0.5 GM in D5W MINI-BAG PLUS 50 ML IV SCH (21:12)
--- NOTE | 2016-11-13 22:17 | IPN ---
DATE: 11/13/2016 Mr. Gonzales is seen this morning at his bedside. He is sitting in the chair at the time of my visit. He denies any dyspnea, chest pain, nausea or vomiting. His appetite has been poor, but no abdominal pain or diarrhea reported. He did have fever last evening and Dr. Vanessa Tucker discussed his condition with me this morning. I recommended CT angiogram with intravenous (IV) contrast to look at his thoracic aortic graft for possible infection and leak. The patient has been receiving IV antibiotics and all other sources of infection have been ruled out. He did have one positive blood culture for Staphylococcus aureus and has been on antibiotics. CT angiogram and abdominal CT has been done, which did show endovascular leak in the distal thoracic aortic aneurysm outside and posterior to the stent graft. He also had a small right pleural effusion. On physical examination, temperature 97.8 degrees Fahrenheit, heart rate 100 per minute and respiratory rate 20 per minute. Blood pressure 129/57 mmHg and oxygen saturation 95% on room air. Head is atraumatic. Ears, nose and throat are unremarkable. Neck is supple and without jugular venous distention (JVD) or thyroid enlargement. Heart sounds tachycardiac. Lungs with slightly diminished breath sounds at left base. Abdomen soft and nontender. Bowel sounds are normal. Extremities have no cyanosis or clubbing. Skin has no rash or ulcers. Neurologically he is awake, alert and oriented x3. Today's laboratories show WBC count 8.7, hemoglobin 9.3 and hematocrit 29.0. Platelets 117. Sodium 140 and potassium 4.1. BUN 42 and creatinine 5.27. Calcium level 8.5 and phosphorus 3.3. His C-reactive protein is still high at 29.4. PROBLEMS 1. End-stage renal disease. Patient is regularly dialyzed on Friday, and Friday schedule. He will be scheduled for next hemodialysis tomorrow, if he is still around here at [facility]. There is no need for emergent dialysis today after dye contrast studies, as his volume status is well-compensated. 2. Endovascular leak from thoracic aortic aneurysm endovascular graft. Hospitalist service has already requested for the transfer to [facility] where patient had his graft repair done. I am concerned about possibility of infection which is causing the leak. He remains on broad-spectrum antibiotics for Staphylococcus aureus. 3. Anemia. His anemia is stable at this point and we will continue to monitor closely. He did have initial drop in hemoglobin; however, it has now stabilized. 4. Thrombocytopenia. This is chronic and stable. No intervention is indicated at this point. DISPOSITION: Patient is likely to be transferred to [facility] and I agree with the transfer due to need for vascular surgery intervention.
[2016-11-13 23:55] VITALS: BP 131/63
[2016-11-14] VITALS (7 sets, daily range): BP systolic 88–157; BP diastolic 44–70
[2016-11-14] MEDS: SLF 3 ML SYR IV SCH ×3 (05:10→21:41)
[2016-11-14] MEDS: LEVOTHYROXINE 0.025 MG TAB (25 MCG) PO SCH (05:10)
[2016-11-14] MEDS: ACETAMINOPHEN TAB 650MG DOSE (2X325MG) PO PRN ×4 (05:10→20:26)
[2016-11-14 05:48] LABS: MEAN CORPUSCULAR HEMOGLOBIN 31.2 pg (27.0-33.0); MEAN CORPUSCULAR HGB CONC 30.8 g/dl (32.0-36.5); MEAN CORPUSCULAR VOLUME 101.5 fl (80.0-96.0); RED CELL DISTRIBUTION WIDTH 15.5 % (11.5-14.5); WHITE BLOOD COUNT 9.1 K/mm3 (4.0-10.0)
[2016-11-14 06:02] LABS: ALBUMIN 2.2 GM/DL (3.2-5.2); CALCIUM LEVEL 8.3 MG/DL (8.8-10.2); CREATININE FOR GFR 6.74 MG/DL (0.70-1.30); GLOMERULAR FILTRATION RATE 8.4 (>35); MAGNESIUM LEVEL 2.5 MG/DL (1.8-2.4); PHOSPHORUS LEVEL 4.1 MG/DL (2.5-4.9)
[2016-11-14] MEDS: (RENVELA) SEVELAMER **CARBONate** 800 MG TAB PO SCH ×3 (08:00→17:13)
[2016-11-14] MEDS: SENOKOT S TAB PO SCH ×2 (08:30→21:41)
[2016-11-14] MEDS: METOPROLOL TARTRATE 100 MG TAB PO SCH ×2 (09:00→21:00)
--- NOTE | 2016-11-14 11:16 | IPN ---
DATE: 11/14/2016 Mr. Gibson is seen this morning on his bedside during hemodialysis. We had a plan to transfer him to [facility] yesterday due to a leak around his abdominal aortic endovascular graft repair. The patient also had a positive blood culture and is currently being treated with antibiotics. We suspect that his thoracic aortic graft is infected, which is the cause of the periaortic leak. The patient declined a transfer and did not wish any surgery. He has made himself DO NOT RESUSCITATE (DNR). His family was present when the hospitalist discussed this issue and they are aware that the patient has declined intervention. I have talked to him again this morning and explained his prognosis to him and he continues to decline a transfer or any surgical intervention. He states that he is ready to if his time has arrived and he does not want cut anymore. He also states that he has already given directions to his family about his arrangements, etc. On physical exam, his temperature is 99.1 degrees Fahrenheit, heart rate 82 per minute, respiratory rate 18 per minute. Blood pressure 120/57 mmHg and oxygen saturation 94% on room air. Head is atraumatic. Ears, nose and throat are unremarkable. Neck is supple and without jugular venous distention or thyroid enlargement. Heart sounds are regular. Lungs clear to auscultation. Abdomen is soft and nontender. Bowel sounds are present. There is no palpable organomegaly. Extremities have no cyanosis or clubbing. All his repeat blood cultures are negative so far. His other labs drawn from this morning showed a WBC count of 9.1, hemoglobin 9.0, and hematocrit 29.3. Platelets are up to 172. Sodium 134 and potassium 4.0. BUN 57 and creatinine 6.74. C-reactive protein is improved slightly to 24.10. PROBLEMS: 1. End stage renal disease. Patient is being dialyzed today. We are not using any heparin due to chronic thrombocytopenia and leaking thoracic aortic aneurysm. He is tolerating dialysis treatment very well. 2. Staphylococcus bacteremia. Likely source is infected thoracic aortic endovascular graft. The patient has declined any surgery or even transfer to [facility]. He remains on intravenous antibiotics and we will continue with the same. He is currently DNR status. 3. Anemia. At present, his anemia is stable and will continue to treat him with Aranesp during dialysis. No acute intervention is indicated. 4. Hypertension. Blood pressure is reasonably well controlled on current medications. 5. Hyperparathyroidism. He will remain on chronic medications including Renvela and calcitriol is currently on hold. 6. Disposition. At this time the patient has declined a transfer to [facility]. We will continue to treat him and I have explained to him about his prognosis in detail.
[2016-11-14] MEDS ORDERED: MIDAZOLAM INJ 2 MG/2 ML VIAL (J2250) As Ordered ONE (14:10)
[2016-11-14] MEDS: NAFCILLIN SOD 2 GM in D5W MINI-BAG PLUS 100 ML IV SCH ×3 (15:26→23:30)
[2016-11-14] MEDS ORDERED: MORPHINE 2 MG/ML 1ML SYRINGE IV ONE (16:00)
--- NOTE | 2016-11-14 16:08 | IPNPDOC ---
Date Seen The patient was seen on 11/13/16. Please note, that this is a late entry. The patient was seen on 11/13/2016, but the plan at that time was for him to be transferred to [facility]. Discharge summary was completed yesterday, attesting to the face-to- face evaluation of 11/13/2016. Since the patient has declined transfer to [facility], this progress note will serve as the progress note for 11/13/2016 to be used for billing purposes for that date. Progress Note Hospitalist Progress Note Subjective: The patient continues to report intermittent back pain Objective: Physical Exam: Vitals: Vital Sign - Last 24 Hours 11/12/16 11/12/16 11/12/16 11/13/16 20:00 20:00 23:59 04:00 Temp 99.5 100.5 100.8 Pulse 82 94 100 Resp 20 18 20 B/P 107/53 133/60 109/57 Pulse Ox 92 94 94 O2 Delivery Room Air Room Air Room Air Room Air 11/13/16 11/13/16 11/13/16 11/13/16 08:00 08:30 10:09 10:10 Temp 97.8 Pulse 100 100 Resp 20 B/P 129/57 129/57 129/57 Pulse Ox 95 O2 Delivery Room Air Room Air 11/13/16 11/13/16 11/13/16 11/13/16 10:10 11:57 12:00 16:05 Temp 98.8 98.7 Pulse 100 83 77 Resp 18 18 B/P 129/57 114/52 131/85 Pulse Ox 96 95 O2 Delivery Room Air Room Air Room Air General: Awake, alert, no acute distress HEENT: Normocephalic, atraumatic, extraocular movements intact CV: Regular rate and rhythm Lungs: Clear to auscultation bilaterally, no wheeze Abd: Soft, nondistended, TTP of RUQ and epigastrum Extremities: No edema Neuro: Alert and oriented 3, normal speech Psych: normal mood and affect Labs and Imaging: Laboratory Tests 11/13/16 05:37 Calcium Level 8.5 L, Phosphorus Level 3.3 #, Aspartate Amino Transf (AST/SGOT) 9 L, Alanine Aminotransferase (ALT/SGPT) 11 L, Alkaline Phosphatase 71, Total Bilirubin 0.4, Total Protein 6.9, Albumin 2.3 L, Red Blood Count 2.87 L, Mean Corpuscular Volume 101.1 H, Mean Corpuscular Hemoglobin 32.4, Mean Corpuscular Hemoglobin Concent 32.1, Red Cell Distribution Width 15.7 H Assessment and Plan: 80-year-old male with end-stage renal disease on hemodialysis, 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 Also found to have large endoleak in the distal thoracic aortic aneurysm outside and posterior to the graft, increased in size from 2 months ago. 1. Severe sepsis secondary to staph aureus bacteremia: Lactate went up to as high as 3.4, but has now normalized. First set of blood cultures grew MSSA in 1 out of 2 bottles. Repeat blood cultures are negative. We will continue the patient on vancomycin and cefepime. The patient has been afebrile until last night when he developed multiple fevers around 100.8; repeat blood cultures were collected this morning and are pending. White count, however, has now normalized. TTE shows preserved EF with grade 1 diastolic dysfunction, as well as trace AR and trivial , mild MR, mod TR, and mild pHTN. It is unable to rule out vegetations on the aortic valve; he will need a COREY. Unfortunately, we do not have ID coverage. CRP is currently increasing and has been around 30 the past 2 days. 2. Hypertension: Continue home Norvasc, Imdur, Lopressor. 3. Hypothyroidism: Continue home Synthroid. 4. Coronary artery disease: Continue home beta cornelia. Patient is not currently on a statin, which should be discussed with his outpatient physicians. The patient is unable to tolerate any antiplatelets secondary to his thrombocytopenia. Continue home zetia. 5. BPH: Continue home Flomax. 6. End-stage renal disease on hemodialysis: Continue home Renvela. We appreciate nephrology's assistance with hemodialysis. 7. Chronic anemia: Secondary to end-stage renal disease: Hemoglobin is currently stable. 8. Chronic thrombocytopenia: Platelets appear to currently be at baseline. The patient cannot tolerate heparin or the OPTi flux polysulfone dialyzer. 9. TTP of RUQ on exam: LFTS normal; RUQ US shows only mild gallbladder wall thickening and right renal cysts. 10. 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 CTA reveals that the leak has increased since August 2016 from 2.5x1.2x2.5 cm to 4.8x2.1x6.8 cm. I have spoken to [facility] on 11/13, and they have agreed to accept the patient for vascular surgery services, which we do not have here. I suspect that this may explain the vague back and side pain he has been intermittently complaining of. Unfortunately, the patient has refused transfer to [facility]. He understands that we are incapable of treating his enlarging endoleak and that it will only get worse. He understands that it will eventually kill him and he is willing to accept these risks. He would like to remain here and be treated for the bacteremia. He says he does not want to go to [place] again and he does not want to have any more surgeries. DVT prophylaxis: Teds and SCDs He has expressed his wish to be DNR/DNI, which we will honor. We also will honor his desire to not have a central line or pressors. VS, I&O, 24H, Fishbone Vital Signs/I&O Vital Signs Date Time Temp Pulse Resp B/P Pulse Ox O2 Delivery O2 Flow Rate FiO2 11/14/16 15:54 Room Air 11/14/16 15:20 101.3 91 20 157/70 96 I&O- Last 24 Hours up to 6 AM 11/14/16 06:00 Intake Total 780 ml Output Total 0 ml Balance 780 ml Laboratory Data 24H LABS Laboratory Tests 2 11/14/16 05:20: Albumin 2.2L, Blood Urea Nitrogen 57H, Creatinine 6.74H, Sodium Level 134L, Potassium Level 4.0, Chloride Level 99, Carbon Dioxide Level 25, Anion Gap 10, C -Reactive Protein, Quantitative 24.10H, Calcium Level 8.3L, Glomerular Filtration Rate 8.4L, Magnesium Level 2.5H, Phosphorus Level 4.1# CBC/BMP Laboratory Tests 11/14/16 05:20 Anion Gap 10, Red Blood Count 2.89 L, Mean Corpuscular Volume 101.5 H, Mean Corpuscular Hemoglobin 31.2, Mean Corpuscular Hemoglobin Concent 30.8 L, Red Cell Distribution Width 15.5 H Microbiology Microbiology 11/13/16 Blood Culture - Preliminary, Resulted No growth after 24 hours . All specim... 11/13/16 Blood Culture - Preliminary, Resulted No growth after 24 hours . All specim... 11/10/16 Blood Culture - Preliminary, Resulted No Growth after 72 hours. All specime... 11/10/16 Blood Culture - Preliminary, Resulted No Growth after 72 hours. All specime... 11/09/16 Blood Culture - Final, Complete Staphylococcus Aureus 11/09/16 Blood Culture - Final, Complete NO GROWTH AFTER 5 DAYS 11/09/16 Respiratory Virus Panel (PCR) ([facility]) - Final, Complete 11/09/16 Influenza Virus Type A Antigen - Final, Complete 11/09/16 Influenza Virus Type B Antigen - Final, Complete ADRIANA MOREJON Nov 14, 2016 16:08
--- NOTE | 2016-11-14 16:14 | T-ECHO ---
DATE OF PROCEDURE: 11/14/2016 REFERRING PHYSICIAN: Dr. Vanessa Tucker INDICATION: Methicillin-sensitive Staphylococcus aureus bacteremia. PREPROCEDURE DIAGNOSIS: Methicillin-sensitive Staphylococcus aureus bacteremia. POSTPROCEDURE DIAGNOSIS: Methicillin-sensitive Staphylococcus bacteremia, no vegetations on any of the cardiac valves, distal descending thoracic aorta dissection flap. FINDINGS: Methicillin-sensitive Staphylococcus bacteremia, no vegetations on any of the cardiac valves, distal descending thoracic aorta dissection flap. PROCEDURE PERFORMED: Transesophageal echocardiogram. PROCEDURE PERFORMED BY: Chuck Adame MD FINISH MACHINE TENDER: None. LIGHT CONSCIOUS SEDATION: Midazolam 3 mg IV. COMPLICATIONS: None. PROCEDURE DESCRIPTION: Rhythm appeared to be sinus. The patient received Cetacaine spray to the back of the pharynx. He received a total of 3 mg of midazolam IV for light conscious sedation. The patient tolerated the procedure well without any immediate complications. Esophageal intubation was accomplished without difficulty using a Amadeo phased-array two-dimensional multiplane transesophageal echocardiogram probe. The left ventricle appeared normal in size and systolic function. Right ventricle appeared to be dilated with normal systolic function. There was partial flattening of the interventricular septum, suggestive of pressure overload of the right ventricle. Left atrial appendage and left atrium appeared to be enlarged. Atrial septum was intact anatomically and by color flow Doppler. Aortic valve was 3-cuspid with mild focal thickening and focal calcific deposits. No aortic stenosis. Trace aortic regurgitation. Mitral valve appeared normal and without vegetations. Very mild mitral regurgitation. Pulmonic valve was normal. Mild pulmonic regurgitation. Tricuspid leaflets appeared normal but were moderately difficult to visualize. No vegetations involving the mitral valve. No pericardial effusion. The distal portion of the descending thoracic aorta showed a dissection flap with color flow appearing in the true lumen. The distal aortic arch and proximal portion of the descending thoracic aorta showed mild atheroma. CONCLUSIONS: 1. No vegetations seen on any of the cardiac valves. 2. Dissection flap involving the distal portion of the descending thoracic aorta. 3. Normal left ventricle systolic function. 4. Right ventricle dilation. Partial flattening of the ventricular septum, suggestive of pressure overload of the right ventricle. 5. Mild aortic valve sclerosis of the 3-cuspid aortic valve. Trace aortic regurgitation. 6. Mild mitral annular calcification. Very mild mitral regurgitation. Copy To: Dr. Vanessa Adame
[2016-11-14] MEDS: FEBUXOSTAT 40 MG TABLET (ULORIC) PO SCH (16:23)
[2016-11-14] MEDS: TAMSULOSIN 0.4 MG CAP PO SCH (16:24)
[2016-11-14] MEDS: VITAMIN D 1,000 INTERNATIONAL UNITS TABLET PO SCH (16:24)
[2016-11-14] MEDS: EZETIMIBE 10 MG TAB (ZETIA) PO SCH (16:24)
[2016-11-14] MEDS: amLODIPine 5 MG TAB PO SCH (16:26)
[2016-11-14] MEDS: ISOSORBIDE MON. (IMDUR) 30 MG XR TAB PO SCH (16:27)
--- NOTE | 2016-11-14 16:33 | IPNPDOC ---
Date Seen The patient was seen on 11/14/16. Progress Note Hospitalist Progress Note Subjective: The patient continues to report intermittent back pain; I saw him while in hemodialysis Objective: Physical Exam: Vitals: Vital Sign - Last 24 Hours 11/13/16 11/13/16 11/13/16 11/13/16 19:45 21:12 21:26 23:55 Temp 99.3 99.1 Pulse 86 86 75 Resp 18 18 B/P 145/66 145/66 131/63 Pulse Ox 96 93 O2 Delivery Room Air Room Air Room Air 11/14/16 11/14/16 11/14/16 11/14/16 04:57 08:00 08:01 08:12 Temp 99.2 99.1 Pulse 83 82 Resp 18 18 B/P 156/70 120/57 Pulse Ox 92 94 O2 Delivery Room Air Room Air Room Air Room Air 11/14/16 11/14/16 11/14/16 11/14/16 13:22 14:29 14:34 14:40 Temp 99.5 99.5 Pulse 101 101 117 103 Resp 18 B/P 150/67 150/67 149/68 133/79 Pulse Ox 95 O2 Delivery Room Air 11/14/16 11/14/16 11/14/16 14:46 15:20 15:54 Temp 101.3 Pulse 98 91 Resp 18 20 B/P 149/65 157/70 Pulse Ox 96 O2 Delivery Room Air Room Air General: Awake, alert, no acute distress HEENT: Normocephalic, atraumatic, extraocular movements intact CV: Regular rate and rhythm Lungs: Clear to auscultation bilaterally, no wheeze Abd: Soft, nondistended, nontender Extremities: No edema Neuro: Alert and oriented 3, normal speech Psych: normal mood and affect Labs and Imaging: Laboratory Tests 11/14/16 05:20 Anion Gap 10, Red Blood Count 2.89 L, Mean Corpuscular Volume 101.5 H, Mean Corpuscular Hemoglobin 31.2, Mean Corpuscular Hemoglobin Concent 30.8 L, Red Cell Distribution Width 15.5 H Assessment and Plan: 80-year-old male with end-stage renal disease on hemodialysis, 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 Also found to have large endoleak in the distal thoracic aortic aneurysm outside and posterior to the graft, increased in size from 2 months ago. 1. Severe sepsis secondary to staph aureus bacteremia: Lactate went up to as high as 3.4, but has now normalized. First set of blood cultures grew MSSA in 1 out of 2 bottles. Repeat blood cultures are negative. The patient had been afebrile until night of 11/12 when he developed multiple fevers around 100.8; repeat blood cultures were collected and thus far are negative. White count has now normalized. TTE shows preserved EF with grade 1 diastolic dysfunction, as well as trace AR and trivial , mild MR, mod TR, and mild pHTN. COREY does not show any evidence of vegetation. Unfortunately, we do not have ID coverage this week. CRP had been steadily increasing, but today has started to trend down. I suspect that the source of his bacteremia is his leaking graft. Change from vancomycin to nafcillin. Continue cefepime. 2. Hypertension: Continue home Norvasc, Imdur, Lopressor. 3. Hypothyroidism: Continue home Synthroid. 4. Coronary artery disease: Continue home beta cornelia. Patient is not currently on a statin, which should be discussed with his outpatient physicians. The patient is unable to tolerate any antiplatelets secondary to his thrombocytopenia. Continue home zetia. 5. BPH: Continue home Flomax. 6. End-stage renal disease on hemodialysis: Continue home Renvela. We appreciate nephrology's assistance with hemodialysis. 7. Chronic anemia: Secondary to end-stage renal disease: Hemoglobin is currently stable. 8. Chronic thrombocytopenia: Platelets appear to currently be at baseline. The patient cannot tolerate heparin or the OPTi flux polysulfone dialyzer. 9. TTP of RUQ on exam: LFTS normal; RUQ US shows only mild gallbladder wall thickening and right renal cysts. 10. 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 CTA reveals that the leak has increased since August 2016 from 2.5x1.2x2.5 cm to 4.8x2.1x6.8 cm. I have spoken to [facility] on 11/13, and they have agreed to accept the patient for vascular surgery services, which we do not have here. I suspect that this may explain the vague back and side pain he has been intermittently complaining of. Unfortunately, the patient has refused transfer to [facility]. He understands that we are incapable of treating his enlarging endoleak and that it will only get worse. He understands that it will eventually kill him and he is willing to accept these risks. He would like to remain here and be treated for the bacteremia. He says he does not want to go to [place] again and he does not want to have any more surgeries. DVT prophylaxis: Teds and SCDs He has expressed his wish to be DNR/DNI, which we will honor. We also will honor his desire to not have a central line or pressors. VS, I&O, 24H, Fishbone Vital Signs/I&O Vital Signs Date Time Temp Pulse Resp B/P Pulse Ox O2 Delivery O2 Flow Rate FiO2 11/14/16 15:54 Room Air 11/14/16 15:20 101.3 91 20 157/70 96 I&O- Last 24 Hours up to 6 AM 11/14/16 06:00 Intake Total 780 ml Output Total 0 ml Balance 780 ml Laboratory Data 24H LABS Laboratory Tests 2 11/14/16 05:20: Albumin 2.2L, Blood Urea Nitrogen 57H, Creatinine 6.74H, Sodium Level 134L, Potassium Level 4.0, Chloride Level 99, Carbon Dioxide Level 25, Anion Gap 10, C -Reactive Protein, Quantitative 24.10H, Calcium Level 8.3L, Glomerular Filtration Rate 8.4L, Magnesium Level 2.5H, Phosphorus Level 4.1# CBC/BMP Laboratory Tests 11/14/16 05:20 Anion Gap 10, Red Blood Count 2.89 L, Mean Corpuscular Volume 101.5 H, Mean Corpuscular Hemoglobin 31.2, Mean Corpuscular Hemoglobin Concent 30.8 L, Red Cell Distribution Width 15.5 H Microbiology Microbiology 11/13/16 Blood Culture - Preliminary, Resulted No growth after 24 hours . All specim... 11/13/16 Blood Culture - Preliminary, Resulted No growth after 24 hours . All specim... 11/10/16 Blood Culture - Preliminary, Resulted No Growth after 72 hours. All specime... 11/10/16 Blood Culture - Preliminary, Resulted No Growth after 72 hours. All specime... 11/09/16 Blood Culture - Final, Complete Staphylococcus Aureus 11/09/16 Blood Culture - Final, Complete NO GROWTH AFTER 5 DAYS 11/09/16 Respiratory Virus Panel (PCR) ([facility]) - Final, Complete 11/09/16 Influenza Virus Type A Antigen - Final, Complete 11/09/16 Influenza Virus Type B Antigen - Final, Complete ADRIANA MOREJON Nov 14, 2016 16:33
[2016-11-14] MEDS: CEFEPIME HCL 0.5 GM in D5W MINI-BAG PLUS 50 ML IV SCH (21:41)
[2016-11-15] MEDS: NAFCILLIN SOD 2 GM in D5W MINI-BAG PLUS 100 ML IV SCH ×2 (03:06→06:16)
[2016-11-15 04:00] VITALS: BP 93/52
[2016-11-15 06:05] LABS: MEAN CORPUSCULAR HEMOGLOBIN 31.9 pg (27.0-33.0); MEAN CORPUSCULAR VOLUME 99.8 fl (80.0-96.0); RED CELL DISTRIBUTION WIDTH 15.5 % (11.5-14.5); WHITE BLOOD COUNT 7.6 K/mm3 (4.0-10.0)
[2016-11-15] MEDS: SLF 3 ML SYR IV SCH ×3 (06:16→22:00)
[2016-11-15] MEDS: LEVOTHYROXINE 0.025 MG TAB (25 MCG) PO SCH (06:17)
[2016-11-15] MEDS: ACETAMINOPHEN TAB 650MG DOSE (2X325MG) PO PRN ×2 (06:17→12:49)
[2016-11-15 06:30] LABS: CALCIUM LEVEL 8.1 MG/DL (8.8-10.2); CREATININE FOR GFR 4.72 MG/DL (0.70-1.30); GLOMERULAR FILTRATION RATE 12.7 (>35); MAGNESIUM LEVEL 2.4 MG/DL (1.8-2.4); PHOSPHORUS LEVEL 3.7 MG/DL (2.5-4.9); POTASSIUM SERUM 3.4 MEQ/L (3.5-5.1)
[2016-11-15 07:35] VITALS: BP 121/79
[2016-11-15] MEDS: (RENVELA) SEVELAMER **CARBONate** 800 MG TAB PO SCH ×3 (07:55→17:30)
[2016-11-15] MEDS: SENOKOT S TAB PO SCH ×2 (08:11→20:23)
[2016-11-15] MEDS: FEBUXOSTAT 40 MG TABLET (ULORIC) PO SCH (08:11)
[2016-11-15] MEDS: TAMSULOSIN 0.4 MG CAP PO SCH (08:12)
[2016-11-15] MEDS: METOPROLOL TARTRATE 100 MG TAB PO SCH ×2 (08:12→20:23)
[2016-11-15] MEDS: VITAMIN D 1,000 INTERNATIONAL UNITS TABLET PO SCH (08:19)
[2016-11-15] MEDS: EZETIMIBE 10 MG TAB (ZETIA) PO SCH (08:19)
[2016-11-15] MEDS ORDERED: VANCOMYCIN HCL 1,000 MG, VIAL MATE ADAPTER 1 EACH in D5W 250 ML IV ONE (08:30)
[2016-11-15] MEDS: amLODIPine 5 MG TAB PO SCH (09:00)
[2016-11-15 12:00] VITALS: BP 106/54
--- NOTE | 2016-11-15 13:07 | IPN ---
DATE: 11/15/2016 Mr. Gonzales is seen this morning on his bedside. He remains in the bed. He reports some abdominal pain and nausea and took some Tylenol this morning. He denies any dyspnea or chest pain. He did have dialysis yesterday and was somewhat hypotensive after dialysis. His antihypertensives have been on hold. The patient has leaking abdominal and thoracic aortic aneurysm following his endovascular aneurysm repair. He had one positive blood culture for Staph aureus for which we are treating with IV antibiotics. The patient has declined a transfer to [place] and has declined any surgical intervention. He has made himself DO NOT RESUSCITATE (DNR). His family is very well aware of the condition; however, the patient is not willing to change his mind and does not want any aggressive measures. He does want to continue dialysis at this point. On physical examination, temperature 97.2 degrees Fahrenheit, heart rate 88 per minute and respiratory rate 20 per minute. Blood pressure 110/55 mmHg and oxygen saturation 92% on room air. Head is atraumatic. Ears, nose and throat are unremarkable. Neck is supple and without jugular venous distention (JVD) or thyroid enlargement. Heart sounds are regular. Lungs with slightly diminished breath sounds at bases. Abdomen soft with minimal tenderness in the epigastric area. Bowel sounds are present. Extremities have no cyanosis or clubbing. Neurologically he is awake, alert and oriented times three. Today's labs show WBC count 7.6, hemoglobin 8.6 and hematocrit 26.9. Platelets 189. Sodium 137 and potassium 3.4. BUN 29 and creatinine 4.72. Calcium level 8.1 and phosphorus 3.7. C-reactive protein is down to 22.3. His last vancomycin level was checked on 11/10 and was 16.8. PROBLEMS: 1. End-stage renal disease. The patient underwent his last hemodialysis yesterday which he tolerated very well. He was somewhat hypotensive after dialysis. We will continue to monitor closely and plan on dialyzing him again tomorrow morning. 2. Staph aureus bacteremia. The patient has been on broad-spectrum antibiotics including vancomycin after dialysis. We can probably stop his nafcillin and cefepime and just keep him on vancomycin 1 gram after each hemodialysis. We will check his vancomycin level again tomorrow morning. 3. Infected aortic aneurysm graft. The patient has declined any surgical intervention. He does have a leak around the endovascular graft which is most likely the result of infection. At present, we will continue with antibiotics as the patient does not wish any surgical intervention. He is currently DNR. 4. Anemia with acute blood loss. The patient is currently being monitored and we will give him Aranesp during dialysis. There is no emergent need for a transfusion. He gets Aranesp 300 mcg once a week, which will be continued. 5. Hypotension. His blood pressure is somewhat low. We will stop his amlodipine and also isosorbide dinitrate. We will continue with metoprolol with hold parameters due to tachycardia when he is not on beta cornelia. 6. Disposition. The patient understands that his prognosis is poor. He is very high risk for sudden rupture of his aortic aneurysm, however, he does not wish any aggressive measures. His family is aware of the situation.
--- NOTE | 2016-11-15 14:11 | IPNPDOC ---
Date Seen The patient was seen on 11/15/16. Progress Note Hospitalist Progress Note Subjective: The patient has no complaints today Objective: Physical Exam: Vitals: Vital Sign - Last 24 Hours 11/14/16 11/14/16 11/14/16 11/14/16 14:29 14:34 14:40 14:46 Temp 99.5 Pulse 101 117 103 98 Resp 18 18 B/P 150/67 149/68 133/79 149/65 11/14/16 11/14/16 11/14/16 11/14/16 15:20 15:54 16:00 16:18 Temp 101.3 102.8 Pulse 91 97 Resp 18 B/P 157/70 133/61 Pulse Ox 96 96 O2 Delivery Room Air Room Air Room Air 11/14/16 11/14/16 11/14/16 11/14/16 16:26 16:45 17:00 20:00 Temp 98.9 Resp 18 B/P 144/62 O2 Delivery Room Air Room Air 11/14/16 11/14/16 11/14/16 11/15/16 20:00 21:00 23:59 04:00 Temp 98.4 98.7 98.9 Pulse 102 102 98 84 Resp 20 B/P 91/53 91/53 88/44 93/52 Pulse Ox 94 93 91 O2 Delivery Room Air Room Air Room Air 11/15/16 11/15/16 11/15/16 11/15/16 07:35 08:12 09:00 09:00 Temp 97.2 Pulse 80 89 Resp 20 B/P 121/79 110/55 110/55 Pulse Ox 92 O2 Delivery Room Air Room Air 11/15/16 12:00 Temp 97.1 Pulse 73 Resp 20 B/P 106/54 Pulse Ox 96 O2 Delivery Room Air General: Awake, alert, no acute distress HEENT: Normocephalic, atraumatic, extraocular movements intact CV: Regular rate and rhythm Lungs: Clear to auscultation bilaterally, no wheeze Abd: Soft, nondistended, nontender Extremities: No edema Neuro: Alert and oriented 3, normal speech Psych: normal mood and affect Labs and Imaging: Laboratory Tests 11/15/16 05:29 Anion Gap 7 L, Red Blood Count 2.69 L, Mean Corpuscular Volume 99.8 H, Mean Corpuscular Hemoglobin 31.9, Mean Corpuscular Hemoglobin Concent 32.0, Red Cell Distribution Width 15.5 H Assessment and Plan: 80-year-old male with end-stage renal disease on hemodialysis, 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 Also found to have large endoleak in the distal thoracic aortic aneurysm outside and posterior to the graft, increased in size from 2 months ago. 1. Severe sepsis secondary to staph aureus bacteremia: Lactate went up to as high as 3.4, but has now normalized. First set of blood cultures grew MSSA in 1 out of 2 bottles. Repeat blood cultures are negative. White count has now normalized. Patient was changed from vanc to nafcillin yesterday, and subsequently had fevers. Will change back to vancomycin. Can stop cefepime at this time. TTE shows preserved EF with grade 1 diastolic dysfunction, as well as trace AR and trivial , mild MR, mod TR, and mild pHTN. COREY does not show any evidence of vegetation. Unfortunately, we do not have ID coverage this week. CRP had been steadily increasing, but today has started to trend down. I suspect that the source of his bacteremia is his leaking graft. After discussion with Dr. Bernabe today, will likely leave him on IV vanc, as this can easily be administered with dialysis even after he is discharged. 2. Hypertension: BP low overnight; hold home Norvasc, Imdur. Continue Lopressor. 3. Hypothyroidism: Continue home Synthroid. 4. Coronary artery disease: Continue home beta cornelia given low BP. Patient is not currently on a statin, which should be discussed with his outpatient physicians. The patient is unable to tolerate any antiplatelets secondary to his thrombocytopenia. Continue home zetia. 5. BPH: Continue home Flomax. 6. End-stage renal disease on hemodialysis: Continue home Renvela. We appreciate nephrology's assistance with hemodialysis. 7. Chronic anemia: Secondary to end-stage renal disease: Hemoglobin is currently stable. 8. Chronic thrombocytopenia: Platelets appear to currently be at baseline. The patient cannot tolerate heparin or the OPTi flux polysulfone dialyzer. 9. TTP of RUQ on exam: LFTS normal; RUQ US shows only mild gallbladder wall thickening and right renal cysts. 10. 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 CTA reveals that the leak has increased since August 2016 from 2.5x1.2x2.5 cm to 4.8x2.1x6.8 cm. I have spoken to [facility] on 11/13, and they have agreed to accept the patient for vascular surgery services, which we do not have here. I suspect that this may explain the vague back and side pain he has been intermittently complaining of. However, the patient has refused transfer to [facility]. He understands that we are incapable of treating his enlarging endoleak and that it will only get worse. He understands that it will eventually kill him and he is willing to accept these risks. He would like to remain here and be treated for the bacteremia. He says he does not want to go to [place] again and he does not want to have any more surgeries. DVT prophylaxis: Teds and SCDs Dispo: pending stabilization of fevers and BP; transfer to the floor He has expressed his wish to be DNR/DNI, which we will honor. We also will honor his desire to not have a central line or pressors. VS, I&O, 24H, [place] Vital Signs/I&O Vital Signs Date Time Temp Pulse Resp B/P Pulse Ox O2 Delivery O2 Flow Rate FiO2 11/15/16 12:00 97.1 73 20 106/54 96 Room Air I&O- Last 24 Hours up to 6 AM 11/15/16 06:00 Intake Total 1070 ml Output Total 1050 ml Balance 20 ml Laboratory Data 24H LABS Laboratory Tests 2 11/15/16 05:29: Albumin 2.0L, Blood Urea Nitrogen 29H, Creatinine 4.72H, Sodium Level 137, Potassium Level 3.4L, Chloride Level 99, Carbon Dioxide Level 31, Anion Gap 7L, C-Reactive Protein, Quantitative 22.30H, Calcium Level 8.1L, Glomerular Filtration Rate 12.7L, Magnesium Level 2.4, Phosphorus Level 3.7 CBC/BMP Laboratory Tests 11/15/16 05:29 Anion Gap 7 L, Red Blood Count 2.69 L, Mean Corpuscular Volume 99.8 H, Mean Corpuscular Hemoglobin 31.9, Mean Corpuscular Hemoglobin Concent 32.0, Red Cell Distribution Width 15.5 H Microbiology Microbiology 11/13/16 Blood Culture - Preliminary, Resulted No Growth after 48 hours. All Specime... 11/13/16 Blood Culture - Preliminary, Resulted No Growth after 48 hours. All Specime... 11/10/16 Blood Culture - Final, Complete NO GROWTH AFTER 5 DAYS 11/10/16 Blood Culture - Final, Complete NO GROWTH AFTER 5 DAYS 11/09/16 Blood Culture - Final, Complete Staphylococcus Aureus 11/09/16 Blood Culture - Final, Complete NO GROWTH AFTER 5 DAYS 11/09/16 Respiratory Virus Panel (PCR) (CATHERINE) - Final, Complete 11/09/16 Influenza Virus Type A Antigen - Final, Complete 11/09/16 Influenza Virus Type B Antigen - Final, Complete ADRIANA MOREJON Nov 15, 2016 14:10
--- NOTE | 2016-11-15 15:08 | PHACANCOPD ---
PHARMACY VANCOMYCIN DOSING Pt Demographics Demographics Patient Age:81 , Weight:72.100 , Gender: male Adjusted Body Weight Date: 11/10/16, Adjusted Body Weight: [71.3] Kg Vancomycin Vancomycin Target Ranges: 15-20 mcg/ml Vancomycin Load Y/N: Yes Load Dose Date Time Vancomycin Load Dose: 1000MG Date: 11-09 Time: 2200 Vancomycin Dose Date: 11/10/16. Current Vancomycin Dose: Intermittent Dosing?: Yes Labs Micro Microbiology 11/13/16 Blood Culture - Preliminary, Resulted No Growth after 48 hours. All Specime... 11/13/16 Blood Culture - Preliminary, Resulted No Growth after 48 hours. All Specime... 11/10/16 Blood Culture - Final, Complete NO GROWTH AFTER 5 DAYS 11/10/16 Blood Culture - Final, Complete NO GROWTH AFTER 5 DAYS 11/09/16 Blood Culture - Final, Complete Staphylococcus Aureus 11/09/16 Blood Culture - Final, Complete NO GROWTH AFTER 5 DAYS 11/09/16 Respiratory Virus Panel (PCR) (CATHERINE) - Final, Complete 11/09/16 Influenza Virus Type A Antigen - Final, Complete 11/09/16 Influenza Virus Type B Antigen - Final, Complete Creatinine Clearance Date:11/10/16. Creatinine Clearance: . Pending Labs RANDOM IN AM Assessment and Plan Maintaining Current Dose?: Yes Reason for dose change: No Dose Change Pharmacist Note Pharmacist Note 11/15/16: Vancomycin tx was discontinued yesterday due to resulting MSSA blood cultures, and was streamlined to IV nafcillin. The vancomycin tx was restarted today and IV nafcillin discontinued due to patient spiking fevers after yesterday's change in therapy. A one time 1g vancomycin dose was given this morning @0830, followed by vancomycin 1g IV HD. I have scheduled a random level to be drawn tomorrow morning, 11/16/16 @0500, with morning labs to ensure that adequate levels (15-20mcg/ml) are being maintained for the treatment of MSSA bacteremia. Date: 11/10/16. Pharmacist note:Patient on hemodialysis. Gave 1000mg load. Random level ordered for 11-10 in am. Will dose intermittent by levels. Will comtinue to monitor and make adjustments as needed. KENNEDY MARSHALL PHARMACY Nov 15, 2016 15:08
[2016-11-15 16:00] VITALS: BP 113/54
[2016-11-15] MEDS ORDERED: traMADol 50 MG TAB PO PRN (16:30)
[2016-11-15 20:00] VITALS: BP 128/58
[2016-11-15] MEDS: traMADol 50 MG TAB PO PRN (20:27)
[2016-11-16] VITALS: BP 128/59
[2016-11-16] MEDS: traMADol 50 MG TAB PO PRN ×2 (02:49→12:39)
[2016-11-16 05:23] LABS: MEAN CORPUSCULAR HGB CONC 31.4 g/dl (32.0-36.5); MEAN CORPUSCULAR VOLUME 101.9 fl (80.0-96.0); RED CELL DISTRIBUTION WIDTH 15.6 % (11.5-14.5); WHITE BLOOD COUNT 12.4 K/mm3 (4.0-10.0)
[2016-11-16 05:38] LABS: MAGNESIUM LEVEL 2.4 MG/DL (1.8-2.4); VANCOMYCIN RANDOM 28.4 UG/ML
[2016-11-16] MEDS ORDERED: VANCOMYCIN HCL 1,000 MG, VIAL MATE ADAPTER 1 EACH in D5W 250 ML IV SCH (06:00)
[2016-11-16] MEDS: SLF 3 ML SYR IV SCH (06:45)
[2016-11-16] MEDS: EZETIMIBE 10 MG TAB (ZETIA) PO SCH (06:46)
[2016-11-16] MEDS: SENOKOT S TAB PO SCH (06:46)
[2016-11-16] MEDS: LEVOTHYROXINE 0.025 MG TAB (25 MCG) PO SCH (06:46)
[2016-11-16] MEDS: VITAMIN D 1,000 INTERNATIONAL UNITS TABLET PO SCH (06:46)
[2016-11-16 06:47] VITALS: BP 133/63
[2016-11-16] MEDS: (RENVELA) SEVELAMER **CARBONate** 800 MG TAB PO SCH (06:47)
[2016-11-16] MEDS: TAMSULOSIN 0.4 MG CAP PO SCH (06:47)
[2016-11-16] MEDS: FEBUXOSTAT 40 MG TABLET (ULORIC) PO SCH (06:47)
[2016-11-16] MEDS: amLODIPine 5 MG TAB PO SCH (06:47)
[2016-11-16 08:07] VITALS: BP 132/63
[2016-11-16 08:16] LABS: ALBUMIN 2.3 GM/DL (3.2-5.2); CALCIUM LEVEL 8.4 MG/DL (8.8-10.2); CREATININE FOR GFR 6.67 MG/DL (0.70-1.30); GLOMERULAR FILTRATION RATE 8.5 (>35); PHOSPHORUS LEVEL 4.8 MG/DL (2.5-4.9)
[2016-11-16] MEDS ORDERED: oxyCODONE 5MG TAB PO PRN (10:15)
[2016-11-16] MEDS ORDERED: VANC1VLAD INJ (11:38)
[2016-11-16] MEDS ORDERED: TRAM50TA2 PO (11:47)
--- NOTE | 2016-11-16 12:55 | IPN ---
DATE OF VISIT: 11/16/2016 Mr. Gonzales is seen this morning on his bedside during hemodialysis. His granddaughter is on his bedside. The patient has shivering and chills and also reports abdominal pain this morning. He did not eat as he felt nauseated. He denies any dyspnea or chest pain. He is currently being treated for staph aureus bacteremia due to a possible infected thoracic aortic graft which already has a periaortic leak. The patient has declined any surgical evaluation or intervention. He has opted to continue with hemodialysis so far. On physical exam, temperature 98.2 degrees Fahrenheit, heart rate 78 per minute and respiratory rate 18 per minute. Blood pressure 132/63 mmHg and oxygen saturation 97% on room air. Head is atraumatic. Ears, nose and throat are unremarkable. Neck is supple and without jugular venous distention (JVD). Heart sounds are regular and lungs with slightly diminished breath sounds. Abdomen is somewhat tender in epigastric area. Bowel sounds are hypoactive. Extremities have no cyanosis or clubbing. Today's labs show WBC count 12.4, hemoglobin 10.1 and hematocrit 32.1. Platelets 285. Sodium 134 and potassium 4.0. BUN 44 and creatinine 6.67. A vancomycin level this morning is 28.4. All repeat blood cultures have been negative so far except one blood culture from November 09 which was positive for staph aureus. PROBLEMS: 1. End-stage renal disease. The patient is currently being dialyzed. He has opted to continue with hemodialysis. We are not using any heparin and removing only 2 liters of fluid as tolerated. 2. Staph aureus bacteremia with possibly infected thoracic aortic graft. The patient is receiving vancomycin after each dialysis. He does not wish any surgical intervention due to his advanced age and high risk procedure. I have discussed with the patient's granddaughter at length and explained his poor prognosis. At this point the patient and his family has not decided about comfort measures or hospice care. The patient will continue to receive vancomycin after each dialysis. 3. Anemia at present. His anemia is stable and improved. I do not feel that he had any significant periaortic bleeding. We will continue to monitor closely and not use any heparin. There is no intervention needed. 4. Disposition. From a renal standpoint, the patient can be discharged to home as he does not wish any other procedures. He can continue with intravenous vancomycin after each dialysis as outpatient. 5. Hypertension. Blood pressure has been reasonably well-controlled on current antihypertensive meds.
--- NOTE | 2016-11-16 13:16 | DS.PDOC ---
Discharge Summary General Date of Admission Nov 09, 2016 at 21:10 Date of Discharge 11/16/2016 Discharge Summary DATE OF ADMISSION: 11/09/2016 DATE OF DISCHARGE: 11/16/2016 PRIMARY CARE PHYSICIAN: Dr. Lepe DISCHARGE DIAGNOS(E)S: Severe sepsis MSSA bacteremia Enlarging endoleak of the thoracic aortic aneurysm graft HPI & HOSPITAL COURSE: 80-year-old male with end-stage renal disease on hemodialysis, 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 Also found to have large endoleak in the distal thoracic aortic aneurysm outside and posterior to the graft, increased in size from 2 months ago. 1. Severe sepsis secondary to staph aureus bacteremia: Lactate went up to as high as 3.4, but has now normalized. First set of blood cultures grew MSSA in 1 out of 2 bottles. Repeat blood cultures are negative. Patient has been afebrile on vancomycin. TTE shows preserved EF with grade 1 diastolic dysfunction, as well as trace AR and trivial , mild MR, mod TR, and mild pHTN. COREY does not show any evidence of vegetation. CRP has begun to trend down. I suspect that the source of his bacteremia is his leaking graft. After discussion with Dr. Bernabe, will likely leave him on IV vanc, as this can easily be administered with dialysis even after he is discharged. In light of the fact that he has declined any surgical intervention for the leaking, likely infected graft, Dr. Bernabe and I have discussed that he will likely need IV vancomycin for the rest of his life. At this time, the patient has not made any decisions for [employer] or hospice care. 2. Hypertension: Continue lopressor and norvasc. 3. Hypothyroidism: Continue home Synthroid. 4. Coronary artery disease: Continue home beta cornelia. Patient is not currently on a statin, which should be discussed with his outpatient physicians. The patient is unable to tolerate any antiplatelets secondary to his thrombocytopenia. Continue home zetia. 5. BPH: Continue home Flomax. 6. End-stage renal disease on hemodialysis: We appreciate nephrology's assistance with hemodialysis. 7. Chronic anemia: Secondary to end-stage renal disease: Hemoglobin is currently stable. 8. Chronic thrombocytopenia: Platelets appear to currently be at baseline. The patient cannot tolerate heparin or the OPTi flux polysulfone dialyzer. 9. TTP of RUQ on exam: LFTS normal; RUQ US shows only mild gallbladder wall thickening and right renal cysts. 10. 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 CTA reveals that the leak has increased since August 2016 from 2.5x1.2x2.5 cm to 4.8x2.1x6.8 cm. I have spoken to [facility] on 11/13, and they have agreed to accept the patient for vascular surgery services, which we do not have here. I suspect that this may explain the vague back and side pain he has been intermittently complaining of. However, the patient has refused transfer to [facility]. He understands that we are incapable of treating his enlarging endoleak and that it will only get worse. He understands that it will eventually kill him and he is willing to accept these risks. He would like to remain here and be treated for the bacteremia medically. He says he does not want to go to [place] again and he does not want to have any more surgeries. DVT prophylaxis: Teds and SCDs He has expressed his wish to be DNR/DNI, which we will honor. We also will honor his desire to not have a central line or pressors. At this point, without surgical intervention, the patient's enlarging, likely infected, endoleak is a terminal condition. Although the patient has not made any decisions for [employer] or hospice care at this time, he desires to go home. We will discharge him home, and he will continue to get IV vancomycin after dialysis. Dr. Bernabe has graciously agreed to arrange and monitor the vancomycin with hemodialysis. PHYSICAL EXAMINATION ON DISCHARGE: VITAL SIGNS: Vital Signs Date Time Temp Pulse Resp B/P Pulse Ox O2 Delivery O2 Flow Rate FiO2 11/16/16 12:39 20 11/16/16 08:07 98.2 77 132/63 97 Room Air General: Awake, alert, no acute distress HEENT: Normocephalic, atraumatic, extraocular movements intact CV: Regular rate and rhythm Lungs: Clear to auscultation bilaterally, no wheeze Abd: Soft, nondistended, nontender Extremities: No edema Neuro: Alert and oriented 3, normal speech Psych: normal mood and affect DISPOSITION: Home DISCHARGE INSTRUCTIONS: Follow-up with PCP within one week. Follow-up with Dr. Bernabe in 1-2 weeks. Please keep all scheduled dialysis appointments as the antibiotic will be administered during dialysis. If symptoms return, or if you experience worsening of your symptoms, please call your doctor or return to the emergency department. ITEMS THAT NEED OUTPATIENT FOLLOWUP: Dr. Bernabe will be ordering and following the patient's vancomycin and monitoring labs through dialysis. Patient was seen and examined by me on the day of discharge, and I spent a total time of greater than 30 minutes on this discharge. Vital Signs/I&Os Vital Signs Date Time Temp Pulse Resp B/P Pulse Ox O2 Delivery O2 Flow Rate FiO2 11/16/16 12:39 20 11/16/16 08:07 98.2 77 132/63 97 Room Air I&O- Last 24 Hours up to 6 AM 11/16/16 05:59 Intake Total 1330 ml Output Total 0 ml Balance 1330 ml Laboratory Data Labs 24H Laboratory Tests 2 11/16/16 05:12: Albumin 2.3L, Blood Urea Nitrogen 44#H, Creatinine 6.67H, Sodium Level 134L, Potassium Level 4.0, Chloride Level 96L, Carbon Dioxide Level 27, Anion Gap 11, Calcium Level 8.4L, Glomerular Filtration Rate 8.5L, Magnesium Level 2.4, Phosphorus Level 4.8#, Random Vancomycin Level 28.4 CBC/BMP Laboratory Tests 11/16/16 05:12 Anion Gap 11, Red Blood Count 3.15 L, Mean Corpuscular Volume 101.9 H, Mean Corpuscular Hemoglobin 32.0, Mean Corpuscular Hemoglobin Concent 31.4 L, Red Cell Distribution Width 15.6 H Microbiology Microbiology 11/13/16 Blood Culture - Preliminary, Resulted No Growth after 72 hours. All specime... 11/13/16 Blood Culture - Preliminary, Resulted No Growth after 72 hours. All specime... 11/10/16 Blood Culture - Final, Complete NO GROWTH AFTER 5 DAYS 11/10/16 Blood Culture - Final, Complete NO GROWTH AFTER 5 DAYS 11/09/16 Blood Culture - Final, Complete Staphylococcus Aureus 11/09/16 Blood Culture - Final, Complete NO GROWTH AFTER 5 DAYS 11/09/16 Respiratory Virus Panel (PCR) (CATHERINE) - Final, Complete 11/09/16 Influenza Virus Type A Antigen - Final, Complete 11/09/16 Influenza Virus Type B Antigen - Final, Complete Discharge Medications Scheduled Amlodipine Besylate (Amlodipine Besylate) 5 Mg Tab 5 MG PO DAILY Ezetimibe (Ezetimibe) 10 Mg Tab 10 MG PO DAILY Febuxostat (Uloric) 40 Mg Tab 40 MG PO DAILY Levothyroxine Sodium (Synthroid) 25 Mcg Tab 0.025 MG PO DAILY@06 Metoprolol Tartrate (Lopressor) 100 Mg Tab 100 MG PO BID Tamsulosin Hydrochloride (Flomax) 0.4 Mg Cap 0.4 MG PO DAILY Vancomycin HCl (Vancomycin HCl) 1,000 Mg Soln 1,000 MG INJ HD To be administered at the dialysis center; Dr. Bernabe will coordinate this. Vitamin D (Vitamin D3) 1,000 Units Tab 1,000 UNITS PO DAILY Scheduled PRN Acetaminophen (Mapap) 325 Mg Tab 650 MG PO Q4HP PRN PRN MILD PAIN OR FEVER Tramadol HCl (Tramadol HCl) 50 Mg Tab 50 MG PO Q6HP PRN PRN MODERATE/SEVERE PAIN (PS 5-10) Allergies Coded Allergies: Heparin (Verified Adverse Reaction, Intermediate, bleeding, 02/23/16) Patient with bleeding tendency, noted to have mildly elvated Heparin induced antibody, would avoid in future if possible Uncoded Allergies: [id number] Optiflux polysulfone Dialyzer (Allergy, Intermediate, thrombocytopenia and hemoptysis, 09/07/16) ADRIANA MOREJON Nov 16, 2016 13:16
[2016-11-16] MEDS ORDERED: CHECK TO SEE IF PATIENT IS RECEIVING DIALYSIS TODAY AND REFER TO THE VANCOMYCIN ORDER XX SCH (16:00)
== END 2016-11-16 13:03 | disposition home or self-care (01) | DRG 314 ==
LOC: EDSEX 10:30 → EDBD 10:30 → M ED 12:58 → M ED INP 21:10 → M PCU 11-10 18:10
PROVIDERS: ADMIT Hospitalist; ATTEND Hospitalist
DX: T82.330A Leakage of aortic (bifurcation) graft (replacement), initial encounter (principal); A41.9 Sepsis, unspecified organism; N18.6 End stage renal disease; N25.81 Secondary hyperparathyroidism of renal origin; T81.4XXA Infection following a procedure, initial encounter; I10 Essential (primary) hypertension; E78.5 Hyperlipidemia, unspecified; E03.9 Hypothyroidism, unspecified; D69.6 Thrombocytopenia, unspecified; T82.7XXA Infection and inflammatory reaction due to other cardiac and vascular devices, implants and grafts, initial encounter; Z79.899 Other long term (current) drug therapy; Z88.8 Allergy status to other drugs, medicaments and biological substances; D64.9 Anemia, unspecified

== ENCOUNTER → 2016-12-26 | Outpatient (REF) | payer MEDICARE, MEDICAID ==
[~2016-12-26] MED LIST changes: +ACET65TA PO; +DARB300VL IV; +EZET10TA PO; +LOPR1TAB7 PO; +ONDA4VLL IV; +SENN1TAB2 PO; +TRAM50TA2 PO; +VANC1VLAD INJ; +VITAD1000T PO
== END ==
LOC: M LAB REF 13:14
PROVIDERS: ATTEND Internal Medicine Nephrology
DX: D50.0 Iron deficiency anemia secondary to blood loss (chronic) (principal)

== ENCOUNTER 2016-12-27 09:52 | Outpatient (CLI) | payer MEDICARE, MEDICAID ==
[2016-12-27 10:21] VITALS: BP 124/60
== END 2016-12-27 16:40 | disposition home or self-care (01) ==
LOC: M OPCLI5PR 09:52 → M MS5PR 09:58 → M OPCLI5PR 16:40
PROVIDERS: ATTEND Internal Medicine Nephrology
DX: D64.9 Anemia, unspecified (principal); Z88.8 Allergy status to other drugs, medicaments and biological substances; Z79.899 Other long term (current) drug therapy
CPT/HCPCS: 36430; P9016